=== PATIENT | male | born 1975 | race Caucasian/White ===

== ENCOUNTER 2019-11-26 10:58 | Outpatient (CLI) | payer OTHER, SELFPAY ==
--- NOTE | ~2019-11-26 | CT_ITS ---
EXAMINATION: CT sinus wo con DATE: 11/26/2019 11:22 INDICATION: Allergic rhinitis unspecified TECHNIQUE: Computed tomography (CT) of the paranasal sinuses was performed without intravenous contra st. The dose-length product (DLP) was 305.77 mGy-cm. Iterative reconstruction was used. COMPARISON: None FINDINGS: There is normal development and pneumatization of the paranasal sinuses. There is near comp lete opacification of the left anterior ethmoidal air cells and moderate opacification of the right a nterior ethmoidal air cells. Mild mucosal thickening is present inferiorly in the maxillary sinuses, left greater than right. There is mild mucosal thickening of the sphenoid sinuses. The mastoid air ce lls are well aerated. The bilateral ostiomeatal complexes are occluded. Visualized soft tissues are u nremarkable. IMPRESSION: 1. Sinusitis as detailed above. Reviewed, dictated and finalized at location A.
== END 2019-11-26 10:59 | disposition home or self-care (01) ==
LOC: ANHIMG 11:03
PROVIDERS: PCP Emergency Medicine; Visit Provider Emergency Medicine
DX: J30.9 Allergic rhinitis, unspecified (principal)
CPT/HCPCS: 70486

== ENCOUNTER 2019-12-24 00:54 | Outpatient (CLI) | payer OTHER, SELFPAY ==
[2019-12-24 19:08] LABS: SARS-CoV-2 RNA PCR Negative
== END 2019-12-24 00:55 | disposition home or self-care (01) ==
LOC: ANHCOVIDDT 00:54
PROVIDERS: PCP Emergency Medicine; Visit Provider Otolaryngology
DX: Z01.812 Encounter for preprocedural laboratory examination (principal); Z11.59 Encounter for screening for other viral diseases
CPT/HCPCS: 87635; C9803; U0003

== ENCOUNTER 2019-12-31 00:59 | Outpatient (CLI) | payer OTHER, SELFPAY ==
[2019-12-31 19:25] LABS: SARS-CoV-2 RNA PCR Negative
== END 2019-12-31 01:00 | disposition home or self-care (01) ==
LOC: ANHCOVIDDT 00:59
PROVIDERS: Anesthesiology; PCP Emergency Medicine; Visit Provider Otolaryngology
DX: Z01.818 Encounter for other preprocedural examination (principal); Z11.59 Encounter for screening for other viral diseases
CPT/HCPCS: 87635; C9803; U0003

== ENCOUNTER 2020-01-02 00:51 | Day surgery (SDC) | payer OTHER, SELFPAY ==
[2019-12-12 09:44] VITALS: BMI 37.3
--- NOTE | 2019-12-24 06:44 | PM.HPGS ---
History of Present Illness History of Present Illness Consent: Risks, benefits, and alternatives have been discussed and questions answered. Patient agrees to proceed with procedure. Chief complaint: Chronic Sinusitis, Septal Deviation Narrative: Neal Wagner is a 44 year old male is admitted for a septoplasty and an anterior-posterior ethmoidectomy and maxillary antrostomy on both sides Review of Systems Review of Systems: All systems reviewed & are unremarkable except as noted in HPI and below PMFSH Social History Social History Smoking status: Never smoker Alcohol intake: current Drinks per week: 2 Substance use: current Substance use type: marijuana Last use: 12/12/19 Spiritual care concerns: No Meds Home Medications and Allergies Home Medications Medication Instructions Recorded Confirmed Type alprazolam 0.5 mg tablet 0.5 mg PO BID PRN #30 tablet 11/06/19 12/12/19 Rx budesonide-formoterol HFA 80 2 puff INHALATION Q12H 11/06/19 12/12/19 History mcg-4.5 mcg/actuation aerosol inhaler fluticasone propionate 50 1 spray NASAL DAILY 11/06/19 12/12/19 History mcg/actuation nasal spray,suspension clindamycin HCl 300 mg capsule 300 mg PO Q8H #30 cap 12/11/19 12/12/19 Rx albuterol sulfate 90 mcg/actuation See Rx Instructions .ROUTE 12/18/19 Rx aerosol inhaler .COMPLEX #8.5 inhaler tramadol 50 mg tablet 50 mg PO Q6H PRN #30 tablet 12/18/19 12/18/19 Rx Allergies Allergy/AdvReac Type Severity Reaction Status Date / Time No Known Allergies Allergy Unverified 12/12/19 09:44 Assessment and Plan Additional Plan Septoplasty and anterior-posterior ethmoidectomy maxillary antrostomy bilateral
--- NOTE | 2019-12-26 15:29 | PC.NURSE ---
PREV HX AND MEDICATIONS REMAIN UNCHANGED FROM 12/22/19 ORIGINAL INTERVIEW. NEW COVID TEST DATE AND UPDATED INSTRUCTIONS GIVEN TO PATIENT.
--- NOTE | 2019-12-31 06:38 | PM.HPGS ---
History of Present Illness History of Present Illness Consent: Risks, benefits, and alternatives have been discussed and questions answered. Patient agrees to proceed with procedure. Chief complaint: Chronic Sinusitis, Septal Deviation Narrative: Neal Wagner is a 44 year old male Has recurring episodes of sinusitis been treated with various courses of antibiotics he has a deviated septum with obstruction and trouble breathing out of his nose he is admitted for elective septoplasty and sinus procedure anterior-posterior ethmoid maxillary antrostomy sphenoidotom Review of Systems Review of Systems: All systems reviewed & are unremarkable except as noted in HPI and below PMFSH Social History Social History Smoking status: Never smoker Alcohol intake: current Drinks per week: 2 Substance use: current Substance use type: marijuana Last use: 12/12/19 Spiritual care concerns: No Meds Home Medications and Allergies Home Medications Medication Instructions Recorded Confirmed Type alprazolam 0.5 mg tablet 0.5 mg PO BID PRN #30 tablet 11/06/19 12/12/19 Rx budesonide-formoterol HFA 80 2 puff INHALATION Q12H 11/06/19 12/12/19 History mcg-4.5 mcg/actuation aerosol inhaler fluticasone propionate 50 1 spray NASAL DAILY 11/06/19 12/12/19 History mcg/actuation nasal spray,suspension clindamycin HCl 300 mg capsule 300 mg PO Q8H #30 cap 12/11/19 12/12/19 Rx albuterol sulfate 90 mcg/actuation See Rx Instructions .ROUTE 12/18/19 12/26/19 Rx aerosol inhaler .COMPLEX #8.5 inhaler tramadol 50 mg tablet 50 mg PO Q6H PRN #30 tablet 12/18/19 12/26/19 Rx omeprazole 20 mg capsule,delayed See Rx Instructions .ROUTE 12/27/19 Rx release .COMPLEX #60 cap Allergies Allergy/AdvReac Type Severity Reaction Status Date / Time No Known Allergies Allergy Unverified 12/26/19 15:28 Assessment and Plan Additional Plan plan is for septoplasty bilateral anterior-posterior ethmoid maxillary antrostomy and sphenoidotomy bilater
[2020-01-02] VITALS (9 sets, daily range): BP systolic 104–140; BP diastolic 62–100; PULSE 85–96; RESP 14–35; TEMP 36.4–37.2; O2SAT 98–100
--- NOTE | 2020-01-02 06:05 | WPDHPUPDATE1 ---
History and Physical Update Update Date/Time: 01/02/20 06:05 History and Physical has been reviewed, including an updated exam of the patient. There are NO changes in the patient's condition. Risks, benefits, and alternatives have been discussed and questions answered. Patient agrees to proceed with procedure.
[2020-01-02] MEDS: ACETAMINOPHEN 500 MG TABLET 1000 MG PO (07:17)
[2020-01-02] MEDS: LACTATED RINGERS 1,000 ML 30 ML IV CONT ×2 (07:30→09:23)
--- NOTE | 2020-01-02 07:39 | WPDANESEPPF ---
Anes - Initial Pre Proc Eval Procedure: Operation Date: 01/02/20 09:00 Proposed Procedures p Septoplasty, Maxillary Antrostomy, Sphenoidotomy, Ethmoidectomy, - Kashmir Craig MD Date/Time: 01/02/20 07:39 Surgeon: Kashmir Craig MD Pre Op Diagnosis: Chronic Sinusitis, Septal Deviation Patient Data Age: 44 Gender: M Height: 5 ft 9 in Weight: 118.9 kg Last Vital Signs Temp 97.6 F 01/02/20 07:35 Pulse 96 01/02/20 07:35 Resp 20 01/02/20 07:35 BP 125/79 01/02/20 07:35 Pulse Ox 98 01/02/20 07:35 Allergies Allergy/AdvReac Type Severity Reaction Status Date / Time No Known Allergies Allergy Verified 01/02/20 07:11 Home Medications Medication Instructions Recorded Confirmed Type alprazolam 0.5 mg tablet 0.5 mg PO BID PRN #30 tablet 11/06/19 01/02/20 Rx budesonide-formoterol HFA 80 2 puff INHALATION Q12H 11/06/19 01/02/20 History mcg-4.5 mcg/actuation aerosol inhaler fluticasone propionate 50 1 spray NASAL DAILY 11/06/19 01/02/20 History mcg/actuation nasal spray,suspension albuterol sulfate 90 mcg/actuation See Rx Instructions .ROUTE 12/18/19 01/02/20 Rx aerosol inhaler .COMPLEX #8.5 inhaler tramadol 50 mg tablet 50 mg PO Q6H PRN #30 tablet 12/18/19 01/02/20 Rx omeprazole 20 mg capsule,delayed See Rx Instructions .ROUTE 12/27/19 01/02/20 Rx release .COMPLEX #60 cap Patient hx anesthesia problems: none Family hx anesthesia problems: none PMFSH Social History Social History Smoking status: Never smoker Alcohol intake: current Drinks per week: 2 Substance use: current Substance use type: marijuana Last use: 12/12/19 Spiritual care concerns: No Anes - Eval Final PreProcedure Day of Procedure 01/02/20 07:39 Patient weight: obese Heart: regular rate and rhythm Lungs: clear to auscultation Airway: Mallampati scale class III Neurological: alert and oriented Last oral intake: >/= 8 hours ASA classification: III Emergent: no Anesthetic plan: proceed Anesthesia type and monitoring: general ETT and standard monitoring Informed Consent: The patient's anesthetic plan and its attendant risks and benefits were discussed with the patient/family/POA. Questions were solicited and answers provided to the satisfaction of the patient/family/POA.
[2020-01-02] MEDS: MIDAZOLAM HCL 2 MG/2 ML VIAL IV PUSH (07:42)
[2020-01-02] MEDS: LIDO 1%/EPINEPHRINE 1:100,000 20 ML VIAL 5 ML INFILTRATE (08:39)
--- NOTE | 2020-01-02 09:17 | PM.PROC ---
Procedure Note - Detailed Date of procedure: 01/02/20 Pre-op diagnosis: Chronic Sinusitis, Septal Deviation Post-op diagnosis: same Procedure performed: FESS Description of procedure: Patient prepped and draped in usual fashion after induction of general endotracheal anesthesia. The nose was packed with cocaine 4% impregnated cottonoids. Injected 1% xylocaine 1 to [id number] epinephrine. With the aid of the 0 degree endoscope on the right side the nose was inspected the middle turbinate was medialized and turbenectomy was done with the micro debrider the ethmoid bulla opened with microdebrider as was the basal lamella and the posterior ethmoid. The natural ostia of the maxillary sinus was opened and enlarged with microdebrider thickened mucous membrane lining was removed and then packed with a mature this procedure repeated on the other sinus with identical similar findings. Uncinectomy was done on both sides. The ethomoid bulla was opened with micro debrider thickened mucos membrane was removed. Was then packed with Surgicel. Patient awakened returned to recovery in good condition. the septum was injected with xylocaine with adrenaline a right john transection was made a left anterior and posterior tunnels elevated the bony cartilage junction the bony deviation was removed a strip of septal cartilage was removed off the maxillary crest crest this rolling the cartilaginous and bony remnants the midline of the incision was closed with 4 0 chromic and Whiteside splints sutured in with 2 0 silk patient awakened returned to recovery in good condition Anesthesia: GLMA Surgeon: Kashmir Craig MD Estimated blood loss (mL): 10 Drains: No Packing: Yes (Hemaderm) Pathology: none sent Complications: No immediate complications Condition: stable Disposition: PACU
--- NOTE | 2020-01-02 10:24 | SUR.PHASEI ---
1010 pt states he is experiencing a panic attack/reassurance and comfort measures provided.
== END 2020-01-02 11:40 | disposition home or self-care (01) ==
PROVIDERS: PCP Emergency Medicine; Visit Provider Otolaryngology
PROC: (CPT 30520; principal; 2020-01-02 09:00)
DX: J32.9 Chronic sinusitis, unspecified (principal); J34.2 Deviated nasal septum; F12.90 Cannabis use, unspecified, uncomplicated; E66.9 Obesity, unspecified; Z68.38 Body mass index [BMI] 38.0-38.9, adult
CPT/HCPCS: 31255; 31256; 61782; 30520; A9270; J0330; J1100; J2250; J2405; J2704; J3010; J7120

== ENCOUNTER 2020-01-25 15:07 | Emergency (ER) | payer OTHER, SELFPAY ==
[2020-01-25 15:15] VITALS: BP 128/76; PULSE 99; RESP 24; TEMP 36.7; O2SAT 99
--- NOTE | 2020-01-25 15:33 | ED.ALLEREA ---
HPI - Allergic Reaction General Chief complaint: Allergic Reaction Stated complaint: upper lip swollen Time Seen by Provider: 01/25/20 15:15 Source: patient Mode of arrival: ambulatory Limitations: no limitations History of Present Illness HPI narrative: Neal Wagner is a 44 yo male wit a PMH of GERD and seasonal allrgies who comes to express care with a swollen lip cheek periorbital swelling of unknown cause. Patient states he had so surgery 2 weeks ago because of seasonal allergies in the spring with the bathtub use a [place] pot however use tap water instead of sterile water. He said when he got a bath he noticed that his lips started to swell he was able to eat a few things for lunch is not having difficulty swallowing at this point but face lips area around eyes and his posterior pharynx is mildly edematous Related Data Home Medications Medication Instructions Recorded Confirmed budesonide-formoterol HFA 80 2 puff INHALATION Q12H 11/06/19 01/02/20 mcg-4.5 mcg/actuation aerosol inhaler fluticasone propionate 50 1 spray NASAL DAILY 11/06/19 01/02/20 mcg/actuation nasal spray,suspension Allergies Allergy/AdvReac Type Severity Reaction Status Date / Time No Known Allergies Allergy Verified 01/02/20 07:11 Review of Systems Review of Systems: Narrative: CONSTITUTIONAL: Denies fever, chills, sweats. EYES: Denies visual changes, redness, discharge. Bilateral periorbital eye swelling ENT: Denies rhinorrhea, congestion, sore throat, otalgia. Lower lip is greatly swollen able to speak without difficulty CARDIOVASCULAR: Denies chest pain, palpitations, edema. RESPIRATORY: Denies dyspnea, wheezing, cough no respiratory distress but posterior pharynx is mildly edematous GASTROINTESTINAL: Denies abdominal pain, nausea, vomiting, diarrhea. GENITOURINARY: Denies dysuria, hematuria, abnormal discharge SKIN: Denies rash or itching. No erythema NEUROLOGIC: Denies numbness, or focal weakness. PSYCHIATRIC: Denies anxiety or depression. [facility] Past Medical History Medical History Anxiety Chronic bronchitis Dyspnea on exertion Fatigue GERD (gastroesophageal reflux disease) Family History Family History Other Diabetes mellitus Social History Social History Smoking status: Never smoker Alcohol intake: current Drinks per week: 2 Substance use: current Substance use type: marijuana Last use: 12/12/19 Spiritual care concerns: No Comments At time of signature, I agree with nursing past medical, surgical, social and family history. There is no relevant family history pertinent to the presenting complaint. Exam Narrative: Exam Narrative: GENERAL: This is a well-nourished, well-developed patient, in mild distress. HEAD: normocephalic, atraumatic. EYES:Sclera clear/white. Vision is grossly intact. Periorbital edema EARS: External ears normal, Hearing grossly intact. NOSE: External nose normal without nasal discharge, nares without redness, no rhinorrhea. THROAT: Mucous membranes moist, posterior pharynx mild edema, no respiratory compromise NECK: Neck supple, non-tender CARDIOVASCULAR: Tachycardic rate and rhythm without murmurs, gallops, or rubs. RESPIRATORY: Clear to auscultation. Breath sounds equal bilaterally. No wheezes, rales, or rhonchi. GASTROINTESTINAL: Abdomen soft, non-tender, SKIN: warm, intact with no suspicious lesions or rash, good texture and turgor. Facial swelling, lips swollen NEURO: awake, alert, and oriented to person, place and time. There were no obvious focal neurologic abnormalities. Steady gait EXTREMITIES: Normal range of motion. BACK: Nontender without deformity Course Course Emergency Course: Given Solu-Medrol Pepcid and Benadryl here Given Medrol Dosepak plus Pepcid plus Benadryl Cautioned to
[2020-01-25] MEDS: methylPREDNISolone SOD SUCC 125 MG VIAL IM (15:42)
[2020-01-25] MEDS: diphenhydrAMINE HCl CAP 25 MG CAPSULE PO (15:42)
[2020-01-25] MEDS: FAMOTIDINE 20 MG TABLET PO (15:42)
== END 2020-01-25 16:08 | disposition home or self-care (01) ==
PROVIDERS: Emergency Provider Nurse Practitioner; PCP Emergency Medicine
DX: T78.3XXA Angioneurotic edema, initial encounter (principal); F41.9 Anxiety disorder, unspecified; K21.9 Gastro-esophageal reflux disease without esophagitis
CPT/HCPCS: 96372; 99213; A9270; G0463; J2930

== ENCOUNTER 2020-03-12 09:23 | Emergency (ER) | payer OTHER, SELFPAY ==
--- NOTE | ~2020-03-12 | XR_ITS ---
EXAMINATION: XR chest 2V DATE: 03/12/2020 09:58 INDICATION: Cough. TECHNIQUE: Frontal and lateral views of the chest were obtained. COMPARISON: None. FINDINGS: The chest demonstrates clear lungs without pneumonia, pleural effusion, or pneumothorax. Th e heart size is normal. IMPRESSION: 1. No acute cardiopulmonary disease. Reviewed, dictated and finalized at location A.
[2020-03-12 09:40] VITALS: BP 121/78; PULSE 115; RESP 20; TEMP 36.6; O2SAT 98
--- NOTE | 2020-03-12 09:43 | ED.URI ---
HPI - URI/Sore Throat General Chief Complaint: Upper Respiratory Infection Stated Complaint: chest congestion/shortness of breath/cough Time Seen by Provider: 03/12/20 09:49 Source: patient and RN notes reviewed History of Present Illness HPI Narrative: Patient is a 44-year-old male who presents the urgent care with complaints of chest congestion, shortness of breath and productive yellow cough. Patient states he is experiencing symptoms for approximately 7 months and has been following up with his doctor and ENT. Patient states 1 month ago he had a deviated septum repaired by the ENT and was supposed to rid of his shortness of breath . Patient states that it has not improved and he has been on several courses of steroids as well as using his inhaler. Patient states that in the last week he has had increased wheezing and multiple coughing fits. Patient is also had several negative COVID test. Currently is reporting of a runny nose, congestion, shortness of breath and cough. Denies of any fevers. States that he has been using [id number] cough medication, Claritin, Benadryl and the use of his inhaler. Denies chest pain. No other acute complaints. No acute distress noted. Patient aware of the plan of care. Some parts of this dictation were generated by voice recognition software and may contain typographical and/or grammatical inaccuracies. Related Data Allergies Allergy/AdvReac Type Severity Reaction Status Date / Time No Known Allergies Allergy Verified 03/12/20 09:46 Review of Systems Review of Systems: Narrative: CONSTITUTIONAL: Denies fever, chills, or sweats. EYES: Denies visual changes, redness, or discharge. ENT: Reports of runny nose and left otalgia CARDIOVASCULAR: Denies chest pain, palpitations, or edema. RESPIRATORY: Reports of a productive yellow cough with intermittent dyspnea GASTROINTESTINAL: Denies abdominal pain, nausea, vomiting, or diarrhea. GENITOURINARY: Denies dysuria or hematuria. SKIN: Denies rash or itching. MUSCULOSKELETAL: Denies back pain, joint pain, or myalgia. NEUROLOGIC: Denies headache, numbness, or weakness. All other systems reviewed are negative, except as documented in HPI. [facility] Social History Social History Smoking status: Never smoker Alcohol intake: current Drinks per week: 2 Substance use: current Substance use type: marijuana Last use: 12/12/19 Spiritual care concerns: No Comments At the time of my signature, I reviewed and agree with the nursing past medical, surgical, social, and family history. There is no relevant family history pertinent to the patient complaint. Exam Narrative: Exam Narrative: GENERAL: This is a well-nourished, well-developed patient, in no apparent distress. HEAD: normocephalic, atraumatic. EYES: PERRL. Sclera clear/white. Vision is grossly intact. EARS: External ears normal, auditory canals clear and without drainage, TMs normal without perforation. Hearing grossly intact. NOSE: External nose normal with no obvious nasal discharge, nares without redness, no rhinorrhea. THROAT: Mucous membranes moist, posterior pharynx clear. Mild postnasal drainage NECK: Neck supple CARDIOVASCULAR: Regular rate and rhythm without murmurs, gallops, or rubs. RESPIRATORY: Inspiratory and expiratory wheezes throughout with slight crackles to the bases; audible wheezing SKIN: warm, intact with no suspicious lesions or rash, good texture and turgor. NEURO: awake, alert, and oriented to person, place and time. There were no obvious focal neurologic abnormalities. EXTREMITIES: No clubbing, cyanosis, or edema. Course Vital Signs Vital signs: Vital Signs Temperature 97.9 F 03/12/20 09:40 Pulse Rate 115 H 03/12/20 09:40 Respiratory Rate 20 03/12/20 09:40 Blood Pressure 121/78 03/12/20 09:40 Pulse Oximetry 98 03/12/20 09:40 Temperature 97.9 F 03/12/20 09:40 Pulse Rate 115 H 10/0
== END 2020-03-12 10:28 | disposition home or self-care (01) ==
PROVIDERS: Emergency Provider Nurse Practitioner Family; PCP Emergency Medicine
DX: J40 Bronchitis, not specified as acute or chronic (principal); K21.9 Gastro-esophageal reflux disease without esophagitis; F41.9 Anxiety disorder, unspecified
CPT/HCPCS: 71046; 99213; G0463

== ENCOUNTER 2020-03-17 06:55 | Outpatient (NON) | payer OTHER, SELFPAY ==
[2020-03-17 18:17] LABS: SARS-CoV-2 RNA PCR Negative
== END 2020-03-17 06:56 ==
PROVIDERS: PCP Emergency Medicine; Visit Provider Emergency Medicine
DX: R05 Cough (principal); Z20.828 Contact with and (suspected) exposure to other viral communicable diseases
CPT/HCPCS: 87635; C9803; U0003

== ENCOUNTER → 2020-03-19 15:44 | Outpatient (CLI) | payer OTHER, SELFPAY ==
--- NOTE | ~2020-03-19 | CT_ITS ---
EXAMINATION:CT chest wo con DATE: 03/19/2020 16:01 INDICATION: Cough and shortness of breath. TECHNIQUE: Computed tomography (CT) of the chest was performed without intravenous contrast. Automate d exposure control and iterative reconstruction technique were employed. The dose-length product (DLP ) was 676.36 mGy-cm. COMPARISON: Chest 2 views 03/12/2020 FINDINGS: There is mild emphysema. There are a few nodules in the lungs measuring up to 4 mm, likely benign. No pleural effusion. There are borderline enlarged mediastinal lymph nodes, likely reactive. The heart size is normal. No pericardial effusion. There is mild bilateral gynecomastia. There is a s mall sliding hiatal hernia. There is mild thoracic spondylosis. IMPRESSION: 1. Mild emphysema. 2. Small sliding hiatal hernia. Reviewed, dictated and finalized at location B.
== END ==
PROVIDERS: PCP Emergency Medicine; Visit Provider Emergency Medicine
DX: R06.00 Dyspnea, unspecified (principal); J43.9 Emphysema, unspecified; K44.9 Diaphragmatic hernia without obstruction or gangrene
CPT/HCPCS: 71250

== ENCOUNTER 2020-06-25 07:23 | Outpatient (CLI) | payer OTHER, MEDICAID, SELFPAY ==
--- NOTE | 2020-06-26 17:29 | WPDPFTINT ---
PFT Interpretation This is a pulmonary function test with pre and post-bronchodilator spirometry, plethysmography and diffusing capacity. The test was performed and results interpreted in accordance with the 2019 and 2005 ATS/ERS Task Force guidelines respectively using the Nikunj/Polgar reference equations. of note the patient had a near syncopal episode on the 2nd post bronchodilator spirometry effort. The test was stopped prior to the 3rd attempt and the patient recovered prior to discharge. Findings: Spirometry: There is decreased maximal expiratory airflow at all lung volumes with concave expiratory flow tracing. The pre bronchodilator FVC is 4.30 L, 87% predicted. The pre bronchodilator FEV1 is 2.65 L, 71% predicted. The FEV1: FVC ratio was 62%. The post bronchodilator FVC is 5.18 L, representing a 20% increase. The post bronchodilator FEV1 is 3.39 L, representing a 28% increase. Plethysmography: The total lung capacity is 7.98 L, 119% predicted. Functional residual capacity is 3.43 L, 118% predicted. The residual volume is 2.95 L, 148% predicted. Diffusing capacity: The absolute diffusion capacity is 26.7, 81% predicted. The diffusing capacity corrected for alveolar volume is 5.32, 125% predicted. Impression: There is a mild obstructive abnormality with significant improvement after inhaling a single dose of albuterol. The increase in residual volume is consistent with air trapping from an obstructive abnormality. The absolute diffusing capacity is normal but increased when corrected for alveolar volume. There are no prior studies for comparison
== END 2020-06-25 07:24 | disposition home or self-care (01) ==
PROVIDERS: Visit Provider Internal Medicine Critical Care Medicine
DX: R06.00 Dyspnea, unspecified (principal); R94.2 Abnormal results of pulmonary function studies
CPT/HCPCS: 94060; 94726; 94729

== ENCOUNTER 2020-06-29 05:48 | Emergency (ER) | payer OTHER, MEDICAID, SELFPAY ==
--- NOTE | ~2020-06-29 | XR_ITS ---
EXAMINATION: XR chest 1V portable EXAM DATE: 06/29/2020 06:35 INDICATION: Shortness of breath. TECHNIQUE: Portable AP frontal chest x-ray was obtained. Comparison is made to prior examination from 03/12/2020. FINDINGS: Mild hyperinflation unchanged. The lungs are clear. There are no pleural effusions. The c ardiomediastinal silhouette is within normal limits. There is no pneumothorax suspected. The bones and soft tissues are unremarkable. IMPRESSION: No acute cardiopulmonary findings. Reviewed, dictated and finalized at location A. OLOGY TEACHER
[2020-06-29 05:51] VITALS: BP 144/102; PULSE 117; RESP 20; TEMP 36.3; O2SAT 96
--- NOTE | 2020-06-29 05:58 | ECG_ITS ---
Measurements Intervals [place] Rate: 116 P: 53 [place]: 126 QRS: 26 QRSD: 84 T: 30 QT: 305 QTc: 425 Interpretive Statements SINUS TACHYCARDIA NONSPECIFIC T-WAVE ABNORMALITY- INFERIOR LEADS BASELINE ARTIFACT- I, II, V1-V2 ABNORMAL ECG Electronically Signed On 06-29-2020 7:20:31 [employer] by Tay Reyes D.O.
[2020-06-29 06:07] LABS: White Blood Count 13.4 K/mm3 (4.5-10.0)
[2020-06-29 06:08] LABS: Basophils Absolute Auto 0.1 K/mm3 (0.0-0.1); Basophils Percent Auto 0.9 % (0.2-1.2); Eosinophils Absolute Auto 1.2 K/mm3 (0-0.3); Eosinophils Percent Auto 9.2 % (0-4.4); Hematocrit 46.9 % (42.0-52.0); Hemoglobin 15.3 g/dL (14.0-18.0); Immature Granulocyte Absolute 0.08 K/mm3 (0.00-0.031); Immature Granulocyte Percent A 0.6 % (0-0.5); Lymphocytes Absolute Auto 2.97 K/mm3 (0.9-3.2); Lymphocytes Percent Auto 22.2 % (18.3-44.2); Mean Corpuscular HGB Conc 32.6 g/dl (32-36); Mean Corpuscular Hemoglobin 30.8 pg (26-34); Mean Corpuscular Volume 94.4 fl (80-100); Monocytes Absolute Auto 0.8 K/mm3 (0.1-0.6); Monocytes Percent Auto 5.7 % (2.6-8.5); Neutrophils Absolute Auto 8.2 K/mm3 (1.3-6.7); Neutrophils Percent Auto 61.4 % (45.5-73.1); Platelet Count Result 272 k/mm3 (150-375); Red Blood Count 4.97 M/mm3 (4.6-6.20); Red Cell Distribution Width 12.6 % (11.5-14.5)
--- NOTE | 2020-06-29 06:13 | ED.SOB ---
HPI - SOB/Dyspnea General Chief Complaint: Shortness of Breath/Dyspnea Stated Complaint: SOB Time Seen by Provider: 06/29/20 06:00 Source: patient Mode of arrival: ambulatory Limitations: no limitations History of Present Illness HPI Narrative: Patient is 44 years old white male presents with productive cough for the last few days. Patient denies any fever, chills, nausea, vomiting, chest pain, sore throat, headache, history of COVID-19 infection or exposure to anybody known to have COVID-19. 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 Patient quit smoking years ago, does not drink, uses marijuana Patient denies any body at work or at home having similar symptoms. Related Data Allergies Allergy/AdvReac Type Severity Reaction Status Date / Time No Known Allergies Allergy Verified 06/29/20 06:07 Review of Systems Review of Systems: Narrative: CONSTITUTIONAL: Denies fever, chills, or sweats. EYES: Denies visual changes, redness, or discharge. ENT: Denies rhinorrhea, congestion, sore throat, or otalgia. CARDIOVASCULAR: Denies chest pain, palpitations, or edema. RESPIRATORY: Denies cough or dyspnea. GASTROINTESTINAL: Denies abdominal pain, nausea, vomiting, or diarrhea. GENITOURINARY: Denies dysuria or hematuria. SKIN: Denies rash or itching. MUSCULOSKELETAL: Denies back pain, joint pain, or myalgia. NEUROLOGIC: Denies headache, numbness, or weakness. PSYCHIATRIC: Denies anxiety or depression. PMFSH Past Medical History Medical History (Updated 06/29/20 @ 07:06 by Joan Echeverria MD) Anxiety Chronic bronchitis Dyspnea on exertion Fatigue GERD (gastroesophageal reflux disease) Family History Family History Other Diabetes mellitus Social History Social History Smoking status: Never smoker Alcohol intake: current Drinks per week: 2 Substance use: current Substance use type: marijuana Last use: 12/12/19 Spiritual care concerns: No Exam Narrative: Exam Narrative: General appearance: Well-developed, well-nourished does not look in pain or distress, no significant other at the bedside Skin: Normal color Eyes: Clear conjunctiva ENT: Oropharynx normal, ears normal, nose normal Neck: No JVD Chest and respiratory: Airway patent, no respiratory distress, no accessory muscle use, few scattered rhonchi and wheezing Heart: Tachycardia Abdomen: Soft, nontender, no organomegaly, quiet bowel sounds Vascular: Normal peripheral pulses, normal capillary refill. Neurologic: Alert and oriented ?3 Course Course Emergency Course: Stable Vital Signs Vital signs: Vital Signs Temperature 36.3 C L 06/29/20 05:51 Pulse Rate 117 H 06/29/20 05:51 Respiratory Rate 20 06/29/20 05:51 Blood Pressure 144/102 H 06/29/20 05:51 Pulse Oximetry 96 06/29/20 05:51 Temperature 36.3 C L 06/29/20 05:51 Pulse Rate 117 H 06/29/20 05:51 Respiratory Rate 20 06/29/20 05:51 Blood Pressure 144/102 H 06/29/20 05:51 Pulse Oximetry 96 06/29/20 05:51 MDM - SOB/Dyspnea MDM Narrative Medical decision making narrative: Patient presents with shortness of breath and productive cough. History of asthma. Labs, chest x-ray, ABG on room air, Covid test ordered. Further plan to follow. Differential Diagnosis Differential diagnosis: Likely congestive heart failure, community acquired pneumonia, asthma with exacerbation and pulmonary embolism Lab Data Result diagrams: 06/29/20 06:01 06/29/20 06:01 Labs: Lab Results 06/29/20 06/29/20 06/29/20 Range/Units 06:01 06:01 06:01 WBC Pe
[2020-06-29 06:17] LABS: INR 0.8; Partial Thromboplastin Time 26.7 SECONDS (22.3-36.8)
[2020-06-29 06:20] LABS: D Dimer 0.31 ug/mL (<0.48)
[2020-06-29 06:22] LABS: Alanine Aminotransferase 31 U/L (4-50); Albumin Level 4.1 g/dL (3.5-5.1); Alkaline Phosphatase 79 U/L (38-126); Anion Gap 3 mmol/L (8-16); Aspartate Amino Transferase 25 U/L (17-59); Bilirubin,Total 0.6 mg/dL (0.2-1.3); Blood Urea Nitrogen 17 mg/dL (9-20); Calcium 9.8 mg/dL (8.4-10.2); Carbon Dioxide 28 mmol/L (22-30); Chloride 108 mmol/L (98-107); Estimated CRCL calculation 92 ml/min; Estimated Glomerular Filt Rate > 60; Glucose 129 mg/dL (75-110); Sodium 139 mmol/L (137-145)
[2020-06-29 06:28] LABS: Alveolar/Arterial O2 Gradient 32.4 mmHg; Base Excess ABG -1.5 mEq/l (+/-2.0); Device ROOM AIR; Fractional Inspired Oxygen 21 %; HCO3 ABG 20.8 mEq/l (22.0-26.0); Modified Allen's Test Pass; Oxygen Content ABG 20.9 %vol (16.0-22.0); Oxygen Saturation ABG 96.8 % (95.0-100.0); Oxyhemoglobin 95.2 % THb (90.0-100.0); PCO2 ABG 29.4 mmHg (35.0-45.0); PO2 ABG 82.1 mmHg (80.0-100.0); PO2 FiO2 Ratio Arterial Blood 3.91 %; Site Drawn LEFT RADIAL; Total Hemoglobin 15.6 g/dL (12.0-18.0); pH ABG 7.468 (7.350-7.450)
[2020-06-29 06:36] LABS: Troponin I < 0.012 ng/mL (0.000-0.034)
[2020-06-29 07:25] VITALS: BP 124/95; PULSE 107; RESP 16; O2SAT 99
[2020-06-29 08:22] LABS: NT Pro B Type Natriuretic Pept 15 PG/ML (5-100)
[2020-06-29 16:31] LABS: SARS-CoV-2 RNA PCR Negative
== END 2020-06-29 07:25 | disposition home or self-care (01) ==
PROVIDERS: Emergency Provider Emergency Medicine; PCP Physician Assistant
DX: J41.8 Mixed simple and mucopurulent chronic bronchitis (principal); Z87.891 Personal history of nicotine dependence; Z20.822 Contact with and (suspected) exposure to COVID-19; K21.9 Gastro-esophageal reflux disease without esophagitis; F41.9 Anxiety disorder, unspecified; J45.21 Mild intermittent asthma with (acute) exacerbation
CPT/HCPCS: 36415; 36600; 71045; 80053; 82805; 83880; 84484; 85025; 85380; 85610; 85730; 93005; 99284; C9803; U0003; U0005

== ENCOUNTER 2020-07-15 09:20 | Outpatient (CLI) | payer OTHER, MEDICAID, SELFPAY | END 2020-07-15 09:21 | disposition home or self-care (01) | PROVIDERS: Visit Provider Internal Medicine Critical Care Medicine | DX: R06.00 Dyspnea, unspecified (principal) | CPT/HCPCS: 36415; 82785; 86003 ==

== ENCOUNTER 2020-08-07 08:36 | Outpatient (CLI) | payer OTHER, SELFPAY ==
--- NOTE | 2020-08-07 08:41 | ECHO_ITS ---
Patient Info Name: Neal Wagner Age: 44 years : 1975 Gender: Male Ht: 69 in Wt: 280 lbs BSA: 2.55 m2 HR: 81 bpm BP: 136 / 84 mmHg Technical Quality: Good Exam Date: 08/07/2020 9:09 AM Exam Location: [facility] Patient Status: Outpatient Admit Date: 08/07/2020 Staff Ordering Physician: Salma Queen MD Emergency Vehicle Operator: Diana Boyce RDCS Attending Provider: Salma Queen MD Referring Physician: Bret TOBAR; Exam Type: CA echo doppler color flow Study Info Indications R06.00 - Dyspnea, unspecified Complete two-dimensional, color flow and Doppler transthoracic echocardiogram is performed. Summary 1. Complete two-dimensional, color flow and Doppler transthoracic echocardiogram is performed. 2. Left ventricular chamber dimension is normal. 3. Left ventricular systolic function is normal, estimated at 60-65%. 4. The left ventricular diastolic function is normal. 5. E/e' 9 is minimally elevated. 6. No pulmonary hypertension, estimated pulmonary arterial systolic pressure is 21 mmHg. Left Ventricle E/e' 9 is minimally elevated. Left ventricular chamber dimension is normal. Left ventricular systolic function is normal, estimated at 60-65%. The left ventricular diastolic function is normal. Right Ventricle Right ventricular systolic function is normal. TAPSE is not performed. Right ventricular chamber dimension is normal. Left Atria Left atrial chamber dimension is normal. Right Atria Right atrial chamber dimension is normal. Aortic Valve The aortic valve is trileaflet. There is no aortic valve stenosis. There is no aortic valve regurgitation. Pulmonic Valve There is no pulmonic regurgitation. Mitral Valve There is no mitral valve stenosis. There is no mitral valve regurgitation. Tricuspid Valve There is no tricuspid valve regurgitation. No pulmonary hypertension, estimated pulmonary arterial systolic pressure is 21 mmHg. Pericardium/Pleural There is no pericardial effusion. Inferior Vena Cava Normal inferior vena cava with >50% collapse upon inspiration consistent with normal right atrial pressure, 5 mmHg. Aorta The aortic root size at the sinus of Valsalva is normal. Left Ventricular Outflow Tract Name Value Normal LVOT 2D LVOT Diameter 2.1 cm LVOT Doppler LVOT Peak Gradient 4 mmHg LVOT Mean Gradient 2 mmHg LVOT VTI 18 cm LVOT VTI/AV VTI Ratio 1.0 LVOT Stroke Volume 63 ml LVOT CO 13.7 l/min LVOT CI 5.4 l/min/m2 Pulmonic Valve Name Value Normal PV Doppler PV Peak Gradient 2 mmHg PV Regurgitation Doppler
== END 2020-08-07 08:37 | disposition home or self-care (01) ==
PROVIDERS: Visit Provider Internal Medicine Critical Care Medicine
DX: R06.00 Dyspnea, unspecified (principal)
CPT/HCPCS: 93306

== ENCOUNTER 2020-11-16 12:47 | Emergency (ER) | payer OTHER, MEDICAID, SELFPAY ==
[2020-11-16 13:00] VITALS: BP 135/95; PULSE 131; RESP 20; TEMP 36.6; O2SAT 94
--- NOTE | 2020-11-16 13:25 | ED.URI ---
HPI - URI/Sore Throat General Chief Complaint: Upper Respiratory Infection Stated Complaint: Shortness of breath, Chest pain, Coughing Time Seen by Provider: 11/16/20 13:25 Source: patient, RN notes reviewed and old records reviewed Mode of arrival: ambulatory Limitations: no limitations History of Present Illness HPI Narrative: 45 year old male who [facility] with complaints of cough, shortness of breath, headache, sinus pressure and post nasal drainage for a long time with increase in symptoms for the past 2 days. 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 Patient states no fevers, has clear nasal drainage and states that cough and shortness have increased despite use of inhalers. He is very anxious, states that he had to call off work today due to his symptoms. MD elicited complaint: cough, nasal congestion, sinus pain and other (shortness of breath) Pertinent past history: asthma and other (allergies) Onset (ago): day(s) (increased symptoms for past 2 days) Consistency: progressively worsening Severity: moderate Description of mucous: clear Able to tolerate fluids by mouth: Yes Exacerbating factors: exertion Relieving factors: nothing Associated symptoms: rhinorrhea, nasal congestion, cough and shortness of breath Treatments prior to arrival: other (inhalers) Related Data Home Medications Medication Instructions Recorded Confirmed buspirone 15 mg PO BID 11/16/20 11/16/20 tiotropium bromide [Spiriva 2 puff INHALATION DAILY 11/16/20 11/16/20 Respimat] Allergies Allergy/AdvReac Type Severity Reaction Status Date / Time No Known Allergies Allergy Verified 11/16/20 13:26 Review of Systems Review of Systems: Narrative: CONSTITUTIONAL: Denies fever, chills, or sweats. EYES: Denies visual changes, redness, or discharge. ENT:Positive rhinorrhea, congestion,no sore throat, or otalgia. CARDIOVASCULAR: Denies chest pain, palpitations, or edema, is tachycardic states tightness with breathing denies acute pain RESPIRATORY: Positive cough or dyspnea. GASTROINTESTINAL: Denies abdominal pain, nausea, vomiting, or diarrhea. GENITOURINARY: Denies dysuria or hematuria. SKIN: Denies rash or itching. MUSCULOSKELETAL: Denies back pain, joint pain, or myalgia. NEUROLOGIC: Positive headache,no numbness, or weakness. PSYCHIATRIC: positive anxiety or depression. All systems reviewed & are unremarkable except as noted in HPI and below PMFSH Past Medical History Medical History (Updated 11/17/20 @ 00:01 by Annalee Mckeon) Anxiety Chronic bronchitis Dyspnea on exertion Fatigue GERD (gastroesophageal reflux disease) Surgical History Surgical History (Updated 11/20/20 @ 12:38 by Mariann Brooks NP) History of sinus surgery Hx of nasal septoplasty Family History Family History Other Diabetes mellitus Social History Social History Smoking status: Former smoker Alcohol intake: current Drinks per week: 2 Substance use: current Substance use type: marijuana Last use: 12/12/19 Spiritual care concerns: No Comments At time of signature, agree with nursing past medical, surgical, social and family history. There is no relevant family history pertinent to the presenting complaint Exam Narrative: Exam Narrative: GENERAL: Well-appearing, well-nourished, and in no acute distress.anxious HEAD: Normocephalic, atraumatic. EYES: PERRLA and EOMI. ENT: Nares with mild redness, clear rhinorrhea or epistaxis. Mucous membranes moist.TM's normal with good light reflex, throat mildly red with no lesions or exudates or tonsil adenopathy, clear post nasal drainage present. NECK: Supple, no lymphadenopathy CHEST
[2020-11-16] MEDS: IPRATROPIUM BR 0.02% INH SOLN 0.5 MG/2.5 ML VIAL INHALATION (13:32)
[2020-11-16] MEDS: ALBUTEROL SULFATE NEB 2.5 MG/3 ML INH INHALATION (13:32)
--- NOTE | 2020-11-16 14:05 | ED.URI ---
HPI - URI/Sore Throat General Chief Complaint: Upper Respiratory Infection Stated Complaint: Shortness of breath, Chest pain, Coughing Time Seen by Provider: 11/16/20 13:25 Source: patient, RN notes reviewed and old records reviewed Mode of arrival: ambulatory Limitations: no limitations History of Present Illness HPI Narrative: 45 year old male presents to [facility] care with complaints of increased dyspnea related to his asthma Pertinent past history: asthma Consistency: progressively worsening Related Data Home Medications Medication Instructions Recorded Confirmed buspirone 15 mg PO BID 11/16/20 11/16/20 tiotropium bromide [Spiriva 2 puff INHALATION DAILY 11/16/20 11/16/20 Respimat] Allergies Allergy/AdvReac Type Severity Reaction Status Date / Time No Known Allergies Allergy Verified 11/16/20 13:26 Review of Systems Review of Systems: Narrative: CONSTITUTIONAL: Denies fever, chills, or sweats. EYES: Denies visual changes, redness, or discharge. ENT: Denies rhinorrhea, congestion, sore throat, or otalgia. CARDIOVASCULAR: Denies chest pain, palpitations, or edema. RESPIRATORY: Denies cough or dyspnea. GASTROINTESTINAL: Denies abdominal pain, nausea, vomiting, or diarrhea. GENITOURINARY: Denies dysuria or hematuria. SKIN: Denies rash or itching. MUSCULOSKELETAL: Denies back pain, joint pain, or myalgia. NEUROLOGIC: Denies headache, numbness, or weakness. PSYCHIATRIC: Denies anxiety or depression. All systems reviewed & are unremarkable except as noted in HPI and below PMFSH Past Medical History Medical History (Updated 11/17/20 @ 00:01 by Annalee Mckeon) Anxiety Chronic bronchitis Dyspnea on exertion Fatigue GERD (gastroesophageal reflux disease) Family History Family History Other Diabetes mellitus Social History Social History Smoking status: Former smoker Alcohol intake: current Drinks per week: 2 Substance use: current Substance use type: marijuana Last use: 12/12/19 Spiritual care concerns: No Comments At time of signature, agree with nursing past medical, surgical, social and family history. There is no relevant family history pertinent to the presenting complaint Exam Narrative: Exam Narrative: GENERAL: Well-appearing, well-nourished, and in no acute distress. HEAD: Normocephalic, atraumatic. EYES: PERRLA and EOMI. ENT: Nares clear, no rhinorrhea or epistaxis. Mucous membranes moist. NECK: Supple. CHEST: Clear to auscultation. No respiratory distress. HEART: Regular rate and rhythm. No murmur heard. Normal peripheral pulses. ABDOMEN: Soft, nontender, nondistended, normal active bowel sounds. EXTREMITIES: Normal range of motion. No edema. SKIN: Warm, dry, no rash. NEURO: No focal deficits. Alert and oriented x3. Course Vital Signs Vital signs: Vital Signs Temperature 36.6 C 11/16/20 13:00 Pulse Rate 131 H 11/16/20 13:00 Respiratory Rate 20 11/16/20 13:00 Blood Pressure 135/95 H 11/16/20 13:00 Pulse Oximetry 94 11/16/20 13:00 Temperature 36.6 C 11/16/20 13:00 Pulse Rate 131 H 11/16/20 13:00 Respiratory Rate 20 11/16/20 13:00 Blood Pressure 135/95 H 11/16/20 13:00 Pulse Oximetry 94 11/16/20 13:00 MDM - URI/Sore Throat Differential Diagnosis Differential diagnosis: Likely upper respiratory infection, bronchitis and other (Exacerbation of asthma) Medical Records Attestation: I reviewed the patient's medical records. Critical Care Time Critical Care Time Critical Care Time: No Discharge Plan Discharge Clinical Impression: Asthma exacerbation Patient Disposition: Home, Self-Care Condition: Stable Instructions: Asthma (ED) Additional Instructions: Increase fluids especially juices and water [id number] cough and cold medicine of your choice for your symptoms Continue your inhaler/nebulizer as d
== END 2020-11-16 14:20 | disposition home or self-care (01) ==
PROVIDERS: Emergency Provider Registered Nurse
DX: J45.901 Unspecified asthma with (acute) exacerbation (principal); Z87.891 Personal history of nicotine dependence; K21.9 Gastro-esophageal reflux disease without esophagitis
CPT/HCPCS: 94640; 99213; G0463

== ENCOUNTER 2024-12-27 08:04 | Emergency (ER) | payer OTHER, SELFPAY ==
--- NOTE | ~2024-12-27 | XR_ITS ---
XR elbow LT min 3V Ordering provider: Opal Cuevas NP History: . FOOSH INJURY, GEN PAIN . Comparison: None. FINDINGS: BONES: Fracture in the proximal one third of the radius is noted JOINT SPACES: Normal. SOFT TISSUES: Normal. No definite joint effusion. IMPRESSION: Fracture in the proximal one third of the left radius. Reviewed, dictated and finalized at location A.
--- OUTSIDE RECORDS SUMMARY | 2024-12-27 08:06 | XMS_ITS | Clinical Summary ---
Author Organization [facility] Address [address] [place] [id number] Care Team Providers Care Trimming Caser Name Role Phone Jaren Sosa MD Primary Care Provider Allergies No known active allergies Medications ibuprofen (ADVIL,MOTRIN) 800 mg tablet take 1 tablet by oral route tid prn 90 6 07/09/2015 Active fluticasone propion-salmetero L (ADVAIR DISKUS) 500-50 mcg/dose diskus inhalerIndication s:Maintenance Therapy for Asthma Inhale 1 puff 2 (two) times a day Rinse mouth with water after use. Do not swallow. 60 each 3 02/19/2021 Active budesonide-formot Dougie (Symbicort) 160-4.5 mcg/actuation inhalerIndication s:Severe persistent asthma without complication (HCC) Inhale 2 puffs 2 (two) times a day Rinse mouth with water after use. Do not swallow. 1 each 11 04/12/2021 Active Active Problems Problem Noted Date Diagnosed Date Environmental allergies CLEARY (dyspnea on exertion) Immunizations Immunization Administration Dates Next Due Influenza, Split 03/12/2011 Influenza, Trivalent, High D ose, Split, Preservative Free, Intramuscular 03/02/2016 Tdap 07/13/2003 Surgical History Surgery Date Site/Laterality Comments OTHER SURGICAL HISTORY lumbar disc surg NASAL SEPTUM SURGERY CYST REMOVAL neck Medical History Medical History Date Comments Calculus of kidney kidney stones Gastroesophageal reflux disease GERD Hx Other Medical attention defic it hyperactivity d/o Insomnia Insomnia Anxiety disorder Anxiety Family History Medical History Relation Name Comments COPD Father COPD; Depression Father Depression; dec eased Diabetes Father Diabetes mellit us; Hypertension Father Hypertension; d eceased Depression Mother Depression; kathryn ing Diabetes Mother Diabetes mellit us; living Hypertension Mother Hypertension; l iving Other Sister 2 Alive and well; Relation Name Status Comments Father Alive Mother Alive Sister 1 Alive Sister 2 Social History Tobacco Use Types Packs/Day Years Used Date Smoking Tobacco: Former Cigarettes Q uit: 06/12/2008 Alcohol Use Standard Drinks/Week Comments Yes 0 (1 standard drink = 0.6 oz pur e alcohol) AUDIT-C Answer Date Recorded Q1: How often do you have a drink containing alc ohol? Monthly or less 02/19/2021 Q2: How many drinks containi ng alcohol do you have on a typical day when you are drinking? 1 or 2 02/19/2021 Q3: How often do you have si x or more drinks on one occasion? 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 Gender Identity Not on file Sexual Orientation Not on file Obstetrics History Last Filed Vital Signs Vital Sign Reading Time Taken Comments Blood Pressure 116/82 04/12/2021 3:19 PM CDT Pulse 106 04/12/2021 3:19 PM CDT Temperature 36.7 C (98.1 F) 04/12/2021 3:19 PM CDT Respiratory Rate 20 04/12/2021 3:19 PM CDT Oxygen Saturation 97% 04/12/2021 3:19 PM CDT Inhaled Oxygen Concentration - - Weight 127.5 kg (281 lb) 04/12/2021 3:19 PM CDT Height 179.1 cm (5' 10.5) 04/12/2021 3:19 PM CD T Body Mass Index 39.75 04/12/2021 3:19 PM CDT Plan of Treatment Health Maintenance Due Date Last Done Comments Depression Screening 1975 Hepatitis C Screening 1975 Hepatitis B Screening 09/19/1995 Regular Well Visit/Exam 18-64 09/19/1995 DTaP/Tdap/Td Vaccine (2 - Td or Tdap) 07/13/2013 07/13/2003 Colon Cancer Screening-Colonoscopy 11/19/2020 11/19/2010 Covid-19 Vaccine ( season) 2024 08/17/2020 Influenza Vaccine (Season Ended) 2025 04/09/2020, 03/02/2016, 03/01/2016, Additional history exists Pneumococcal vaccine <65 Aged Out 06/15/2020 No longer eligible based on patient's age to complete this topic Procedures Procedure Name Priority Date/Time Associated Diagnosis Comments COLONOSCOPY 11/19/2010 12:00 AM CDT from Last 3 Months or Most Recently Relevant to Health Maintenance Results * COLONOSCOPY (11/19/2010 12:00 AM CDT) Anatomical Region Laterality Modality Other Narrative 11/19/2010 12:00 AM CDT Ordered by an unspecified provider. Procedure Note Provider, MD Quinton - 11/19/2010 12:00 AM CDT PROCEDURE REPORT Patient: CHELA WAGNER Account: [id number] Room No: : 1975 Patient Type: [facility] Attend.: Adonay Sánchez M.D. Admit Date: 11/19/2010 Dict.: Adonay Sánchez M.D. Disch. Date: NAME OF PROCEDURE: Colonoscopy. DATE OF PROCEDURE: November 19, 2010. HISTORY: This is a 35-year old male with blood in the stool. PHYSICAL EXAMINATION: Well developed male. Lungs are clear.Cardiovascular examination is unremarkable. PROCEDURE: Colonoscopy was performed with the PowerReviews video endoscope.The patient was premedicated by Anesthesia. On digital examination, no abnormalities were palpable. We inserted the endoscope and advanced itto the cecum. The colon was well prepped and visualized. We do note that hehas some very early diverticula in the sigmoid but again no evidence of inflammatory or neoplastic change anywhere through the length of thebowel. The patient tolerated the procedure without difficulty. POSTOPERATIVE DIAGNOSIS: Early diverticulosis, otherwise normal. Adonay Sánchez M.D. DR/dp TD: 11/19/2010 12:08 CC: Jaren Sosa M.D. PROCEDURE REPORT Authenticated by Adonay Sánchez MD On 11/22/2010 08:04:02 AM us Historical Provider ENDOSCOPY PROCEDURES Kelsi l Result from Last 3 Months or Most Recently Relevant to Health Maintenance Insurance BLUE [facility]UE [facility] ID[facility] Care Teams Trimming Caser Relationship Specialty Start Date End Date Jaren Sosa MD PCP - General 07/09/15
--- OUTSIDE RECORDS SUMMARY | 2024-12-27 08:06 | XMS_ITS | Clinical Summary ---
Author Organization [facility] Address [address] [place] [address] Care Team Providers Care Streetcar Motorman Name Role Phone Unavailable Primary Care Provider Unavailabl e Social History Tobacco Use Types Packs/Day Years Used Date Smoking Tobacco: Never Assessed Sex and Gender Information Value Date Recorded Sex Assigned at Not on file Legal Sex Male 9:04 PM CDT Gender Identity Not on file Sexual Orientation Not on file Plan of Treatment Health Maintenance Due Date Last Done Comments Colorectal Cancer Screening Colonoscopy (10 Years) 1975 Annual Physical 1980 Hepatitis C 09/19/1995 DTaP, Tdap and Td Vaccines ( 1 - Tdap) 1996 Hepatitis B Vaccines (1 of 3 - 19+ 3-dose series) 1996 COVID-19 Vaccine ( - 2023-2 5 season) 2024 Meningococcal B Vaccine Aged Out No l onger eligible based on patient's age to complete this topic Meningococcal Vaccine Aged Out No ashkan gabriela eligible based on patient's age to complete this topic Pneumococcal Vaccine: Pediat rics (0 to 5 Years) and At-Risk Patients (6 to 49 Years) Aged Out No longer eligible b ased on patient's age to complete this topic RSV Immunizations Under 20 Months Aged Out No longer eligible based on patient's age to complete this topic
--- OUTSIDE RECORDS SUMMARY | 2024-12-27 08:06 | XMS_ITS | Data Portability ---
Author Organization [facility] Address [address] [place] [address] Care Team Providers Care Silk Conditioner Name Role Phone LOTTIE SCHMITZ Primary Care Provider [phone] Assessment No assessment recorded. Plan of Treatment Reminders Order Date Submit Date Provider Last Modified By Organization Details Last Modified Time Details Appointments None recorded . Lab TSH, ultra-se nsitive, serum 2024 025 DAHIANA Haeny, [address], [address], [place], [address], 5 16:41:11 CMP, serum or plasma 2024 025 DAHIANA Haney, [address], [address], [place], [address], 5 16:41:09 lipid panel, serum 2024 025 DAHIANA Haney, [address], [address], [place], [address], 5 16:41:10 CBC 2024 025 DAHIANA Haney, [address], [address], [place], [address], 5 16:41:11 vitamin D, 25-hydro xy, total, serum 2024 025 DAHIANA LABLORIE, [address] [place] [address] 2, [place], [address], 5 16:41:08 TSH, ultra-se nsitive, serum 2023 024 [facility], [address], [address], [place], [address], 4 14:13:12 CMP, serum or plasma 2023 024 [facility], [address], [address], [place], [address], 4 14:13:11 lipid panel, serum 2023 024 [facility], [address], [address], [place], [address], 4 14:13:11 CBC 2023 024 [facility], [address], [address], [place], [address], 4 14:13:14 vitamin D, 25-hydro xy, total, serum [address] [facility], [address] [place] [address] 2, [place], [address], 4 14:13:16 noninvas miracle colorect al cancer DNA + occult blood screenin g, QL, stool 2023 024 KAILUA KONA [employer] (Cologuard Orders Only), [address], [address], [place], [address], 5 05:32:22 C reactive protein, QN, serum or plasma [address] [facility], [address] [facility] [address], [place], [address], 4 14:13:16 ANDRÉS (antinuc lear antibodi es) screen, serum 2023 024 DAHIANA [facility], [address] [facility], [address], [place], [address], 4 14:13:10 erythroc yte sediment ation rate by zulemaergr en method 2023 024 [facility], [address] [facility], [facility] 2, [place], [address], 4 14:13:15 uric acid, serum or plasma 2023 024 DAHIANA [facility], [address] [facility], [facility] [address], [place], [address], 4 14:13:13 rf (rheumat oid factor) + anti-ccp abs, serum 2023 024 KAILUA KONA [facility], [address] [facility], [facility] 2, [place], [address], 4 14:13:09 Referral physical therapis t referral 2023 024 [facility] [place], [address], [place], [address], 5 11:30:[address] referral 2023 024 joseph Garcia DPM, [address] [facility], [place], [address], 5 11:30:19 Procedures None recorded . Surgeries None recorded . Imaging XR, shoulder , 2 or more view 2023 024 KAILUA KONA [facility]adal[facility] Christianson Scheduling, [address], [place], [address], 4 16:47:39 Medication Orders sertrali ne 100 mg tablet 2024 025 KAILUA KONA [facility]69, [address], [place], [place], [id number], 5 16:40:02 diclofen ac sodium 75 mg tablet,d elayed release 2024 025 [facility] #55076, [address], [place], [place], [id number], 5 16:40:00 monteluk ast 10 mg tablet 2024 025 [facility] #80566, [address], [place], [place], [id number], 5 16:40:04 Airsupra 90 mcg-80 mcg/actu ation HFA aerosol inhaler 2024 025 [facility] #40963, [address], [place], [place], [id number], 5 16:42:22 sertrali ne 100 mg tablet 2023 024 [facility] #04132, [address], [place], [place], [id number], 4 11:59:12 diclofen ac sodium 75 mg tablet,d elayed release 2023 024 [facility] #43693, [address], [place], [place], [id number], 4 11:58:19 monteluk ast 10 mg tablet 2023 024 [facility] #42346, [address], [place], [place], [id number], 4 11:58:18 diclofen ac sodium 75 mg tablet,d elayed release 2023 024 [facility] #71296, [address], [place], [place], [id number], 4 09:10:05 monteluk ast 10 mg tablet [address] [facility] #57188, [address], [place], [place], [id number], 4 16:16:56 Voltaren Arthriti s Pain 1 % topical gel 2022 023 [facility] #04969, [address], [place], [place], [id number], 4 08:43:49 diclofen ac sodium 75 mg tablet,d elayed release 2022 023 [facility] #97493, [address], [place], [place], [id number], 3 15:08:37 Voltaren Arthriti s Pain 1 % topical gel 2022 023 [facility] #07934, [address], [place], [place], [id number], 4 08:43:49 diclofen ac sodium 75 mg tablet,d elayed release 2022 023 [facility] #48036, [address], [place], [place], [id number], 3 12:09:10 monteluk ast 10 mg tablet 2022 023 [facility] #[id number], [address] [facility], [place], [address], 3 12:06:13 Patient TargetsNo targets recorded. Patient Instructions Encounter Date Encounter Id Patient Instructions Last Modified By Organization Details Last Modified Time 11/03/2022 [id number] gastroesophageal reflux disease (GERD): care instructions Not available 11/03/2022 12:06:11 When You Want to Lose Weight: Care Instructions Not available 11/03/2022 12:06:11 learning about vitamin D Not available 11/03/2022 12:08:19 anxiety disorder : care instructions Not available 11/03/2022 12:06:11 Continue all medications as prescribed. Not available 11/03/2022 12:05:45 f/u 6 months DWP barriers to care: none Not available 11/03/2022 12:05:06 06/06/2023 [id number] gastroesophageal reflux disease (GERD): care instructions Not available 06/06/2023 15:08:26 shoulder pain: c are instructions Not available 06/06/2023 18:24:39 When You Want to Lose Weight: Care Instructions Not available 06/06/2023 15:08:26 learning about vitamin D Not available 06/06/2023 15:08:26 anxiety disorder : care instructions Not available 06/06/2023 15:08:26 attention defici t hyperactivity disorder (ADHD) in adults: care instructions Not available 06/06/2023 15:08:26 Continue all medications as prescribed. Not available 06/06/2023 15:04:29 f/u 6 months DWP barriers to care: none Not available 06/06/2023 15:04:30 11/23/2023 [id number] gastroesophageal reflux disease (GERD): care instructions Not available 11/23/2023 09:09:56 shoulder pain: c are instructions Not available 11/23/2023 09:09:56 When You Want to Lose Weight: Care Instructions Not available 11/23/2023 09:09:57 learning about vitamin D Not available 11/23/2023 09:09:56 anxiety disorder : care instructions Not available 11/23/2023 09:09:56 Continue all medications as prescribed. Not available 11/23/2023 09:02:30 f/u 6 months DWP barriers to care: none Not available 11/23/2023 09:06:47 06/04/2024 [id number] gastroesophageal reflux disease (GERD): care instructions Not available 06/04/2024 11:58:11 shoulder pain: c are instructions Not available 06/04/2024 11:58:11 When You Want to Lose Weight: Care Instructions Not available 06/04/2024 11:58:11 learning about vitamin D Not available 06/04/2024 11:58:11 anxiety disorder : care instructions Not available 06/04/2024 11:58:11 Continue all medications as prescribed. Not available 06/04/2024 11:43:48 f/u 6 months DWP barriers to care: none Not available 06/04/2024 11:43:49 12/09/2024 [id number] gastroesophageal reflux disease (GERD): care instructions Not available 12/09/2024 16:39:45 A healthy lifest yle: care instructions Not available 12/09/2024 16:41:15 A healthy lifest yle: care instructions Not available 12/09/2024 16:41:23 learning about vitamin D Not available 12/09/2024 16:39:45 anxiety disorder : care instructions Not available 12/09/2024 16:39:45 Continue all medications as prescribed. Not available 12/09/2024 16:31:43 f/u 6 months DWP barriers to care: none Not available 12/09/2024 16:31:44 Reason for Referral Dust Collector Ore Crushing Referral for Plan tar fasciitis of left foot Referring Physician: [facility], Encounter Date: 06/04/2024 Physical Therapist Referral for Pain of left shoulder joint Referring Physician: [facility], Encounter Date: 06/04/2024 Results Created Date Observation Date Name Description Value Unit Range Abnormal Flag Note LastModifiedBy Organization Detail LastModifiedTime 11/23/19 25 11/22/2024 COLOG UARD cologuard result Cancel led - Order d not applic able Not Available [facility] (Cologuard Orders Only) [address], [place], [address], 11/22/2024 05:32:21 11/23/19 24 11/24/2023 RHEUM ATOID ARTHR ITIS PROFI LE rheumatoid factor (rf) <10.0 Not Available [facility] ([facility]) [address] [place], [address], 11/24/2023 14:13:09 11/23/19 24 11/24/2023 RHEUM ATOID ARTHR ITIS PROFI LE anti-ccp Ab, IgG/IgA 2 units 0-19 Negat miracle <20 Weak posit miracle 20 - 39 Moder ate posit miracle 40 - 59 Stron g posit miracle >59 Not Available [facility] ([facility]) [address] [place], [address], 11/24/2023 14:13:09 11/23/19 24 11/24/2023 ANTIN UCLEA R AB MULTI PLEX RFX 9 ANDRÉS direct NEGATI VE negati ve Not Available [facility] ([facility]) [address] [place], [address], 11/24/2023 14:13:10 11/23/19 24 11/24/2023 LIPID PANEL cholesterol, total 186 mg/dL 100-19 9 Not Available [facility] ([facility]) [address] [place], [address], 11/24/2023 14:13:11 11/23/19 24 11/24/2023 LIPID PANEL triglyceride s 124 mg/dL 0-149 Not Available [facility] ([facility]) [address] [place], [address], 11/24/2023 14:13:11 11/23/19 24 11/24/2023 LIPID PANEL HDL cholesterol 44 mg/dL >39 Not Available [facility] ([facility]) [address] [place], [address], 11/24/2023 14:13:11 11/23/19 24 11/24/2023 LIPID PANEL VLDL cholesterol kristine 22 mg/dL 5-40 Not Available [facility] ([facility]) [address], [place], [address], 11/24/2023 14:13:11 11/23/19 24 11/24/2023 LIPID PANEL LDL chol calc ([facility]) 120 mg/dL 0-99 above high normal Not Available [facility] ([facility]) [address], [place], [address], 11/24/2023 14:13:11 11/23/19 24 11/24/2023 COMP. METAB OLIC PANEL (14) glucose 84 mg/dL 70-99 Not Available [facility] ([facility]) [address] [place], [address], 11/24/2023 14:13:11 11/23/19 24 11/24/2023 COMP. METAB OLIC PANEL (14) BUN 18 mg/dL 6-24 Not Available [facility] ([facility]) [address] [place], [address], 11/24/2023 14:13:11 11/23/19 24 11/24/2023 COMP. METAB OLIC PANEL (14) creatinine 1.09 mg/dL 0.76-1 .27 Not Available [facility] ([facility]) [address] [place], [address], 11/24/2023 14:13:11 11/23/19 24 11/24/2023 COMP. METAB OLIC PANEL (14) eGFR 85 mL/mi n/1.7 3 >59 Not Available [facility] ([facility]) [address] [place], [address], 11/24/2023 14:13:11 11/23/19 24 11/24/2023 COMP. METAB OLIC PANEL (14) BUN/creatini ne ratio 17 9-20 Not Available [facility] ([facility]) [address] [place], [address], 11/24/2023 14:13:11 11/23/19 24 11/24/2023 COMP. METAB OLIC PANEL (14) sodium 140 mmol/ L 134-14 4 Not Available [facility] ([facility]) [address] [place], [address], 11/24/2023 14:13:11 11/23/19 24 11/24/2023 COMP. METAB OLIC PANEL (14) potassium 4.7 mmol/ L 3.5-5. 2 Not Available [facility] ([facility]) [address], [place], [address], 11/24/2023 14:13:11 11/23/19 24 11/24/2023 COMP. METAB OLIC PANEL (14) chloride 103 mmol/ L 96-106 Not Available [facility] ([facility]) [address] [place], [address], 11/24/2023 14:13:11 11/23/19 24 11/24/2023 COMP. METAB OLIC PANEL (14) carbon dioxide, total 25 mmol/ L 20-29 Not Available [facility] ([facility]) [address] [place], [address], 11/24/2023 14:13:11 11/23/19 24 11/24/2023 COMP. METAB OLIC PANEL (14) calcium 9.1 mg/dL 8.7-10 .2 Not Available [facility] ([facility]) [address] [place], [address], 11/24/2023 14:13:11 11/23/19 24 11/24/2023 COMP. METAB OLIC PANEL (14) protein, total 6.4 g/dL 6.0-8. 5 Not Available [facility] ([facility]) [address] [place], [address], 11/24/2023 14:13:11 11/23/19 24 11/24/2023 COMP. METAB OLIC PANEL (14) albumin 4.0 g/dL 4.1-5. 1 below low normal Not Available [facility] ([facility]) [address] [place], [address], 11/24/2023 14:13:11 11/23/19 24 11/24/2023 COMP. METAB OLIC PANEL (14) globulin, total 2.4 g/dL 1.5-4. 5 Not Available [facility] ([facility]) [address] [place], [address], 11/24/2023 14:13:11 11/23/19 24 11/24/2023 COMP. METAB OLIC PANEL (14) A/G ratio 1.7 Not Available [facility] ([facility]) [address] [place], [address], 11/24/2023 14:13:11 11/23/19 24 11/24/2023 COMP. METAB OLIC PANEL (14) bilirubin, total 0.6 mg/dL 0.0-1. 2 Not Available [facility] ([facility]) [address] [place], [address], 11/24/2023 14:13:11 11/23/19 24 11/24/2023 COMP. METAB OLIC PANEL (14) alkaline phosphatase 66 IU/L 44-121 Not Available [facility] ([facility]) [address] [place], [address], 11/24/2023 14:13:11 11/23/19 24 11/24/2023 COMP. METAB OLIC PANEL (14) AST (SGOT) 21 IU/L 0-40 Not Available [facility] ([facility]) [address] [place], [address], 11/24/2023 14:13:11 11/23/19 24 11/24/2023 COMP. METAB OLIC PANEL (14) ALT (SGPT) 32 IU/L 0-44 Not Available [facility] ([facility]) [address] [place], [address], 11/24/2023 14:13:11 11/23/19 24 11/24/2023 TSH RFX ON ABNOR MAL TO FREE T4 TSH 1.300 uIU/m L 0.450- 4.500 Not Available [facility] ([facility]) [address] [place], [address], 11/24/2023 14:13:12 11/23/19 24 11/24/2023 URIC ACID uric acid 5.4 mg/dL 3.8-8. 4 Thera yakovi c rosangela t for gout patie nts: <6.0 Not Available [facility] ([facility]) [address] [place], [address], 11/24/2023 14:13:13 11/23/19 24 11/24/2023 CBC, NO DIFFE RENTI AL/PL ATELE T WBC 7.3 x10e3 /uL 3.4-10 .8 Not Available [facility] ([facility]) [address] [place], [address], 11/24/2023 14:13:14 11/23/19 24 11/24/2023 CBC, NO DIFFE RENTI AL/PL ATELE T RBC 4.90 x10e6 /uL 4.14-5 .80 Not Available [facility] ([facility]) [address] [place], [address], 11/24/2023 14:13:14 11/23/19 24 11/24/2023 CBC, NO DIFFE RENTI AL/PL ATELE T hemoglobin 15.4 g/dL 13.0-1 7.7 Not Available [facility] ([facility]) [address], [place], [address], 11/24/2023 14:13:14 11/23/1911/24/2023 CBC, NO DIFFE RENTI AL/PL ATELE T hematocrit 46.2 % 37.5-5 1.0 Not Available [facility] ([facility]) [address], [place], [address], 11/24/2023 14:13:14 11/23/1911/24/2023 CBC, NO DIFFE RENTI AL/PL ATELE T MCV 94 fL 79-97 Not Available [facility] ([facility]) [address], [place], [address], 11/24/2023 14:13:14 11/23/19 24 11/24/2023 CBC, NO DIFFE RENTI AL/PL ATELE T MCH 31.4 pg 26.6-3 3.0 Not Available [facility] ([facility]) [address] [place], [address], 11/24/2023 14:13:14 11/23/1911/24/2023 CBC, NO DIFFE RENTI AL/PL ATELE T MCHC 33.3 g/dL 31.5-3 5.7 Not Available [facility] ([facility]) [address] [place], [address], 11/24/2023 14:13:14 11/23/1911/24/2023 CBC, NO DIFFE RENTI AL/PL ATELE T RDW 12.4 % 11.6-1 5.4 Not Available [facility] ([facility]) [address] [place], [address], 11/24/2023 14:13:14 11/23/1911/24/2023 CBC, NO DIFFE RENTI AL/PL ATELE T NRBC - Eff ectiv e January 08, 2024, deric reddy 669[address] 7 CBC, No Diffe renti al, No Plate let will be made non-o rdera ble. Lab[facility] rp Offer s: 25016 9 CBC With Diffe renti al/Pl atele t 47474 2 CBC, Plate let, No Diffe renti al Not Available [facility] ([facility]) [address], [place], [address], 11/24/2023 14:13:14 11/23/19 24 11/24/2023 SEDIM ENTAT ION RATE- WESTE RGREN sedimentatio n rate-westerg sushil 2 mm/HR 0-15 Not Available [facility] ([facility]) [address], [place], [address], 11/24/2023 14:13:15 11/23/19 24 11/24/2023 C-HAJA CTIVE PROTE IN, QUANT C-reactive protein, quant 2 mg/L 0-10 Not Available [facility] ([facility]) [address], [place], [address], 11/24/2023 14:13:16 11/23/19 24 11/24/2023 VITAM IN D, 25-HY DROXY vitamin D, 25-hydroxy 22.9 NG/mL 30.0-1 00.0 below low normal Vitam in D defic iency has been defin ed by the Insti tute of Medic ine and an Endoc rine Socie ty pract ice guide line as a level of serum 25-OH vitam in D less than 20 ng/mL (1,2) . The Endoc rine Socie ty went on to furth er defin e vitam in D insuf ficie ncy as a level betwe en 21 and 29 ng/mL (2). 1. IOM (Inst itute of Medic ine). 2009. Dieta ry refer ence intpriscilla es for calci um and D. Rebekah torres [place]: The Natio nal [facility] Press . 2. Cody rios MF, Binkl ey [place], Bismaribel off-F errar i WEAVER, et al. Evalu ation , treat ment, and preve ntion of vitam in D defic iency : an Endoc rine Socie ty clini kristine pract ice guide line. JCEM. 2010; 96(7) :1911 -30. Not Available [facility] ([facility]) [address], [place], [address], 11/24/2023 14:13:16 12/26/19 24 12/26/2023 XR, shoul kellen, 2 or more view No observ ation record ed. [facility] [address] [facility], [place], [address], 01/03/2024 17:20:51 Result Notes None recorded. Problems Name Problem SNOMED Code Status Onset Date Resolution Date Notes Provider Name and Address Organization Details Recorded Time Generalized anxiety disorder 09198777 Active 2020 Lottie Schmitz APN, FNP-C Attn: Candi sarmiento,[address] [place], [place], [address] [place] [address] 2, [facility] 1 11:43:30 Gastro-esop hageal reflux disease with esophagitis 017475591 Active 2020 Lottie Schmitz APN, FNP-C Attn: Candi sarmiento,[address] [place], [place], [address] [place] [address] 2, [facility] 1 11:45:16 Reactive airway disease 684582942531 Active 2020 Lottie Schmitz APN, FNP-Karan Attn: Candi sarmiento,[address] [place], [address], [facility] 1 11:48:35 Environment al allergy 729962345 Active 2020 Lottie Schmitz APN, FNP-C Attn: Candi sarmiento,[address] [place], [address], [facility] 1 11:50:11 Depression screening Active 2020 Lottie Schmitz APN, FNP-C Attn: Candi sarmiento,[address] [place], [address], [place] [facility] 1 11:50:13 Wheezing 22428764 Active 2020 Lottie Schmitz QUANTITATIVE RESEARCH ANALYST, ADMINISTRATIVE ASSOCIATE-C Attn: Haileyissa sarmiento,[address] [facility], [place], [address], [place] [facility] 1 17:25:00 Obesity 483306708 Active 2021 Lottie Schmitz APN, ADMINISTRATIVE ASSOCIATE-C Attn: Haileyissa sarmiento,[address] [facility], [place], [address], [place] [facility] 2 15:03:32 Plantar fasciitis of left foot [id number] 9101 Active 2021 Lottie Schmitz APN, ADMINISTRATIVE ASSOCIATE-C Attn: Candi guillermina,[address] [facility], [place], [address], [place] [facility] 2 15:04:21 Vitamin D deficiency 82735164 Active 2022 Lottie Schmitz APN, ADMINISTRATIVE ASSOCIATE-C Attn: Candi guillermina,[address] [facility], [place], [address], [place] [facility] 3 12:08:06 Depressive disorder 21988700 Active 2023 Lottie Schmitz QUANTITATIVE RESEARCH ANALYST, ADMINISTRATIVE ASSOCIATE-C Attn: Candi guillermina,[address] [facility], [place], [address], [place] [facility] 4 13:15:16 Pain of multiple joints 95490781 Active 2023 Lottie Schmitz QUANTITATIVE RESEARCH ANALYST, ADMINISTRATIVE ASSOCIATE-C Attn: Candi guillermina,[address] [facility], [place], [address], [place] [facility] 4 09:04:18 Pain of left shoulder joint [id number] 9109 Active 2023 Lottie Schmitz QUANTITATIVE RESEARCH ANALYST, ADMINISTRATIVE ASSOCIATE-C Attn: Candi guillermina,[address] [facility], [place], [address], [place] - [facility] 4 09:04:19 Problem Notes Documentation Provider Name and Address Organization Details Recorded Time Behavioral Health Consult Note : This document (1 ) was received from [email or web address] [address] [email or web address] on 09/27/2024 through Direct Message along with the following message body content: Patient Name: CHELA WAGNER. Patient : 1975. Patient . Lindy shen [facility] 09/30/2024 10:00:49 Procedures Surgical History Date Name Laterality Status Provider Name and Address Organization Details Recorded Time Back Surgery completed Teresa Hernandez MA [facility] 12/02/2020 11:21:12 manipulation of displaced nasal septum completed Teresa Hernandez MA [facility] 12/02/2020 11:21:26 Imaging Results None recorded. Procedure Notes None recorded. Medical Equipment None Reported. Allergies No known drug allergies Medications Name Sig Start Date Stop Date Status Note LastModified by Organization Details LastModified Time quetiapin e 25 mg tablet TAKE 1 TABLET BY MOUTH TWICE DAILY NEEDED 01/18 completed Not Available Not Available Not Available amoxicill in 500 mg capsule TAKE 1 CAPSULE BY MOUTH EVERY 8 HOURS UNTIL ALL TAKEN 06/04 completed Not Available Not Available Not Available venlafaxi ne ER 37.5 mg capsule,e xtended release 24 hr TAKE 1 CAPSULE BY MOUTH EVERY DAY 12/02 completed Not Available Not Available Not Available prednison e 10 mg tablet TAKE 4 A DAY IN THE AM WITH FOOD X3 DAYS, 3/ DAY X3 DAYS, 2/DAY X3 DAYS, 1/DAY X3 DAYS 12/02 completed Not Available Not Available Not Available ipratropi um 0.5 mg-albute rol 3 mg (2.5 mg base)/3 mL nebulizat ion soln USE 3 ML VIA NEBULIZE R FOUR TIMES DAILY NEEDED active Not Available Not Available No t Available clindamyc in HCl 300 mg capsule TAKE 1 CAPSULE BY MOUTH EVERY 8 HOURS 12/02 completed Not Available Not Available Not Available albuterol sulfate 2.5 mg/3 mL (0.083 %) solution for nebulizat ion USE 1 VIAL VIA NEBULIZE R EVERY 4 HOURS NEEDED FOR WHEEZING OR SHORTNES S OF BREATH OR COUGH active Not Available Not Available No t Available azithromy dontrell 250 mg tablet TAKE 2 TABLETS BY MOUTH TODAY, THEN TAKE 1 TABLET DAILY FOR 4 DAYS 08/16 completed Not Available Not Available Not Available ibuprofen 800 mg tablet TAKE 1 TABLET BY MOUTH THREE TIMES DAILY NEEDED FOR SEVERE PAIN 11/03 completed Not Available Not Available Not Available hydrocodo ne 5 mg-acetam inophen 325 mg tablet TAKE 1 TABLET BY MOUTH EVERY 4 TO 6 HOURS NEEDED FOR PAIN 11/03 completed Not Available Not Available Not Available ondansetr on HCl 4 mg tablet TAKE 1 TABLET BY MOUTH EVERY 8 HOURS NEEDED FOR NAUSEA 1ST LINE. 12/02 completed Not Available Not Available Not Available prednison e 20 mg tablet TAKE 1 TABLET BY MOUTH TWICE DAILY 12/02 completed Not Available Not Available Not Available clonazepa m 0.5 mg tablet TAKE 1 TABLET BY MOUTH EVERY DAY NEEDED 06/06 completed Not Available Not Available Not Available sertralin e 100 mg tablet Take 1 tablet every day by oral route. 2024 active Not Available Not Available Not Avai lable acetamino phen 300 mg-codein e 30 mg tablet TAKE 1 TABLET BY MOUTH EVERY 6 HOURS NEEDED FOR PAIN 06/04 completed Not Available Not Available Not Available ciproflox acin 500 mg tablet TAKE 1 TABLET BY MOUTH TWICE A DAY FOR 10 DAYS 12/02 completed Not Available Not Available Not Available hydrocodo ne 10 mg-acetam inophen 325 mg tablet TAKE 1 TABLET BY MOUTH EVERY 6 HOURS NEEDED FOR SEVERE PAIN 07/01 completed Not Available Not Available Not Available tramadol 50 mg tablet TAKE 1 TABLET BY MOUTH EVERY 8 HOURS NEEDED FOR MODERATE TO SEVERE PAIN 10/18 completed Not Available Not Available Not Available alprazola m 0.5 mg tablet TAKE 1 TABLET BY MOUTH THREE TIMES A DAY NEEDED FOR ANXIETY 12/02 completed Not Available Not Available Not Available famotidin e 20 mg tablet TAKE 1 TABLET BY MOUTH TWICE A DAY 12/02 completed Not Available Not Available Not Available tamsulosi n 0.4 mg capsule TAKE 1 CAPSULE BY MOUTH EVERY DAY 06/04 completed Not Available Not Available Not Available benzonata te 100 mg capsule TAKE 1 CAPSULE BY MOUTH THREE TIMES DAILY NEEDED FOR COUGH 08/16 completed Not Available Not Available Not Available cephalexi n 500 mg capsule TAKE 1 CAPSULE BY MOUTH EVERY 6 HOURS FOR 10 DAYS 02/26 completed Not Available Not Available Not Available sertralin e 25 mg tablet TAKE 1 TABLET BY MOUTH DAILY FOR 7 DAYS THEN TAKE 2 TABLETS BY MOUTH DAILY FOR 7 DAYS 01/18 completed Not Available Not Available Not Available omeprazol e 20 mg capsule,d elayed release 01/18 completed Not Available Not Available Not Available Banophen 25 mg capsule TAKE 1 CAPSULE BY MOUTH 3 TIMES A DAY NEEDED ALLERGY SYMPTOMS 12/02 completed Not Available Not Available Not Available diclofena c sodium 75 mg tablet,de layed release TAKE 1 TABLET BY MOUTH TWICE DAILY 2024 active Not Available Not Available Not Avai lable mont[place] [facility] 10 mg tablet TAKE 1 TABLET BY MOUTH DAILY 2024 active Not Available Not Available Not Avai lable methylpre dnisolone 4 mg tablets in a dose pack FOLLOW PACKAGE DIRECTIO NS 08/16 completed Not Available Not Available Not Available albuterol sulfate HFA 90 mcg/actua tion aerosol inhaler INHALE 2 PUFFS BY MOUTH EVERY 4 HOURS NEEDED FOR WHEEZING OR COUGH active Not Available Not Available No t Available hydroxyzi ne HCl 10 mg tablet TAKE 1 TABLET BY MOUTH EVERY 8 HOURS FOR PANIC ATTACKS 01/18 completed Not Available Not Available Not Available ondansetr on 4 mg disintegr ating tablet TAKE 1 TABLET BY MOUTH EVERY 8 HOURS NEEDED FOR NAUSEA - 3RD LINE. 06/04 completed Not Available Not Available Not Available naproxen 500 mg tablet TAKE 1 TAB BY MOUTH 2 TIMES DAILY NEEDED FOR MILD OR MORE SEVERE PAIN. 12/02 completed Not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 changes; Pt states he is having trouble with his left shoulder. He says it just constantly hurts and when moving does pop. Denies any trouble with mobility and lifting. Lottie Schmitz APN, FNP-C Attn: Accounting,[address] [facility], [place], [address], [facility] 06/06/2023 18:25:42 11/23/2023 text/html here for follow up, was seeing psych and BH and is doing better with med changes; cannot see provider until new insurance kicks in; breathing good now, avoids allergens with mask and that helps a lot podiatry gave shot and that was helping foot pain, needs refill of diclofenac- cannot go back to see them until his insurance changes; Pt states he is having trouble with his left shoulder. He says it just constantly hurts and when moving does pop. Denies any trouble with mobility and lifting. faimly hx of RA- multple joint pains: wrists, knees, fingers, elbows, shoulders Lottie Schmitz APN, ADMINISTRATIVE ASSOCIATE-C Attn: Accounting,[address] [place], [address], [facility] 11/23/2023 09:14:08 06/04/2024 text/html pt would like podiatry referral again.still having pain in left shoulder- was told its arthritis and waiting until next year to do PT Lottie Schmitz APN, ADMINISTRATIVE ASSOCIATE-C Attn: Accounting,[address] [facility], [place], [address], [facility] 06/04/2024 12:01:32 12/09/2024 text/html here for annual exam,no complaints, needs meds refilled Lottie Schmitz APN, ADMINISTRATIVE ASSOCIATE-C Attn: Accounting,[address] [facility], [place], [address], [facility] 12/09/2024 16:47:43
--- OUTSIDE RECORDS SUMMARY | 2024-12-27 08:06 | XMS_ITS | Encounter Summary ---
Author Organization [facility] Address [address] [place] [address] Phone Care Team Providers Care Certified First Assistant Name Role Phone Pollo Jones Primary Care Provider U navailable Provider, None Primary Care Provider Unavailabl Lottie Soni APRN, CHASER APPRENTICE Primary Care Provider [phone] Denzel Cuellar MD Unavailable [phone] Reason for Visit * Reason Comments Medication Refill Encounter Details Date Type Department Care Team (Late st Contact Info) Description 08/06/2020 Refill [facility] - Primary Care - [place] [address] [place] [address] Pollo Jones, [place] Medication Refill Social History Tobacco Use Types Packs/Day Years Used Date Smoking Tobacco: Former Cigarettes 0.3 15 1 07/11/2001 - 05/11/2017 Smokeless Tobacco: Never Alcohol Use Standard Drinks/Week Comments Not Currently 0 (1 standard drink = 0.6 oz pur e alcohol) Sex and Gender Information Value Date Recorded Sex Assigned at Not on file Legal Sex Male 7:07 PM CDT Gender Identity Not on file Sexual Orientation Not on file 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 No / Unsure 08/03/2020 3:31 PM ARRT TECHNOLOGIST documented as of this encounter Plan of Treatment Not on file documented as of this encounter Visit Diagnoses Not on filedocumented in this encounter Additional Health Concerns Infection Onset Date Last Indicated Resolved Time COVID - 19 05/20/2022 05/20/2022 05/30/2022 12:1 6 AM ARRT TECHNOLOGIST documented as of this encounter Care Teams Certified First Assistant Relationship Specialty Start Date End Date Pollo Jones PAC PCP - General Physician Road Engineer 05/11/20 03/23/22 Provider, None [place] PCP - General 03/24/22 05/19/22 Lottie Sawyer APRN, CHASER APPRENTICE [address] [place] [address] PCP - General Family Medicine 05/20/22 Denzel Cuellar MD [address] [place] [address] Consulting Physician Urology 05/24/22 documented as of this encounter
--- OUTSIDE RECORDS SUMMARY | 2024-12-27 08:06 | XMS_ITS | Encounter Summary ---
Author Organization [facility] Address [address] [place] [address] Phone Care Team Providers Care Healthcare Educator Name Role Phone Pollo Jones Primary Care Provider U navailable Provider, None Primary Care Provider Unavailabl Lottie Soni APRN INSPECTOR FABRIC Primary Care Provider [phone] Denzel Cuellar MD Unavailable [phone] Reason for Visit * Reason Comments Medication Refill Encounter Details Date Type Department Care Team (Late st Contact Info) Description 10/17/2020 Refill [facility] - Primary Care - [place] [address] [place] [address] Pollo Jones PAC Medication Refill Social History Tobacco Use Types [...] file Not on file Not on file documented as of this encounter Miscellaneous Notes * Telephone Encounter - Pollo Jones PAC - 10/19/2020 12:33 PM CDT Rx refill approved. * Telephone Encounter - Taty Hopkins RN - 10/19/2020 10:25 AM CDT Medication failed the protocol, provider to review and approve the medication order if appropriate. Requested Prescriptions Pending Prescriptions Disp Refills busPIRone (BUSPAR) 15 MG Tablet [Pharmacy Med Name: BUSPIRONE HCL 15 MG TABLET] 60 Tablet 2 Sig: TAKE 1 TABLET BY MOUTH TWICE A DAY [facility] Not Delegated - Psychiatry: Anxiolytics/Hypnotics Failed - 10/17/2020 10:33 AM Failed - This refill cannot be delegated Passed - Valid encounter within last 6 months Past Office Visits Recent Outpatient Visits 2 months ago Panic disorder without agoraphobia [facility] Pollo Jones PAC 3 months ago SOB (shortness of breath) [facility] Pollo Jones PAC 4 months ago SOB (shortness of breath) [facility] Pollo Jones PAC 5 months ago SOB (shortness of breath) [facility] Pollo Jones PAC 5 years ago Chronic right shoulder pain [facility] Antonio Obrien, DO Upcoming Appointments Future Appointments In 2 weeks Pollo Jones PAC [facility] - Recent and Past Visits Recent Visits Date Type Provider Dept 08/03/20 Office Visit Pollo Jones PAC [facility] 07/02/20 Office Visit Pollo Jones PAC [facility] 06/15/20 Office Visit Pollo Jones PAC [facility] 05/11/20 [facility] Showing recent visits within past 460 days with a meds authorizing provider and meeting all other requirements Future Appointments Date Type Provider Dept 11/02/20 Appointment [facility] Showing future appointments within next 90 days with a meds authorizing provider and meeting all other requirements documented in this encounter Plan of Treatment Not on file documented as of this encounter Visit Diagnoses Not on filedocumented in this encounter Additional Health Concerns Infection Onset Date Last Indicated Resolved Time COVID - 19 05/20/2022 05/20/2022 05/30/2022 12:1 6 AM FISCAL SPECIALIST documented as of this encounter Care Teams Healthcare Educator Relationship Specialty Start Date End Date Pollo Jones PAC PCP - General Physician Crude Oil Treater 05/11/20 03/23/22 Provider, None [place] PCP - General 03/24/22 05/19/22 Lottie Sawyer APRN, INSPECTOR FABRIC [address] [place] [address] PCP - General Family Medicine 05/20/22 Denzel Cuellar MD [address] [place] [address] Consulting Physician Urology 05/24/22 documented as of this encounter
--- OUTSIDE RECORDS SUMMARY | 2024-12-27 08:06 | XMS_ITS | Referral Summary ---
Author Organization [facility] Address [address] [place] [address] Care Team Providers Care Gameplay Engineer Name Role Phone Jaren Sosa MD Primary Care Provider [phone] Allergies No known active allergies Medications ibuprofen [...] Split, Preservative Free, Intramuscular 03/02/2016 Tdap 07/13/2003 Social History Tobacco Use Types Packs/Day Years [...] on file Legal Sex Male 3:43 PM COVERAGE SPECIALIST RN Gender Identity Not on file Sexual Orientation Not on file Last Filed Vital Signs Vital Sign Reading [...] 04/12/2021 3:19 PM CDT Plan of Treatment Not on file Procedures Procedure Name Priority Date/Time Associated Diagnosis Comments COLONOSCOPY 11/19/2010 12:00 AM CDT from Last 3 Months or Most Recently Relevant to Health Maintenance Results * COLONOSCOPY (11/19/2010 12:00 AM CDT) Anatomical Region Laterality Modality Other Narrative 11/19/2010 12:00 AM CDT Ordered by an unspecified provider. Procedure Note Provider, MD Quinton - 11/19/2010 12:00 AM CDT PROCEDURE REPORT Patient: CHELA WAGNER Account: [id number] Room No: : 1975 Patient Type: [facility] Attend.: Adonay Sánchez M.D. Admit Date: 11/19/2010 Dict.: Adonay Sánchez M.D. Disch. Date: NAME OF PROCEDURE: Colonoscopy. DATE OF PROCEDURE: November 19, 2010. HISTORY: This is a 35-year old male with blood in the stool. PHYSICAL EXAMINATION: Well developed male. Lungs are clear.Cardiovascular examination is unremarkable. PROCEDURE: Colonoscopy was performed with the Crimson Hexagon video endoscope.The patient was premedicated by Anesthesia. [...] Early diverticulosis, otherwise normal. Adonay Sánchez M.D. /teresita TD: 11/19/2010 12:08 CC: Jaren Sosa M.D. PROCEDURE REPORT Authenticated by Adonay Sánchez MD On 11/22/2010 08:04:02 AM Historical Provider MD ENDOSCOPY PROCEDURES Kelsi l Result from Last 3 Months or Most Recently Relevant to Health Maintenance Insurance [facility] AETNA [facility] PPO BLUE [facility] Care Teams Gameplay Engineer Relationship Specialty Start Date End Date Jaren Sosa MD PCP - General 07/09/15
--- OUTSIDE RECORDS SUMMARY | 2024-12-27 08:07 | XMS_ITS | Encounter Summary ---
Author Organization [facility] Address [address] [place] [address] Phone Care Team Providers Care Outdoor Education Teacher Name Role Phone Pollo Jones Primary Care Provider U navailable Provider, None Primary Care Provider Unavailabl Lottie Soni APRN, ECHO VASCULAR TECHNOLOGIST Primary Care Provider [phone] Denzel Cuellar MD Unavailable [phone] Reason for Visit * Reason Comments Medication Refill Encounter Details Date Type Department Care Team (Late st Contact Info) Description 07/07/2020 Refill [facility] - Primary Care - [place] [address] [place] [address] Pollo Jones, [place] Medication Refill [...] have Coronavirus / COVID-19? No / Unsure 07/02/2020 11:13 AM ELEMENT WINDING MACHINE TENDER documented as of this encounter Plan of Treatment Not on file documented as of this encounter Visit Diagnoses Not on filedocumented in this encounter Additional Health Concerns Infection Onset Date Last Indicated Resolved Time COVID - 19 05/20/2022 05/20/2022 05/30/2022 12:1 6 AM ELEMENT WINDING MACHINE TENDER documented as of this encounter Care Teams Outdoor Education Teacher Relationship Specialty Start Date End Date Pollo Jones PAC PCP - General Physician Retail Cashier 05/11/20 03/23/22 Provider, None [place] PCP - General 03/24/22 05/19/22 Lottie Sawyer APRN, ECHO VASCULAR TECHNOLOGIST [address] [place] [address] PCP - General Family Medicine 05/20/22 Denzel Cuellar MD [address] [place] [address] Consulting Physician Urology 05/24/22 documented as of this encounter
--- OUTSIDE RECORDS SUMMARY | 2024-12-27 08:07 | XMS_ITS | Encounter Summary ---
Author Organization [facility] Address [address] [place] [address] Phone Care Team Providers Care Registered Nurse Float Pool Name Role Phone Pollo Jones Primary Care Provider U navailable Provider, None Primary Care Provider Unavailabl Lottie Soni APRN, SCREEN PRINTER Primary Care Provider [phone] Denzel Cuellar MD Unavailable [phone] Reason for Visit * Reason Comments Medication Refill Encounter Details Date Type Department Care Team (Late st Contact Info) Description 09/15/2020 Refill [facility] - Primary Care - [place] [address] [place] [address] Pollo Jones, [place] Medication Refill [...] on file documented as of this encounter Plan of Treatment Not on file documented as of this encounter Visit Diagnoses Not on filedocumented in this encounter Additional Health Concerns Infection Onset Date Last Indicated Resolved Time COVID - 19 05/20/2022 05/20/2022 05/30/2022 12:1 6 AM FRONT OFFICE REPRESENTATIVE documented as of this encounter Care Teams Registered Nurse Float Pool Relationship Specialty Start Date End Date Pollo Jones PAC PCP - General Physician Checkout Supervisor 05/11/20 03/23/22 Provider, None [place] PCP - General 03/24/22 05/19/22 Lotite Sawyer APRN, SCREEN PRINTER [address] [place] [address] PCP - General Family Medicine 05/20/22 Denzel Cuellar MD [address] [place] [address] Consulting Physician Urology 05/24/22 documented as of this encounter
--- OUTSIDE RECORDS SUMMARY | 2024-12-27 08:07 | XMS_ITS | Clinical Summary ---
Author Organization [facility] Address [address] [place] [address] Phone Care Team Providers Care Wallpaper Inspector Name Role Phone Silverio, Lottie TAPIA CNP Primary Care Provider [phone] Denzel Cuellar MD Unavailable Allergies No known active allergies Medications ibuprofen (MOTRIN) 800 MG Tablet Take 1 Tab by mouth 3 times daily. 6 6 Active fluticasone (FLONASE) 50 MCG/ACT Suspension 2 Sprays by Nasal route daily. Use in each nostril as directed. 1 Bottle 0 Active cetirizine (ZyrTEC) 10 MG Tablet Take 1 Tab by mouth daily. 90 Tab 3 0 Active Additional Information Patient not taking.Reported on 06/24/2022 Respiratory Therapy Supplies (Nebulizer/Tubi ng/Mouthpiece) Kit 1 Units by Does not apply route every 4 hours as needed for Other. 1 Each 0 Active budesonide-form oterol fumarate (Symbicort) 160-4.5 MCG/ACT Aerosol take 2 Puffs by inhalation 2 times daily. 1 Inhaler 3 1 Active Additional Information Patient not taking.Reported on 06/24/2022 omeprazole (PriLOSEC) 20 MG CAPSULE DELAYED RELEASE Take 1 Cap by mouth daily. 90 Cap 2 1 Active albuterol (PROVENTIL, VENTOLIN) (2.5 MG/3ML) 0.083% Nebulizer SolnIndications :Shortness of breath,Wheezing 3 mL by Nebulization route every 4 hours as needed for Wheezing, Shortness of Breath or Cough. 90 Vial 3 1 Active Spiriva Respimat 1.25 MCG/ACT Aerosol Solution INHALE TWO PUFFS BY MOUTH EVERY 24 HOURS 1 Active montelukast (SINGULAIR) 10 MG Tablet Take 10 mg by mouth daily. 1 Active albuterol 108 (90 Base) MCG/ACT Aerosol Solution take 2 Puffs by inhalation every 4 hours as needed for Wheezing or Cough. 8.5 g 3 1 Active ALPRAZolam (XANAX) 0.5 MG Tablet Take 1 Tablet by mouth 3 times daily as needed for Anxiety. 10 Tablet 1 Active busPIRone (BUSPAR) 15 MG Tablet TAKE 1 TABLET BY MOUTH TWICE A DAY 60 Tablet 2 1 Active Additional Information Patient not taking.Reported on 06/24/2022 traMADol (ULTRAM) 50 MG TabletIndicatio ns:Contusion of jaw, initial encounter Take 1 Tablet by mouth every 8 hours as needed for Moderate or more severe pain. 12 Tablet 2 Active Additional Information Patient not taking.Reported on 06/24/2022 tamsulosin (FLOMAX) 0.4 MG Capsule Take 1 Capsule by mouth daily. 10 Capsule 2 Active ondansetron (ZOFRAN-ODT) 4 MG TABLET DISPERSIBLE Take 1 Tablet by mouth every 8 hours as needed for Nausea - 3rd line. 14 Tablet 2 Active tamsulosin (FLOMAX) 0.4 MG Capsule Take 1 Capsule by mouth daily. 90 Capsule 3 2 Active HYDROcodone-felicitas taminophen (NORCO) 10-325 MG TabletIndicatio ns:Renal stones Take 1 Tablet by mouth every 6 hours as needed for Severe pain. 20 Tablet 3 Active clonazePAM (KlonoPIN) 0.5 MG Tablet TAKE 1 TABLET BY MOUTH EVERY DAY NEEDED 2 Active ipratropium-alb uterol (DUO-NEB) 0.5-2.5 (3) MG/3ML Solution USE 3 ML VIA NEBULIZER FOUR TIMES DAILY NEEDED 2 Active sertraline (ZOLOFT) 100 MG Tablet sertraline 100 mg tablet Active atomoxetine (STRATTERA) 25 MG Capsule 3 Active ondansetron (ZOFRAN-ODT) 4 MG TABLET DISPERSIBLE Take 1 Tablet by mouth every 8 hours as needed for Nausea - 3rd line. 20 Tablet 3 Active ibuprofen (MOTRIN) 800 MG Tablet Take 1 Tablet by mouth 3 times daily as needed for Severe pain. 30 Tablet 3 3 Active Active Problems Problem Noted Date Diagnosed Date Depression 10/15/2015 Chronic midline low back pain without sciatica 0 10/15/2015 GERD (gastroesophageal reflux disease) 6 Panic disorder without agoraphobia 10/15/2015 Immunizations Immunization Administration Dates Next Due Influenza Vaccine 03/01/2016,03/12/2011 Influenza Vaccine, MDCK,quadrivalent, pres free 04/09/2020 Influenza, Trivalent, Adjuvanted, PF 03/02/2016 Pneumococcal Vaccine Adult - 23 Valent 1 Sars-cov-2 (Covid-19) Vaccine, Unspecified 08/17 TDAP Vaccine 07/13/2003 Family History Medical History Relation Name Comments Chronic Lung Disease Father interst itial lung disease Diabetes Father Hypertension Father No Known Problems Maternal Grandfather No Known Problems Maternal Grandmother Diabetes Mother Hypertension Mother Diabetes Paternal Grandfather Hypertension Paternal Grandfather Other-comment Paternal Grandfather heart issue No Known Problems Paternal Grandmother Crohn's Disease Sister Relation Name Status Comments Father Maternal Grandfather Maternal Grandmother Mother Alive Paternal Grandfather Paternal Grandmother Sister Alive Social History Tobacco Use Types Packs/Day Years Used Date Smoking Tobacco: Some Days Cigarettes 0.3 15 Started: 05/11/2002; Last attempted to quit: 05/11/2017 Smokeless Tobacco: Never Tobacco Cessation:Ready to Q uit: Not Asked; Counseling Given: Not Answered Alcohol Use Standard Drinks/Week Comments Yes 0 (1 standard drink = 0.6 oz pur e alcohol) occasional Sexually Active Control Partners Comments Not Currently Sex and Gender Information Value Date Recorded Sex Assigned at Not on file Legal Sex Male 7:07 PM CDT Gender Identity Not on file Sexual Orientation Not on file Occupation Industry Job Start Date Job End Date Stiven Not on file Not on file Not on file Last Filed Vital Signs Vital Sign Reading Time Taken Comments Blood Pressure 136/80 06/24/2022 11:10 AM UNHAIRING MACHINE OPERATOR Pulse 97 07/22/2022 11:09 AM UNHAIRING MACHINE OPERATOR Temperature 36.6 C (97.8 F) 06/24/2022 11:10 AM UNHAIRING MACHINE OPERATOR Respiratory Rate 20 07/22/2022 11:09 AM UNHAIRING MACHINE OPERATOR Oxygen Saturation 97% 07/22/2022 11:09 AM UNHAIRING MACHINE OPERATOR Inhaled Oxygen Concentration - - Weight 104.8 kg (231 lb) 07/22/2022 11:09 AM UNHAIRING MACHINE OPERATOR Height 170.2 cm (5' 7) 07/22/2022 11:09 AM UNHAIRING MACHINE OPERATOR Body Mass Index 36.18 07/22/2022 11:09 AM UNHAIRING MACHINE OPERATOR Plan of Treatment Health Maintenance Due Date Last Done Comments Hepatitis C Virus (HCV) Screening 1975 Hepatitis B Immunization (1 of 3 - 19+ 3-dose series) 1996 Td Immunization Every 10 Years (Adults With 1 Tdap) 07/13/2013 07/13/2003 Cologuard 2022 Colonoscopy 2022 Colorectal Cancer Screening 2022 Immunochemical Fecal Occult Blood 2022 SARS-COV-2 Immunization ( season) 2024 11/03/2022, 08/17/2020 Influenza Immunization (#1) 02/10/202504/12, 04/09/2020, 03/02/2016, Additional history exists Respiratory Syncytial Virus (RSV) Immunization (Adult) (1 - 1-dose 75+ series) 2052 Pneumococcal Immunization Combined Aged Out 06/15/2020 No longer eligible based on patient's age to complete this topic Human Papillomavirus (HPV) Immunization Aged Out No longer eligible based on patient's age to complete this topic Meningococcal Immunization (ACWY) Aged Out No longer eligible based on patient's age to complete this topic Rotavirus Immunization Aged Out No lo nger eligible based on patient's age to complete this topic Insurance [facility] Care Teams Wallpaper Inspector Relationship Specialty Start Date End Date Lottie Sawyer APRN, SUMMER SESSIONS DIRECTOR [address] [facility] [address] [place] [address] PCP - General Family Medicine 05/20/22 Denzel Cuellar MD #[address] [address] Consulting Physician Urology 05/24/22
--- OUTSIDE RECORDS SUMMARY | 2024-12-27 08:07 | XMS_ITS | Clinical Summary ---
Author Organization [facility] Address [address] [place] [address] Care Team Providers Care Town Manager Name Role Phone Unavailable Primary Care Provider Unavailabl e Source Comments [facility],non-owned Affiliates and Associated Physician Practices is amultiple site organization consisting of ambulatory clinics and hospital sitesin [place], [place], [place] and [place]. This disclosure is being madepursuant to the Care Everywhere program and may not contain all information available regarding this patient. Last updated 18.[facility] flaveit Allergies No known active allergies Medications * Be aware that medications may not be up to date on this document. Alwaysverify current medications with the patient. omeprazole (PRILOSEC) 20 MG capsule Take 20 mg by mouth daily before breakfast Active ALBUTEROL IN Active budesonide-form oterol (SYMBICORT) 160-4.5 MCG/ACT inhaler Inhale 2 puffs by mouth 2 times daily Active Montelukast Sodium (SINGULAIR PO) Activ e Social History Tobacco Use Types Packs/Day Years Used Date Smoking Tobacco: Some Days Smokeless Tobacco: Never Sex and Gender Information Value Date Recorded Sex Assigned at Not on file Legal Sex Male 8:43 AM CDT Gender Identity Not on file Sexual Orientation Not on file Last Filed Vital Signs Vital Sign Reading Time Taken Comments Blood Pressure 130/88 09/29/2020 11:20 AM CDT Pulse 88 09/29/2020 11:20 AM CDT Temperature 36.6 C (97.9 F) 09/29/2020 11:20 AM CDT Respiratory Rate 20 09/29/2020 11:20 AM CDT Oxygen Saturation 98% 09/29/2020 11:20 AM CDT Inhaled Oxygen Concentration - - Weight 122.9 kg (271 lb) 09/29/2020 11:20 AM CDT Height 175.3 cm (5' 9) 09/29/2020 11:20 AM CDT Body Mass Index 40.02 09/29/2020 11:20 AM CDT Plan of Treatment Health Maintenance Due Date Last Done Comments COLOGUARD (AGES 45-75) - COLON CA SCREENING 1977 COLON MONITORING 1977 COLONOSCOPY - COLON CA SCREENING 1977 CT COLONOGRAPHY - COLON CA SCREENING 1977 Colorectal Cancer Screening 1977 FIT - COLON CA SCREENING 1977 FLEX SIG - COLON CA SCREENING 1977 LIPID TESTING 1977 HIV SCREENING 1992 HEPATITIS C SCREENING 09/14/1995 DTAP/TDAP/TD VACCINES (1 - Tdap) 1996 HEPATITIS B VACCINE (1 of 3 - 19+ 3-dose series) 1996 SCREENING FOR DIABETES 09/29/2020 COVID-19 VACCINE (1 - season) 2024 DEPRESSION SCREENING 06/12/2024 INFLUENZA VACCINE (#1) 2025 0, 03/02/2016, 03/01/2016, Additional history exists ZOSTER VACCINE (1 of 2) 09/19/2027 HIB VACCINE Aged Out No longer eligi ble based on patient's age to complete this topic HPV VACCINE Aged Out No longer eligi ble based on patient's age to complete this topic MENINGOCOCCAL (Group B) VACCINE SHARED DECISION-MAKING Aged Out No longer eligible based on patient's age to complete this topic MENINGOCOCCAL GROUPS A/C/Y/W VACCINE Aged Out No longer eligible based on patient's age to complete this topic PNEUMOCOCCAL VACCINE Aged Out No long er eligible based on patient's age to complete this topic Insurance MEDICAID - OUT OF STATE
--- OUTSIDE RECORDS SUMMARY | 2024-12-27 08:07 | XMS_ITS | Encounter Summary ---
Author Organization [facility] Address [address] [place] [address] Phone Care Team Providers Care Industrial Maintenance Technician Name Role Phone Pollo Jones Primary Care Provider U navailable Provider, None Primary Care Provider Unavailabl Lottie Soni APRN, COMPOSITION FLOOR LAYER Primary Care Provider [phone] Denzel Cuellar MD Unavailable [phone] Reason for Visit * Reason Comments Medication Refill Encounter Details Date Type Department Care Team (Late st Contact Info) Description 08/06/[address] [facility] - Primary Care - [place] [address] [place] [address] Pollo Jones, [place] Medication Refill [...] COVID-19? No / Unsure 08/03/2020 3:31 PM LIFE SKILLS COORDINATOR VOLUNTEER documented as of this encounter Plan of Treatment Not on file documented as of this encounter Visit Diagnoses Not on filedocumented in this encounter Additional Health Concerns Infection Onset Date Last Indicated Resolved Time COVID - 19 05/20/2022 05/20/2022 05/30/2022 12:1 6 AM LIFE SKILLS COORDINATOR VOLUNTEER documented as of this encounter Care Teams Industrial Maintenance Technician Relationship Specialty Start Date End Date Pollo Jones PAC PCP - General Physician Online Journalist 05/11/20 03/23/22 Provider, None [place] PCP - General 03/24/22 05/19/22 Lottie Sawyer APRN, COMPOSITION FLOOR LAYER [address] [place] [address] PCP - General Family Medicine 05/20/22 Denzel Cuellar MD [address] [place] [address] Consulting Physician Urology 05/24/22 documented as of this encounter
--- OUTSIDE RECORDS SUMMARY | 2024-12-27 08:07 | XMS_ITS | Encounter Summary ---
Author Organization [facility] Address [address] [place] [address] Phone Care Team Providers Care Candy Decorator Name Role Phone Pollo Jones Primary Care Provider U navailable Provider, None Primary Care Provider Unavailabl Lottie Soni APRN, CERTIFICATION TECHNICIAN Primary Care Provider [phone] Denzel Cuellar MD Unavailable [phone] Reason for Visit * Reason Comments Medication Refill Encounter Details Date Type Department Care Team (Late st Contact Info) Description 07/12/[address] [facility] - Primary Care - [place] [address] [place] [address] Pollo Jones, [place] Medication Refill [...] COVID-19? No / Unsure 07/02/2020 11:13 AM EDM OPERATOR documented as of this encounter Miscellaneous Notes * Telephone Encounter - Pollo Jones PAC - 07/14/2020 9:03 AM EDM OPERATOR Rx refill approved. OPERATOR * Telephone Encounter - Mariann Salguero RN - 07/14/2020 8:39 AM CST Medication failed the protocol, provider to review and approve the medication order if appropriate. Requested Prescriptions Pending Prescriptions Disp Refills busPIRone (BUSPAR) 15 MG Tablet [Pharmacy Med Name: BUSPIRONE HCL 15 MG TABLET] 60 Tab 2 Sig: TAKE 1 TABLET BY MOUTH TWICE A DAY Not Delegated - Psychiatry: Anxiolytics/Hypnotics Failed - 07/12/2020 7:30 AM Failed - This refill cannot be delegated Passed - Valid encounter within last 6 months Past Office Visits Recent Outpatient Visits 1 week ago SOB (shortness of breath) [facility] Pollo Jones PAC 4 weeks ago SOB (shortness of breath) [facility] Pollo Jones PAC 2 months ago SOB (shortness of breath) [facility] Pollo Jones PAC 4 years ago Chronic right shoulder pain [facility] - Antonio Obrien, DO Upcoming Appointments Future Appointments In 2 weeks Usha Peña LCSW [facility], [facility] In 2 weeks Pollo Jones PAC [facility] In 1 month Levi Escalera MD [facility] PULMONOLOGY, [facility] CLINICAL NURSE EDUCATOR - Recent and Past Visits Recent Visits Date Type Provider Dept 07/02/20 Office Visit Pollo Jones PAC [facility] 06/15/20 Office Visit Pollo Jones PAC [facility] 05/11/20 Office Visit Pollo Jones PAC [facility] Showing recent visits within past 460 days with a meds authorizing provider and meeting all other requirements Future Appointments Date Type Provider Dept 08/03/20 Appointment Pollo Jones PAC [facility] Showing future appointments within next 90 days with a meds authorizing provider and meeting all other requirements OPERATOR documented in this encounter Plan of Treatment Not on file documented as of this encounter Visit Diagnoses Not on filedocumented in this encounter Additional Health Concerns Infection Onset Date Last Indicated Resolved Time COVID - 19 05/20/2022 05/20/2022 05/30/2022 12:1 6 AM EDM OPERATOR documented as of this encounter Care Teams Candy Decorator Relationship Specialty Start Date End Date Pollo Jones PAC PCP - General Physician Hr Associate 05/11/20 03/23/22 Provider, None [place] PCP - General 03/24/22 05/19/22 Lottie Sawyer APRN, CERTIFICATION TECHNICIAN [address] [place] [id number] PCP - General Family Medicine 05/20/22 Denzel Cuellar MD [address] [place] [id number] Consulting Physician Urology 05/24/22 documented as of this encounter
--- OUTSIDE RECORDS SUMMARY | 2024-12-27 08:07 | XMS_ITS | Patient Health Record ---
Author Organization [facility] As [facility] Address [address] [place] [address] Care Team Providers Care Loft Worker Apprentice Name Role Phone Rajan Atkinson Unavailable [phone] Reason For Referral No Information Medications Medication SIG (Take, Route, Frequency, Duration) Notes Start Date End Date Status Diclofenac Sodium 75 MG Oral 04/13/2023 Active Sertraline HCl 100 MG Oral 04/13/2023 Active Flovent HFA 220 MCG/ACT Inhalation 04/13/2023 Active traMADol HCl 50 MG Oral 04/13/2023 Active methylPREDNISolone 4 MG Oral 04/13/2023 Active Atomoxetine HCl 80 MG Oral 04/13/2023 Active ProAir HFA 108 (90 Base) MCG/ACT Inhalation 04/13/2023 Active Symbicort 160-4.5 MCG/ACT Inhalation 04/13/2023 Active clonazePAM 0.5 MG Oral 04/13/2023 A ctive Montelukast Sodium 10 MG Oral 04/13/2023 Active Immunizations Vaccine Route Administration Date Status Comme nts Selam Covid-19 Vaccine Unknown 08/17/2020 Administere d Plan Of Treatment No Information Insurance Providers Payer Name Payer Address Payer Phone Subscriber Number Group Number Insured Name Patient Relationship to Insured Coverage Start Date Coverage End Date [facility] [address] [place] [address] [id number] CHELA OSULLIVAN Self - patient is the insured Medical (General) History Surgical History Surgery Date(Month/Year) Sinus surgery Sinus surgery 09/12/2017
--- OUTSIDE RECORDS SUMMARY | 2024-12-27 08:07 | XMS_ITS | Encounter Summary ---
Author Organization [facility] Address [address] [place] [address] Phone Care Team Providers Care Deckhand Name Role Phone Jaren Sosa MD Primary Care Provider [phone] Reason for Referral * Pulmonology (Routine) - Closed Specialty Diagnoses / Procedures Referred By Contac t Referred To Contact Pulmonology Diagnoses Environmental allergies Procedures Pulmonary Function Test -[facility] Adult PFT Lab- CAM-8D; Standard; Spirometry, Spirometry w/bronchodilator, DLCO and Lung Volumes Rene Williamson MD Phone: tel: fax: [address] [address] Phone: tel: fax: Referral ID Status Reason Start Date Expiration Date Visits Re quested Visits Authorized [id number] Closed 04/12/2021 03/21/2022 12 12 Reason for Visit * Pulmonology (Routine) - Closed Specialty Diagnoses / Procedures Referred By Contac t Referred To Contact Pulmonology Diagnoses Environmental allergies Procedures Pulmonary Function Test -[facility]FT [facility]- CAM-8D; Standard; Spirometry, Spirometry w/bronchodilator, DLCO and Lung Volumes Rene Williamson MD Phone: tel: fax: [address] [place] [address] Phone: tel: fax: Referral ID Status Reason Start Date Expiration Date Visits Re quested Visits Authorized [id number] Closed 04/12/2021 03/21/2022 12 12 Encounter Details Date Type Department Care Team (Latest Contact Info) Description 04/12/2021 2:35 PM CDT Hospital Encounter [facility] PFT Lab [address] [address] [place] [id number] Environmental allergies Social History Tobacco Use Types [...] on file Legal 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 Gender Identity Not on file Sexual Orientation Not on file documented as of this encounter Plan of Treatment Not on file documented as of this encounter Procedures Procedure Name Priority Date/Time Associated Diagnosis Comments PULMONARY FUNCTION TEST (PFT) Routine 04/12/2021 3:45 PM CDT Environmental allergies documented in this encounter Results * Pulmonary Function Test - (04/12/2021 3:45 PM CDT) FVC PRE 4.50 L [facility] FVC %PRE PRED 85 % [facility] FVC POST 4.87 L [facility] FVC %POST PRED 92 % [facility] FEV1 PRE 3.12 L [facility] FEV1 %PRE PRED 74 % [facility] FEV1 POST 3.62 L [facility] FEV1 %POST PRED 86 % [facility] FEV1/FVC PRE 69.3 % [facility] FEV1/FVC POST 74.4 % [facility] FRC PL PRE 3.21 L [facility] FRC PL %PRE PRED 90 % [facility] RV PRE 2.87 L [facility] RV %PRE PRED 149 % [facility] TLC PRE 7.47 L [facility] TLC %PRE PRED 106 % [facility] DLCO PRE 28.7 ml/min/mmH g [facility] DLCO %PRE PRED 92 % [facility] Anatomical Region Laterality Modality PFT 04/12/2021 2:55 PM CDT Narrative 04/28/2021 12:52 PM TYPING OFFICE WORKER PFT performed at:->[facility] Adult PFT Lab- CAM-8D Procedure:->Standard Standard:->Spirometry, Spirometry w/bronchodilator, DLCO and Lung Volumes us Rene Williamson MD PFT ORDERABLES Final Result documented in this encounter Visit Diagnoses Diagnosis Environmental allergies Other allergy, other than to medicinal agents documented in this encounter Care Teams Deckhand Relationship Specialty Start Date End Date Jaren Sosa MD PCP - General 07/09/15 documented as of this encounter
[2024-12-27 08:12] VITALS: BP 130/85; PULSE 106; RESP 16; TEMP 36.4; O2SAT 99
--- NOTE | 2024-12-27 08:20 | ED.URI ---
HPI - URI/Sore Throat General Chief Complaint: Extremity Injury, Upper Stated Complaint: WC Source: patient and RN notes reviewed Mode of arrival: ambulatory Limitations: no limitations Related Data Home Medications ?Medication ?Instructions ?Recorded ?Confirmed ?Last Taken ?Type buspirone 15 mg tablet 15 mg PO BID 11/16/20 12/04/20 Unknown History tiotropium bromide 1.25 2 puff inhalation DAILY 11/16/20 12/04/20 Unknown History mcg/actuation mist for inhalation (Spiriva Respimat) diclofenac sodium 75 mg mg PO 12/27/24 Unknown History tablet,delayed release sertraline 100 mg tablet mg 12/27/24 Unknown History Allergies Allergy/AdvReac Type Severity Reaction Status Date / Time No Known Allergies Allergy Verified 11/16/20 13:26 Review of Systems Review of Systems: CONSTITUTIONAL: Denies malaise, chills, sweats, or fever. SKIN: Denies rash or itching, open skin, laceration, abrasion, redness, warmth, swelling. MUSCULOSKELETAL: Reports left knee pain NEUROLOGIC: Denies numbness, weakness All systems reviewed & are unremarkable except as noted in HPI and below PMFSH Past Medical History Medical History (Updated 11/17/20 @ 00:01 by Annalee Mckeon) Fatigue Anxiety GERD (gastroesophageal reflux disease) Dyspnea on exertion Chronic bronchitis Surgical History Surgical History (Updated 11/20/20 @ 12:38 by Mariann Brooks NP) History of sinus surgery Hx of nasal septoplasty Family History Family History Other Diabetes mellitus Social History Social History Smoking status: Former smoker Alcohol intake: current Drinks per week: 2 Substance use: current Substance use type: marijuana Last use: 12/12/19 Spiritual care concerns: No Comments At time of signature, agree with nursing past medical, surgical, social and family history. There is no relevant family history pertinent to the presenting complaint Exam Narrative: GENERAL: Well-appearing, well-nourished, and in no acute distress. HEAD: Normocephalic, atraumatic. EYES: PERRLA, conjunctivae clear NECK: Supple. CHEST: Speaks in full sentences. No respiratory distress. HEART: Regular rate and rhythm. Normal and equal peripheral pulses. EXTREMITIES: [Xxx] has grossly normal strength and sensation, grossly normal range of motion. No edema or ecchymosis. 5/5 strength with [xxx] flexion and extension. Normal sensation with sensitivity to light touch and pain. No point tenderness. No open wounds, no skin tenting, no devitalized tissue or atrophy, no trophic changes, no obvious deformity, alignment normal, nearby joints and structures intact. Distal pulses palpable and equal bilaterally, skin warm, dry, pink. Capillary refill less than 3 seconds. SKIN: Warm, dry, no rash. NEURO: Alert and oriented x3. PSYCH: Normal mood and affect Course Course Emergency Course: Patient is aware of diagnosis, understands and agrees to treatment plan. Anticipatory guidance given. Patient agrees to follow-up as directed and is aware of reasons to seek care at the emergency department. Portions of this record may have been created with voice recognition software Level of Care: Express Care Visit Vital Signs Vital signs: Vital Signs Temperature 97.5 F L 12/27/24 08:12 Pulse Rate 106 H 12/27/24 08:12 Respiratory Rate 16 12/27/24 08:12 Blood Pressure 130/85 12/27/24 08:12 Pulse Oximetry 99 12/27/24 08:12 Oxygen Delivery Room Air 12/27/24 08:12 Temperature 97.5 F L 12/27/24 08:12 Pulse Rate 106 H 12/27/24 08:12 Respiratory Rate 16 12/27/24 08:12 Blood Pressure 130/85 12/27/24 08:12 Pulse Oximetry 99 12/27/24 08:12 Oxygen Delivery Room Air 12/27/24 08:12 Reviewed. Critical Care Time Critical Care Time Critical Care Time: No Discharge Plan Discharge Patient Language: Indonesian Prescriptions: No Action sertraline 100 mg tablet diclofenac sodium 75 mg tablet,delayed release (DR/EC) PO buspirone 15 mg tablet 15 mg PO BID Spiriva Respimat 1.25 mcg/actuation mist 2 puff INHALATION DAILY budesonide-formoterol [Symbicort] 160-4.5 mcg/actuation HFA aerosol inhaler 2 puff inhalation Q12H 30 Days Qty: 10.2 5RF albuterol sulfate [Ventolin HFA] 90 mcg/actuation HFA aerosol inhaler See Rx Instructions .ROUTE .COMPLEX Qty: 18 2RF Dose Instruction: INHALE 1 PUFF BY MOUTH EVERY 4 HOURS NEEDED FOR SHORTNESS OF BREATH OR WHEEZING Rx Instructions: INHALE 1 PUFF BY MOUTH EVERY 4 HOURS NEEDED FOR SHORTNESS OF BREATH OR WHEEZING montelukast 10 mg tablet See Rx Instructions .ROUTE .COMPLEX Qty: 90 1RF Dose Instruction: TAKE ONE TABLET BY MOUTH DAILY Rx Instructions: TAKE ONE TABLET BY MOUTH DAILY Follow-up/Referrals: Silverio,Lottie Castillo APN [Primary Care Provider] -
--- NOTE | 2024-12-27 08:38 | ED.UPPEXIN ---
HPI - Extremity Injury (Upper) General Chief Complaint: Extremity Injury, Upper Stated Complaint: WC Time Seen by Provider: 12/27/24 08:18 Source: patient and RN notes reviewed Mode of arrival: ambulatory Limitations: no limitations History of Present Illness HPI narrative: 49-year-old male presents with concern for left arm pain. 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 He reports he caught himself with his left arm. He reports pain in the elbow and wrist with range of motion, reports mid arm tenderness. He reports he took ibuprofen yesterday. He denies any decreased strength, sensation, range of motion in the arm, joints, hand, digits. Denies bruising, redness, swelling, warmth. Denies open skin MD complaint: injury to: left and arm Related Data Home Medications ?Medication ?Instructions ?Recorded ?Confirmed ?Last Taken ?Type buspirone 15 mg tablet 15 mg PO BID 11/16/20 12/04/20 Unknown History tiotropium bromide 1.25 2 puff inhalation DAILY 11/16/20 12/04/20 Unknown History mcg/actuation mist for inhalation (Spiriva Respimat) diclofenac sodium 75 mg mg PO 12/27/24 Unknown History tablet,delayed release sertraline 100 mg tablet mg 12/27/24 Unknown History Allergies Allergy/AdvReac Type Severity Reaction Status Date / Time No Known Allergies Allergy Verified 11/16/20 13:26 Review of Systems Review of Systems: CONSTITUTIONAL: Denies malaise, chills, sweats, or fever. SKIN: Denies rash or itching, open skin, laceration, abrasion, redness, warmth, swelling. MUSCULOSKELETAL: Reports left arm pain NEUROLOGIC: Denies numbness, weakness All systems reviewed & are unremarkable except as noted in HPI and below PMFSH Past Medical History Medical History (Updated 12/27/24 @ 08:48 by Opal Cuevas NP) Fatigue Anxiety GERD (gastroesophageal reflux disease) Dyspnea on exertion Chronic bronchitis Surgical History Surgical History (Updated 11/20/20 @ 12:38 by Mariann Brooks NP) History of sinus surgery Hx of nasal septoplasty Family History Family History Other Diabetes mellitus Social History Social History Smoking status: Former smoker Alcohol intake: current Drinks per week: 2 Substance use: current Substance use type: marijuana Last use: 12/12/19 Spiritual care concerns: No Comments At time of signature, agree with nursing past medical, surgical, social and family history. There is no relevant family history pertinent to the presenting complaint Exam Narrative: GENERAL: Well-appearing, well-nourished, and in no acute distress. HEAD: Normocephalic, atraumatic. EYES: PERRLA, conjunctivae clear NECK: Supple. CHEST: Speaks in full sentences. No respiratory distress. HEART: Regular rate and rhythm. Normal and equal peripheral pulses. EXTREMITIES: Left arm, elbow, wrist, hand, digits have grossly normal strength and sensation, grossly normal range of motion. No edema or ecchymosis. Normal sensation with sensitivity to light touch and pain. Point tenderness noted to the proximal radius. No open wounds, no skin tenting, no devitalized tissue or atrophy, no trophic changes, no obvious deformity, alignment normal, nearby joints and structures intact. Distal pulses palpable and equal bilaterally, skin warm, dry, pink. Capillary refill less than 3 seconds. SKIN: Warm, dry, no rash. NEURO: Alert and oriented x3. PSYCH: Normal mood and affect Course Course Emergency Course: Patient is aware of diagnosis, understands and agrees to treatment plan. Anticipatory guidance given. Patient agrees to follow-up as directed and is aware of reasons to seek care at the emergency department. Portions of this record may have been created with voice recognition software Level of Care: Express Care Visit Vital Signs Vital signs: Vital Signs Temperature 97.5 F L 12/27/24 08:12 Pulse Rate 106 H 12/27/24 08:12 Respiratory Rate 16 12/27/24 08:12 Blood Pressure 130/85 12/27/24 08:12 Pulse Oximetry 99 12/27/24 08:12 Oxygen Delivery Room Air 12/27/24 08:12 Temperature 97.5 F L 12/27/24 08:12 Pulse Rate 106 H 12/27/24 08:12 Respiratory Rate 16 12/27/24 08:12 Blood Pressure 130/85 12/27/24 08:12 Pulse Oximetry 99 12/27/24 08:12 Oxygen Delivery Room Air 12/27/24 08:12 Reviewed. Procedures Orthopedic Splinting/Casting Injury #1: Splinting/Casting Date: 12/27/24 Splinting/Casting Time: 08:43 Side: left Upper Extremity Injury Location: forearm Splint: customized in ED OCL: long arm Pre-Procedure Neuro Vascular Exam: normal Other Orthopedic Equipment: other (Sling) MDM - Extremity Injury (Upper) MDM Narrative Medical decision making narrative: Patients injury and pain is consistent with musculoskeletal etiology. No signs of neurological or vascular compromise on exam. Compartments and tissues are soft without signs of compartment syndrome. Pain is felt appropriate for further evaluation on an outpatient basis. Imaging Data My impression: Images reviewed, interpreted by radiologist, agree, see report. Radiologist's impression: XR elbow LT min 3V Ordering provider: Opal Cuevas NP History: . FOOSH INJURY, GEN PAIN . Comparison: None. FINDINGS: BONES: Fracture in the proximal one third of the radius is noted JOINT SPACES: Normal. SOFT TISSUES: Normal. No definite joint effusion. IMPRESSION: Fracture in the proximal one third of the left radius. Critical Care Time Critical Care Time Critical Care Time: No Discharge Plan Discharge Clinical Impression: Fracture of radius, proximal Patient Disposition: Home Condition: Stable Instructions: Arm Fracture in Adults (ED) Additional Instructions: Please rest, ice and elevate the affected extremity. Please take Motrin 600mg every 8 hours, as needed, for pain (take with food). Follow up with Orthopedic Surgery in 1-2 days for further evaluation - please call for an appointment. Keep cast clean, dry and on. Please use garbage bag while showering to keep cast dry. Use sling. Please go to ER immediately for increased pain, tingling/numbness, swelling, redness, and fever Patient Language: Montenegrin Prescriptions: No Action sertraline 100 mg tablet diclofenac sodium 75 mg tablet,delayed release (DR/EC) PO buspirone 15 mg tablet 15 mg PO BID Spiriva Respimat 1.25 mcg/actuation mist 2 puff INHALATION DAILY budesonide-formoterol [Symbicort] 160-4.5 mcg/actuation HFA aerosol inhaler 2 puff inhalation Q12H 30 Days Qty: 10.2 5RF albuterol sulfate [Ventolin HFA] 90 mcg/actuation HFA aerosol inhaler See Rx Instructions .ROUTE .COMPLEX Qty: 18 2RF Dose Instruction: INHALE 1 PUFF BY MOUTH EVERY 4 HOURS NEEDED FOR SHORTNESS OF BREATH OR WHEEZING Rx Instructions: INHALE 1 PUFF BY MOUTH EVERY 4 HOURS NEEDED FOR SHORTNESS OF BREATH OR WHEEZING montelukast 10 mg tablet See Rx Instructions .ROUTE .COMPLEX Qty: 90 1RF Dose Instruction: TAKE ONE TABLET BY MOUTH DAILY Rx Instructions: TAKE ONE TABLET BY MOUTH DAILY Follow-up/Referrals: Sawyer,Lottie Castillo APN [Primary Care Provider] - Lg Grant MD [Physician] - Stand Alone Forms: Work/School Release IP
== END 2024-12-27 09:04 | disposition home or self-care (01) ==
PROVIDERS: Emergency Provider Nurse Practitioner; PCP Nurse Practitioner Family
DX: S52.102A Unspecified fracture of upper end of left radius, initial encounter for closed fracture (principal); W01.0XXA Fall on same level from slipping, tripping and stumbling without subsequent striking against object, initial encounter; Y99.0 Civilian activity done for income or pay; K21.9 Gastro-esophageal reflux disease without esophagitis; Z87.891 Personal history of nicotine dependence
CPT/HCPCS: 29105; 73080; 99214; A4565; G0463

== ENCOUNTER 2025-01-07 12:53 | Outpatient (CLI) | payer OTHER, SELFPAY ==
--- NOTE | ~2025-01-07 | XR_ITS ---
EXAM: XR wrist LT min 3V DATE: 01/07/2025 16:05 HISTORY: M25.532 - Pain in left wrist . COMPARISON: None available. FINDINGS: Osseous detail obscured by cast material. Normal mineralization. Possible small ulnar stylo id fracture fragment, seen only in the oblique view. No lytic or blastic lesion. Joint spaces are clark ntained. No erosion or periosteal change. Soft tissues within normal limits. IMPRESSION: Possible small ulnar styloid fracture. No other acute osseous finding detected in the lef t wrist. Comparison to outside studies would be helpful if available. Reviewed, dictated and finalized at location K. IMPRESSION: Possible small ulnar styloid fracture. No other acute osseous findi ng detected in the left wrist. Comparison to outside studies would be helpful i f available.
--- NOTE | ~2025-01-07 | XR_ITS ---
XR elbow LT min 3V 01/07/2025 13:18 Indication: Left arm fracture. Procedure: 3 views left elbow Comparison: 12/27/2024 Findings: There is a displaced comminuted proximal radial fracture. There is a joint effusion of the elbow. No other fracture is identified. Impression: 1: Displaced, comminuted proximal radial diaphyseal fracture. 2: Moderate elbow effusion. Reviewed, dictated and finalized at location B. Impression: 1: Displaced, comminuted proximal radial diaphyseal fracture. 2: Moderate elbow effusion.
--- OUTSIDE RECORDS SUMMARY | 2025-01-07 13:13 | XMS_ITS | Clinical Summary ---
Author Organization [facility] Address [facility] [place] [address] Care Team Providers Care Dewatering Filtering Supervisor Name Role Phone Unavailable Primary Care Provider [...]
--- OUTSIDE RECORDS SUMMARY | 2025-01-07 13:13 | XMS_ITS | Data Portability ---
Author Organization [facility] Address [address] [place] [address] Care Team Providers Care Chair Inspector And Leveler Name Role Phone SCHMITZ LOTTIE Primary Care Provider [phone] Assessment No assessment recorded. Plan of Treatment Reminders Order Date Submit Date Provider Last Modified By Organization Details Last Modified Time Details Appointments None recorded . Lab TSH, ultra-se nsitive, serum 2024 025 DAHIANA Labkaran, [address], [address], [place], [address], 5 16:41:11 CMP, serum or plasma 2024 025 DAHIANA Haney, [address], [address], [place], [address], 5 16:41:09 lipid panel, serum 2024 025 DAHIANA Haney, [address], [address], [place], [address], 5 16:41:10 CBC 2024 025 DAHIANA Haney, [address], [address], [place], [address], 5 16:41:11 vitamin D, 25-hydro xy, total, serum 2024 025 [facility], [address] [place] [address] 2, [place], [address], 5 11:36:22 TSH, ultra-se nsitive, serum 2023 024 [facility], [address], [address], [place], [address], 4 14:13:12 CMP, serum or plasma 2023 024 [facility], [address], [address], [place], [address], 4 14:13:11 lipid panel, serum 2023 024 [facility], [address], [address], [place], [address], 4 14:13:11 CBC 2023 024 [facility], [address], [address], [place], [address], 4 14:13:14 vitamin D, 25-hydro xy, total, serum 2023 024 [facility], [address] [place] [address] 2, [place], [address], 4 14:13:16 noninvas miracle colorect al cancer DNA + occult blood screenin g, QL, stool 2023 024 [facility] [employer] (Cologuard Orders Only), [address], [address], [place], [address], 5 05:32:22 C reactive protein, QN, serum or plasma 2023 024 [facility], [address] [facility] [address], [place], [address], 4 14:13:16 ANDRÉS (antinuc lear antibodi es) screen, serum 2023 024 [facility]NA [facility], [address] [facility], [facility] [address], [place], [address], 4 14:13:10 erythroc yte sediment ation rate by westergr en method 2023 024 [facility], [address] [facility], [facility] [address], [place], [address], 4 14:13:15 uric acid, serum or plasma 2023 024 [facility], [address] [facility], [facility] [address], [place], [address], 4 14:13:13 rf (rheumat oid factor) + anti-ccp abs, serum 2023 024 [facility], [address] [facility], [facility] [address], [place], [address], 4 14:13:09 Referral physical therapis t referral 2023 024 joseph [facility], [address], [place], [address], 5 11:30:[address] referral 2023 024 joseph Garcia DPM, [address] [place], [address], 5 11:30:19 Procedures None recorded . Surgeries None recorded . Imaging XR, shoulder , 2 or more view 2023 024 [place] [facility] Guadalupe Christianson Scheduling, [address], [place], [address], 4 16:47:39 Medication Orders sertrali ne 100 mg tablet 2024 025 [id number], [address], [place], [place], [id number], 5 16:40:02 diclofen ac sodium 75 mg tablet,d elayed release 2024 025 [facility]55184, [address], [place], [place], [id number], 5 16:40:00 monteluk ast 10 mg tablet 2024 025 [facility] #89542, [address], [place], [place], [id number], 5 16:40:04 Airsupra 90 mcg-80 mcg/actu ation HFA aerosol inhaler 2024 025 [facility] #26435, [address], [place], [place], [id number], 5 16:42:22 sertrali ne 100 mg tablet 2023 024 [facility] #21009, [address], [place], [place], [id number], 4 11:59:12 diclofen ac sodium 75 mg tablet,d elayed release 2023 024 [facility] #65334, [address], [place], [place], [id number], 4 11:58:19 monteluk ast 10 mg tablet 2023 024 [facility] #68468, [address], [place], [place], [id number], 4 11:58:18 diclofen ac sodium 75 mg tablet,d elayed release 2023 024 [facility] #35909, [address], [place], [place], [id number], 4 09:10:05 monteluk ast 10 mg tablet 2023 024 [facility] #82342, [address], [place], [place], [id number], 4 16:16:56 Voltaren Arthriti s Pain 1 % topical gel 2022 023 [facility] #10303, [address], [place], [place], [id number], 4 08:43:49 diclofen ac sodium 75 mg tablet,d elayed release 2022 023 [facility] #68997, [address], [place], [place], [id number], 3 15:08:37 Voltaren Arthriti s Pain 1 % topical gel 2022 023 [facility] #23550, [address], [place], [place], [id number], 4 08:43:49 diclofen ac sodium 75 mg tablet,d elayed release 2022 023 [facility] #92235, [address], [place], [place], [id number], 3 12:09:10 monteluk ast 10 mg tablet 2022 023 [facility][id number], [address] [facility], [place], [address], 3 12:06:13 Patient TargetsNo targets recorded. Patient Instructions Encounter Date Encounter Id Patient Instructions Last Modified By Organization Details Last Modified Time 11/03/2022 [id number] gastroesophageal reflux disease (GERD): care instructions Not available 11/03/2022 12:06:11 When You Want to Lose Weight: Care Instructions Not available 11/03/2022 12:06:11 learning about vitamin D Not available 11/03/2022 12:08:19 anxiety disorder : care instructions Not available 11/03/2022 12:06:11 Continue all medications as prescribed. Not available 11/03/2022 12:05:45 f/u 6 months DWP barriers to care: none Not available 11/03/2022 12:05:06 06/06/2023 [id number] gastroesophageal reflux disease (GERD): care instructions Not [...] care: none Not available 06/06/2023 15:04:30 11/23/2023 [id number] gastroesophageal reflux disease (GERD): care instructions Not [...] care: none Not available 11/23/2023 09:06:47 06/04/2024 [id number] gastroesophageal reflux disease (GERD): care instructions Not [...] care: none Not available 06/04/2024 11:43:49 12/09/2024 [id number] gastroesophageal reflux disease (GERD): care instructions Not [...] Not available 12/09/2024 16:31:44 Reason for Referral Education Paraprofessional Referral for Plan tar fasciitis of left foot Referring Physician: [facility], Encounter Date: 06/04/2024 Physical Therapist Referral for Pain of left shoulder joint Referring Physician: [facility], Encounter Date: 06/04/2024 Results Created Date Observation Date Name Description Value Unit Range Abnormal Flag Note LastModifiedBy Organization Detail LastModifiedTime 11/23/19 25 11/22/2024 COLOG UARD cologuard result Cancel led - Order d not applic able Not Available [facility] (Cologuard Orders Only) [address], [place], [address], 11/22/2024 05:32:21 11/23/19 24 11/24/2023 RHEUM ATOID ARTHR ITIS PROFI LE rheumatoid factor (rf) <10.0 Not Available [facility] ([facility]) [address] [place], [address], 11/24/2023 14:13:09 11/23/19 24 11/24/2023 RHEUM ATOID ARTHR ITIS PROFI LE anti-ccp Ab, IgG/IgA 2 units 0-19 Negat miracle <20 Weak posit miracle 20 - 39 Moder ate posit miracle 40 - 59 Stron g posit miracle >59 Not Available [facility] ([facility]) [address] [place], [address], 11/24/2023 14:13:09 11/23/19 24 11/24/2023 ANTIN UCLEA R AB MULTI PLEX RFX 9 ANDRÉS direct NEGATI VE negati ve Not Available [facility] ([facility]) [address] [place], [address], 11/24/2023 14:13:10 11/23/19 24 11/24/2023 LIPID PANEL cholesterol, total 186 mg/dL 100-19 9 Not Available [facility] ([facility]) [address] [place], [address], 11/24/2023 14:13:11 11/23/19 24 11/24/2023 LIPID PANEL triglyceride s 124 mg/dL 0-149 Not Available [facility] ([facility]) [address] [place], [address], 11/24/2023 14:13:11 11/23/19 24 11/24/2023 LIPID PANEL HDL cholesterol 44 mg/dL >39 Not Available [facility] ([facility]) [address] [place], [address], 11/24/2023 14:13:11 11/23/19 24 11/24/2023 LIPID PANEL VLDL cholesterol kristine 22 mg/dL 5-40 Not Available [facility] ([facility]) [address] [facility], [place], [address], 11/24/2023 14:13:11 11/23/19 24 11/24/2023 LIPID PANEL LDL chol calc ([facility]) 120 mg/dL 0-99 above high normal Not Available [facility] ([facility]) [address] [place], [address], 11/24/2023 14:13:11 11/23/19 24 11/24/2023 COMP. METAB OLIC PANEL (14) glucose 84 mg/dL 70-99 Not Available [facility] ([facility]) [address] [place], [address], 11/24/2023 14:13:11 11/23/19 24 11/24/2023 COMP. METAB OLIC PANEL (14) BUN 18 mg/dL 6-24 Not Available [facility] ([facility]) [address] [place], [address], 11/24/2023 14:13:11 11/23/19 24 11/24/2023 COMP. METAB OLIC PANEL (14) creatinine 1.09 mg/dL 0.76-1 .27 Not Available [facility] ([facility]) [address] [place], [address], 11/24/2023 14:13:11 11/23/19 24 11/24/2023 COMP. METAB OLIC PANEL (14) eGFR 85 mL/mi n/1.7 3 >59 Not Available [facility] ([facility]) [address] [place], [address], 11/24/2023 14:13:11 11/23/19 24 11/24/2023 COMP. METAB OLIC PANEL (14) BUN/creatini ne ratio 17 9-20 Not Available [facility] ([facility]) [address] [facility], [place], [address], 11/24/2023 14:13:11 11/23/19 24 11/24/2023 COMP. METAB OLIC PANEL (14) sodium 140 mmol/ L 134-14 4 Not Available [facility] ([facility]) [address] [facility], [place], [address], 11/24/2023 14:13:11 11/23/19 24 11/24/2023 COMP. METAB OLIC PANEL (14) potassium 4.7 mmol/ L 3.5-5. 2 Not Available [facility] ([facility]) [address] [facility], [place], [address], 11/24/2023 14:13:11 11/23/19 24 11/24/2023 COMP. METAB OLIC PANEL (14) chloride 103 mmol/ L 96-106 Not Available [facility] ([facility]) [address] [facility], [place], [address], 11/24/2023 14:13:11 11/23/19 24 11/24/2023 COMP. METAB OLIC PANEL (14) carbon dioxide, total 25 mmol/ L 20-29 Not Available [facility] ([facility]) [address] [facility], [place], [address], 11/24/2023 14:13:11 11/23/19 24 11/24/2023 COMP. METAB OLIC PANEL (14) calcium 9.1 mg/dL 8.7-10 .2 Not Available [facility] ([facility]) [address] [facility], [place], [address], 11/24/2023 14:13:11 11/23/19 24 11/24/2023 COMP. METAB OLIC PANEL (14) protein, total 6.4 g/dL 6.0-8. 5 Not Available [facility] ([facility]) [address] [place], [address], 11/24/2023 14:13:11 11/23/19 24 11/24/2023 COMP. METAB OLIC PANEL (14) albumin 4.0 g/dL 4.1-5. 1 below low normal Not Available [facility] ([facility]) [address] [place], [address], 11/24/2023 14:13:11 11/23/19 24 11/24/2023 COMP. METAB OLIC PANEL (14) globulin, total 2.4 g/dL 1.5-4. 5 Not Available [facility] ([facility]) [address] [place], [address], 11/24/2023 14:13:11 11/23/19 24 11/24/2023 COMP. METAB OLIC PANEL (14) A/G ratio 1.7 Not Available [facility] ([facility]) [address] [place], [address], 11/24/2023 14:13:11 11/23/19 24 11/24/2023 COMP. METAB OLIC PANEL (14) bilirubin, total 0.6 mg/dL 0.0-1. 2 Not Available [facility] ([facility]) [address] [place], [address], 11/24/2023 14:13:11 11/23/19 24 11/24/2023 COMP. METAB OLIC PANEL (14) alkaline phosphatase 66 IU/L 44-121 Not Available [facility] ([facility]) [address] [place], [address], 11/24/2023 14:13:11 11/23/19 24 11/24/2023 COMP. METAB OLIC PANEL (14) AST (SGOT) 21 IU/L 0-40 Not Available [facility] ([facility]) [address] [facility], [address], 11/24/2023 14:13:11 11/23/19 24 11/24/2023 COMP. METAB OLIC PANEL (14) ALT (SGPT) 32 IU/L 0-44 Not Available [facility] ([facility]) [address] [facility], [place], [address], 11/24/2023 14:13:11 11/23/19 24 11/24/2023 TSH RFX ON ABNOR MAL TO FREE T4 TSH 1.300 uIU/m L 0.450- 4.500 Not Available [facility] ([facility]) [address] [place], [address], 11/24/2023 14:13:12 11/23/19 24 11/24/2023 URIC ACID uric acid 5.4 mg/dL 3.8-8. 4 Thera yakovi c rosangela t for gout patie nts: <6.0 Not Available [facility] ([facility]) [address] [facility], [place], [address], 11/24/2023 14:13:13 11/23/19 24 11/24/2023 CBC, NO DIFFE RENTI AL/PL ATELE T WBC 7.3 x10e3 /uL 3.4-10 .8 Not Available [facility] ([facility]) [address] [place], [address], 11/24/2023 14:13:14 11/23/19 24 11/24/2023 CBC, NO DIFFE RENTI AL/PL ATELE T RBC 4.90 x10e6 /uL 4.14-5 .80 Not Available [facility] ([facility]) [address] [place], [address], 11/24/2023 14:13:14 11/23/19 24 11/24/2023 CBC, NO DIFFE RENTI AL/PL ATELE T hemoglobin 15.4 g/dL 13.0-1 7.7 Not Available [facility] ([facility]) [address] [facility], [place], [address], 11/24/2023 14:13:14 11/23/1911/24/2023 CBC, NO DIFFE RENTI AL/PL ATELE T hematocrit 46.2 % 37.5-5 1.0 Not Available [facility] ([facility]) [address] [facility], [place], [address], 11/24/2023 14:13:14 11/23/19 24 11/24/2023 CBC, NO DIFFE RENTI AL/PL ATELE T MCV 94 fL 79-97 Not Available [facility] ([facility]) [address] [facility], [place], [address], 11/24/2023 14:13:14 11/23/19 24 11/24/2023 CBC, NO DIFFE RENTI AL/PL ATELE T MCH 31.4 pg 26.6-3 3.0 Not Available [facility] ([facility]) [address] [facility], [place], [address], 11/24/2023 14:13:14 11/23/1911/24/2023 CBC, NO DIFFE RENTI AL/PL ATELE T MCHC 33.3 g/dL 31.5-3 5.7 Not Available [facility] ([facility]) [address] [facility], [place], [address], 11/24/2023 14:13:14 11/23/1911/24/2023 CBC, NO DIFFE RENTI AL/PL ATELE T RDW 12.4 % 11.6-1 5.4 Not Available [facility] ([facility]) [address] [facility], [place], [address], 11/24/2023 14:13:14 11/23/19 24 11/24/2023 CBC, NO DIFFE RENTI AL/PL ATELE T NRBC - Eff ectiv e January 08, 2024, deric reddy 70298 7 CBC, No Diffe renti al, No Plate let will be made non-o rdera ble. [facility] Offer s: 65143 9 CBC With Diffe renti al/Pl atele t 79363 2 CBC, Plate let, No Diffe renti al Not Available [facility] ([facility]) [address] [facility], [place], [address], 11/24/2023 14:13:14 11/23/19 24 11/24/2023 SEDIM ENTAT ION RATE- WESTE RGREN sedimentatio n rate-westerg sushil 2 mm/HR 0-15 Not Available [facility] ([facility]) [address] [place], [address], 11/24/2023 14:13:15 11/23/19 24 11/24/2023 C-HAJA CTIVE PROTE IN, QUANT C-reactive protein, quant 2 mg/L 0-10 Not Available [facility] ([facility]) [address] [facility], [place], [address], 11/24/2023 14:13:16 11/23/19 24 11/24/2023 VITAM IN [...] 1. IOM (Inst itute of Medic ine). 2010. Dieta ry refer ence intak es for calci um and D. Rebekah torres [place]: The Natio nal [facility] Press . 2. Cody rios MF, Binjeannie ey [place], Sherlyn off-F errar i WEAVER, et al. Evalu ation , treat ment, and preve ntion of vitam in D defic iency : an Endoc rine Socie ty clini kristine pract ice guide line. JCEM. 2010; 96(7) :1911 -30. Not Available [facility] ([facility]) [address], [place], [address], 11/24/2023 14:13:16 12/26/19 24 12/26/2023 XR, shoul kellen, 2 or more view No observ ation record ed. [facility] [address] [facility] , [place], [address], 01/03/2024 17:20:51 12/28/19 25 12/27/2024 XR, elbow , 3 or more view No observ ation record ed. [facility] [address], [place], [address], 12/30/2024 15:32:11 Result Notes None recorded. Problems Name Problem SNOMED Code Status Onset Date Resolution Date Notes Provider Name and Address Organization Details Recorded Time Generalized anxiety disorder 48778237 Active 2020 Lottie Schmitz APN, FNP-C Attn: Candi sarmiento,[address] [place], [address], [facility] 1 11:43:30 Gastro-esop hageal reflux disease with esophagitis 480210812 Active 2020 Lottie Schmitz APN, FNP-C Attn: Candi sarmiento,[address] [place], [address], [facility] 1 11:45:16 Reactive airway disease 265348935323 Active 2020 Lottie Schmitz APN, FNP-Karan Attn: Candi sarmiento,[address] [place], [address], [facility] 11:48:35 Environment al allergy 412638595 Active 2020 Lottie Schmitz APN, FNP-C Attn: Candi sarmiento,[address] [facility] [place], [address], [place] [facility] 1 11:50:11 Depression screening Active 2020 Lottie Schmitz APN, CASH GRAIN FARMER-C Attn: Accountin g,[address] [facility], [place], [address], [place] [facility] 1 11:50:13 Wheezing 50604921 Active 2020 Lottie Schmitz GENETICS PHYSICIAN, CASH GRAIN FARMER-C Attn: Accountin g,[address] [facility], [place], [address], [place] [facility] 1 17:25:00 Obesity 369279427 Active 2021 Lottie Schmitz GENETICS PHYSICIAN, CASH GRAIN FARMER-C Attn: Accountin g,[address] [facility], [place], [address], [place] [facility] 2 15:03:32 Plantar fasciitis of left foot 5902818776936 9101 Active 2021 Lottie Schmitz APN, CASH GRAIN FARMER-C Attn: Accountin g,[address] [facility], [place], [address], [place] [facility] 2 15:04:21 Vitamin D deficiency 52371424 Active 2022 Lottie Schmitz GENETICS PHYSICIAN, CASH GRAIN FARMER-C Attn: Accountin g,[address] [facility], [place], [address], [place] [facility] 3 12:08:06 Depressive disorder 75434104 Active 2023 Lottie Schmitz GENETICS PHYSICIAN, CASH GRAIN FARMER-C Attn: Accountin g,[address] [facility], [place], [address], [place] [facility] 4 13:15:16 Pain of multiple joints 35370997 Active 2023 Lottie Schmitz GENETICS PHYSICIAN, CASH GRAIN FARMER-C Attn: Accountin g,[address] [facility], [place], [address], [place] [facility] 4 09:04:18 Pain of left shoulder joint 2713802316225 9109 Active 2023 Lottie Schmitz APN, LIBANC Attn: Candi guillermina,[address] [facility], [place], [address], [facility] 09:04:19 Problem Notes Documentation Provider Name and Address Organization Details Recorded Time Behavioral Health Consult Note : This document (1 of 1) was received from [email or web address] [address] [email or web address] on 09/27/2024 through Direct Message along with the following message body content: Patient Name: CHELA WAGNER. Patient : 1975. Patient . Lindy shen [facility] 09/30/2024 10:00:49 Procedures Surgical History Date Name Laterality Status Provider Name and Address Organization Details Recorded Time Back Surgery completed Teresa Hernandez MA [facility] 12/02/2020 11:21:12 manipulation of displaced nasal septum completed Teresa Hernandez MA [facility] 12/02/2020 11:21:26 Imaging Results None recorded. Procedure [...] completed Not Available Not Available Not Available IBU 600 mg tablet Take 1 tablet 3 times a day by oral route as needed. 2024 active Not Available Not Available Not Avai lable tamsulosi n 0.4 mg capsule TAKE 1 [...] Relief 50 mcg/actua tion nasal spray,evie pension [employer] 1 spray every day by intranas al [...] pen injector 10/18 completed prescrib ed by allergmana king but cost too much Not Available Not Available Not Available Qelbree 200 mg capsule,e xtended release TAKE 2 CAPSULES BY MOUTH EVERY DAY 07/01 completed Not Available Not Available Not Available Airsupra 90 mcg-80 mcg/actua tion HFA aerosol inhaler Inhale by inhalati on route for 84 days. active Not Available Not Available No t Available Vitals Date Recorded Body height Body mass index (BMI) Body weight Oxygen saturation Oxygen saturation in Arterial blood by Pulse oximetry Heart rate Respiratory rate Body temperature Systolic And Diastolic Provider Name and Address Organization Details Last Updated DateTime 3 175.26 cm 36 kg/m2 209261. 54 g 98 % 98 % 102 /min 16 /min 98 [degF] 120/80 mm[Hg] Faith Richey [facility] 3 11:50:41 Date Recorded Body height Body mass index (BMI) Body weight Oxygen saturation Oxygen saturation in Arterial blood by Pulse oximetry Respiratory rate Body temperature Heart rate Systolic And Diastolic Provider Name and Address Organization Details Last Updated DateTime 4 175.26 cm 36.2 kg/m2 111384. 13 g 99 % 99 % 16 /min 97.5 [degF] 78 /min 126/86 mm[Hg] LORETTA Manzo [facility] 4 08:45:44 Date Recorded Body height Body mass index (BMI) Body weight Oxygen saturation Oxygen saturation in Arterial blood by Pulse oximetry Heart rate Respiratory rate Body temperature Systolic And Diastolic Provider Name and Address Organization Details Last Updated DateTime 5 175.26 cm 37.9 kg/m2 238472. 45 g 96 % 96 % 82 /min 18 /min 97.5 [degF] 114/71 mm[Hg] Dianna Carrillo MA [facility] 5 16:22:07 Date Recorded Body height Body mass index (BMI) Body weight Oxygen saturation Oxygen saturation in Arterial blood by Pulse oximetry Respiratory rate Body temperature Heart rate Systolic And Diastolic Provider Name and Address Organization Details Last Updated DateTime 4 175.26 cm 36.5 kg/m2 917743. 32 g 97 % 97 % 16 /min 98 [degF] 88 /min 118/86 mm[Hg] LORETTA Manzo [facility] 4 11:24:06 Date Recorded Body height Body mass index (BMI) Body weight Oxygen saturation Oxygen saturation in Arterial blood by Pulse oximetry Heart rate Respiratory rate Body temperature Systolic And Diastolic Provider Name and Address Organization Details Last Updated DateTime 3 175.26 cm 36.9 kg/m2 696739. 66 g 96 % 96 % 101 /min 16 /min 98.2 [degF] 122/84 mm[Hg] Blessing Jett MA [facility] 3 14:38:36 Social History Question Answer Notes LastModified by [email or web address] ion Details LastModified Time Tobacco Smoking Status Former Smoker quit 2019 Faith Richey [facility] 01/18/2022 12:09:25 Do You Have An Advance Directive? No Information not available 12/02/2020 Are You Blind Or Do You Have Difficulty Seeing? No Glasses Information not available 01/28/2021 What Is Your Level Of Caffeine Consumption? Moderate [email or web address] Information not available 07/01/2022 In The 14 [...] Diet Are You Following? REGULAR Portion Control [email or web address] Information not available 07/01/2022 Are There Any [...] Age Did You Start Smoking Tobacco? 16 [email or web address] Information not available 01/18/2022 Are You Passively Exposed To Smoke? Yes Information no t available 12/02/2020 How Much Tobacco Do You Smoke? No [email or web address] Information not available 01/14/2021 Do You Use Sunscreen Routinely? No Information not available 12/02/2020 Has Tobacco Cessation Counseling Been Provided? No Information not available 12/09/2024 On What Date Was Tobacco Cessation Counseling Provided? 12/09/2024 Information not available 12/09/2024 How Many Years Have You Smoked Tobacco? 27 [email or web address] Information not available 01/18/2022 Sex: Male Functional [...] 12/02/2020 Are you able to care for yourself independently? Yes Information not available 12/02/2020 What is your occupation? [place] [employer] [email or web address] Information not available 11/03/2022 What is your exercise level? Occasional [email or web address] Information not available 01/18/2022 Mental Status Question Answer Note LastModified by Organization D etails LastModified Time Do you feel stressed (tense, restless, nervous, or anxious, or unable to sleep at night)? [id number] Information not available 01/28/2021 Family History Relationship [...] Response Coronary Artery Disease N Other N Atrial Fibrillation N High Blood Pressure N Depression Y COPD N Blood Clots N Anxiety Disorder Y Muscle, Joint, or Bone Problems N Acid Reflux (GERD) Y Cancer N Stroke N ADHD N High Cholesterol N Liver Disease N Schizophrenia N Headaches N Thyroid Problems N Kidney or Bladder Problems N GI Problems N Eating Disorder N Skin Problems N Anemia N Heart Attack (CA) N Diabetes N Seizures/Epilepsy N Asthma N Allergies N Substance Abuse N Hepatitis N Heart Failure N Osteoporosis N Immunizations Vaccine Type Date Status Note Provider Nam e and Address Organization Details Recorded Time pneumococcal polysaccharide PPV23 1 completed Lottie Schmitz APN, CASH GRAIN FARMER-C Attn: Accounting,[address] [place], [address], [facility] 07/01/2022 15:20:16 COVID-19 vaccine, vector-nr, rS-Ad26, PF, 0.5 mL 1 completed Lottie Schmitz APN, C[employer] GRAIN FARMER-C Attn: Accounting,[address] [place], [address], [facility] 07/01/2022 15:20:16 Influenza, split virus, trivalent, PF 6 completed Lottie Schmitz APN [employer]C Attn: Accounting,[address], [place], [address], [place] [facility] 07/01/2022 15:20:16 COVID-19, mRNA, LNP-S, bivalent, PF, 30 mcg/0.3 mL dose 3 completed Faith shen, [place] - [facility] 11/03/2022 14:29:06 Past Encounters Encounter ID Performer Location Encounter Start Date Encounter Closed Date Diagnosis/Indication Diagnosis SNOMED-CT Code Diagnosis ICD10 Code Diagnosis Note [id number] MD Marcos Verdugohasmukh [address] [place] [address] 12/09/2019 09:35:43 12/10/2019 14:59:09 Suspected COVID-19 602812197 Z03.038 [id number] MD Eugenio Ronquillo (Adult Med) [address] [place] [address] 12/02/2020 10:37:32 12/04/2020 04:20:47 Adult health examination 391459735 Z00.01 Encouraged patient to eat well balanced meals, live active lifestyle and attend routine vision/den presley apts. Obesity 692781906 E66.9 advised low fat, low cholestero l diet, regular exercise and weight reduction. 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, Depression screening 171 734360 Z13.31 pos BEATRIS and PHQ9, dwp scores, pt declines referral, is frustrated that he does not have answers, not depressed but does feel anxious when his breathing worsens Reactive a irway disease 5741569572 06 J45.909 dwp will need to get records from pulmonary, pt unsure of dx- asthma or copd or severe allergies, very poor historianc ont rescue inhaler/ne bulizer prncont ICS-will try to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
--- OUTSIDE RECORDS SUMMARY | 2025-01-07 13:13 | XMS_ITS | Referral Summary ---
Author Organization [facility] Address [address] [place] [address] Care Team Providers Care Commercial Account Executive Name Role Phone Jaren Sosa MD Primary Care Provider [phone] Encounters Date Type Department Care Team Description 12/27/2024 Telephone [facility] Medical [facility] Orthopedics and Sports Medicine [address] 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 Admit Date: 11/19/2010 Dict.: Adonay Sánchez M.D. Disch. Date: NAME OF PROCEDURE: Colonoscopy. DATE OF PROCEDURE: November 19, 2010. HISTORY: This is a 35-year old male with blood in the stool. PHYSICAL EXAMINATION: Well developed male. Lungs are clear.Cardiovascular examination is unremarkable. PROCEDURE: Colonoscopy was performed with the [employer] video endoscope.The patient was premedicated by Anesthesia. [...] Relevant to Health Maintenance Insurance [facility] Care Teams Commercial Account Executive Relationship Specialty Start Date End Date Ian, Jaren D., MD PCP - General 07/09/15
--- OUTSIDE RECORDS SUMMARY | 2025-01-07 13:13 | XMS_ITS | Encounter Summary ---
Author Organization [facility] Address [address] [place] [address] Phone Care Team Providers Care Bag Patcher Name Role Phone Pollo Jones Primary Care Provider U navailable Provider, None Primary Care Provider Unavailabl Lottie Soni APRN CHARGE ACCOUNT CLERK Primary Care Provider [phone] Denzel Cuellar MD Unavailable [phone] Reason for Visit * Reason Comments Medication Refill Encounter Details Date Type Department Care Team (Late st Contact Info) Description 10/17/2020 Refill [facility] - Primary Care - [place] [address] [place] [address] Pollo Jones PAC Medication Refill [...] 2 months ago Panic disorder without agoraphobia [facility] Pollo Jones PAC 3 months ago SOB (shortness of breath) [facility] Pollo Jones PAC 4 months ago SOB (shortness of breath) [facility] Pollo Jones PAC 5 months ago SOB (shortness of breath) [facility] Pollo Jones PAC 5 years ago Chronic right shoulder pain [facility] Antonio Obrien, DO Upcoming Appointments Future Appointments In 2 weeks Pollo Jones PAC [facility] - Recent and Past Visits Recent Visits Date Type Provider Dept 08/03/20 Office Visit Pollo Jones PAC [facility] 07/02/20 Office Visit Pollo Jones PAC [facility] 06/15/20 Office Visit Pollo Jones PAC [facility] 05/11/20 Office Visit Pollo Jones PAC [facility] Showing recent visits within past 460 days with a meds authorizing provider and meeting all other requirements Future Appointments Date Type Provider Dept 11/02/20 Appointment Pollo Jones PAC [facility] Showing future appointments within next 90 days with a meds authorizing provider and meeting all other requirements documented in this encounter Plan of Treatment Not on file documented as of this encounter Visit Diagnoses Not on filedocumented in this encounter Additional Health Concerns Infection Onset Date Last Indicated Resolved Time COVID - 19 05/20/2022 05/20/2022 05/30/2022 12:1 6 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
--- OUTSIDE RECORDS SUMMARY | 2025-01-07 13:13 | XMS_ITS | Clinical Summary ---
Author Organization [facility] Address [address] [place] [address] Care Team Providers Care Interior Design Assistant Name Role Phone Jaren Sosa MD Primary Care Provider [phone] Allergies No known active allergies Medications ibuprofen [...] Date Environmental allergies CLEARY (dyspnea on exertion) Encounters Date Type Department Care Team Description 12/27/2024 Telephone [facility] Medical Group Orthopedics and Sports Medicine [address] [facility] [address] [place] [address] Akbar Owens MD from Last 3 Months Immunizations Immunization Administration Dates Next Due Influenza, [...] on file 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 Admit Date: 11/19/2010 Dict.: Adonay Sánchez M.D. Disch. Date: NAME OF PROCEDURE: Colonoscopy. DATE OF PROCEDURE: November 19, 2010. HISTORY: This is a 35-year old male with blood in the stool. PHYSICAL EXAMINATION: Well developed male. Lungs are clear.Cardiovascular examination is unremarkable. PROCEDURE: Colonoscopy was performed with the [employer] video endoscope.The patient was premedicated by Anesthesia. [...] Early diverticulosis, otherwise normal. Adonay Sánchez M.D. DR/teresita TD: 11/19/2010 12:08 CC: Jaren Ian, M.D. PROCEDURE REPORT Authenticated by Adonay Sánchez MD On 11/22/2010 08:04:02 AM us Historical Provider ENDOSCOPY PROCEDURES Kelsi l Result from Last 3 Months or Most Recently Relevant to Health Maintenance Insurance [facility] Care Teams Interior Design Assistant Relationship Specialty Start Date End Date Jaren Sosa MD PCP - General 07/09/15
--- OUTSIDE RECORDS SUMMARY | 2025-01-07 13:14 | XMS_ITS | Encounter Summary ---
Author Organization [facility] Address [address] [place] [address] Phone Care Team Providers Care Housekeeper/Custodian/Laundry Worker Name Role Phone Jaren Sosa MD Primary Care Provider [phone] Reason for Referral * Pulmonology (Routine) - Closed Specialty Diagnoses / Procedures Referred By Contac t Referred To Contact Pulmonology Diagnoses Environmental allergies Procedures Pulmonary Function Test -[facility] Adult PFT Lab- CAM-8D; Standard; Spirometry, Spirometry w/bronchodilator, DLCO and Lung Volumes Rene Williamson MD Phone: tel: fax: [address] [address] Phone: tel: fax: Referral ID Status Reason Start Date Expiration Date Visits Re quested Visits Authorized [id number] Closed 04/12/2021 03/21/2022 12 12 Reason for Visit * Pulmonology (Routine) - Closed Specialty Diagnoses / Procedures Referred By Contac t Referred To Contact Pulmonology Diagnoses Environmental allergies Procedures Pulmonary Function Test -[facility] Adult PFT Lab- CAM-8D; Standard; Spirometry, Spirometry w/bronchodilator, DLCO and Lung Volumes Rene Williamson MD Phone: tel: fax: [address] [place] [address] Phone: tel: fax: Referral ID Status Reason Start Date Expiration Date Visits Re quested Visits Authorized [id number] Closed 04/12/2021 03/21/2022 12 12 Encounter Details Date Type Department Care Team (Latest Contact Info) Description 04/12/2021 2:35 PM CDT Hospital Encounter [facility] PFT Lab [address] [facility] Medical Office Building [address] [place] [id number] Environmental allergies Social History Tobacco Use Types [...] on file 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 Gender Identity Not on file Sexual Orientation Not on file documented as of this encounter Plan of Treatment Not on file documented as of this encounter Procedures Procedure Name Priority Date/Time Associated Diagnosis Comments PULMONARY FUNCTION TEST (PFT) Routine 04/12/2021 3:45 PM CDT Environmental allergies documented in this encounter Results * Pulmonary Function Test - (04/12/2021 3:45 PM CDT) FVC PRE 4.50 L [facility] FVC %PRE PRED 85 % [facility] FVC POST 4.87 L [facility] FVC %POST PRED 92 % [facility] FEV1 PRE 3.12 L [facility] FEV1 %PRE PRED 74 % [facility] FEV1 POST 3.62 L [facility] FEV1 %POST PRED 86 % [facility] FEV1/FVC PRE 69.3 % [facility] FEV1/FVC POST 74.4 % [facility] FRC PL PRE 3.21 L [facility] FRC PL %PRE PRED 90 % [facility] RV PRE 2.87 L [facility] RV %PRE PRED 149 % [facility] TLC PRE 7.47 L [facility] TLC %PRE PRED 106 % [facility] DLCO PRE 28.7 ml/min/mmH g [facility] DLCO %PRE PRED 92 % [facility] Anatomical Region Laterality Modality PFT 04/12/2021 2:55 PM CDT Narrative 04/28/2021 12:52 PM DIRECTOR OF GIFT PLANNING PFT performed at:->[facility] Adult PFT Lab- CAM-8D Procedure:->Standard Standard:->Spirometry, Spirometry w/bronchodilator, DLCO and Lung Volumes us Rene Williamson MD PFT ORDERABLES Final Result documented in this encounter Visit Diagnoses Diagnosis Environmental allergies Other allergy, other than to medicinal agents documented in this encounter Care Teams Housekeeper/Custodian/Laundry Worker Relationship Specialty Start Date End Date Jaren Sosa MD PCP - General 07/09/15 documented as of this encounter
--- OUTSIDE RECORDS SUMMARY | 2025-01-07 13:14 | XMS_ITS | Clinical Summary ---
Author Organization [facility] Address [address] [place] [address] Phone Care Team Providers Care Cloth Desizing Range Tender Name Role Phone Silverio, Lottie TAPIA CNP Primary Care Provider [phone] Denzel Cuellar MD Unavailable [phone] Allergies No known active allergies Medications ibuprofen [...] Comments Blood Pressure 136/80 06/24/2022 11:10 AM STAFFING RN Pulse 97 07/22/2022 11:09 AM STAFFING RN Temperature 36.6 C (97.8 F) 06/24/2022 11:10 AM STAFFING RN Respiratory Rate 20 07/22/2022 11:09 AM STAFFING RN Oxygen Saturation 97% 07/22/2022 11:09 AM STAFFING RN Inhaled Oxygen Concentration - - Weight 104.8 kg (231 lb) 07/22/2022 11:09 AM STAFFING RN Height 170.2 cm (5' 7) 07/22/2022 11:09 AM STAFFING RN Body Mass Index 36.18 07/22/2022 11:09 AM STAFFING RN Plan of Treatment Health Maintenance Due Date [...] patient's age to complete this topic Insurance [facility] Care Teams Cloth Desizing Range Tender Relationship Specialty Start Date End Date Lottie Sawyer APRN, EGG TESTER [address] [facility] [address] [place] [address] PCP - General Family Medicine 05/20/22 Denzel Cuellar MD [address] [address] Consulting Physician Urology 05/24/22
--- OUTSIDE RECORDS SUMMARY | 2025-01-07 13:14 | XMS_ITS | Encounter Summary ---
Author Organization [facility] Address [address] [place] [address] Phone Care Team Providers Care Technology Infusion Specialist Name Role Phone Pollo Jones Primary Care Provider U navailable Provider, None Primary Care Provider Unavailabl Lottie Soni APRN, STRATEGIC DEBRIEFING OFFICER Primary Care Provider [phone] Denzel Cuellar MD Unavailable [phone] Reason for Visit * Reason Comments Medication Refill Encounter Details Date Type Department Care Team (Late st Contact Info) Description 08/06/2020 Refill [facility] - Primary Care - [place] [address] [place] [address] Pollo Jones, [place] Medication Refill [...] COVID-19? No / Unsure 08/03/2020 3:31 PM CARDIOLOGY PHYSICIAN ASSISTANT documented as of this encounter Plan of Treatment Not on file documented as of this encounter Visit Diagnoses Not on filedocumented in this encounter Additional Health Concerns Infection Onset Date Last Indicated Resolved Time COVID - 19 05/20/2022 05/20/2022 05/30/2022 12:1 6 AM CARDIOLOGY PHYSICIAN ASSISTANT documented as of this encounter Care Teams Technology Infusion Specialist Relationship Specialty Start Date End Date Pollo Jones PAC PCP - General Physician Netting Inspector 05/11/20 03/23/22 Provider, None [place] PCP - General 03/24/22 05/19/22 Lottie Sawyer APRN, STRATEGIC DEBRIEFING OFFICER [address] [place] [address] PCP - General Family Medicine 05/20/22 Denzel Cuellar MD [address] [place] [address] Consulting Physician Urology 05/24/22 documented as of this encounter
--- OUTSIDE RECORDS SUMMARY | 2025-01-07 13:14 | XMS_ITS | Encounter Summary ---
Author Organization [facility] Address [address] [place] [address] Phone Care Team Providers Care Help Desk Agent Name Role Phone Pollo Jones Primary Care Provider U navailable Provider, None Primary Care Provider Unavailabl Lottie Soni APRN, PRESCHOOL ASSISTANT PRINCIPAL Primary Care Provider [phone] Denzel Cuellar MD Unavailable [phone] Reason for Visit * Reason Comments Medication Refill Encounter Details Date Type Department Care Team (Late st Contact Info) Description 09/15/2020 Refill [facility] - Primary Care - [place] [address] [place] [address] Pollo Jones, [place] Medication Refill [...] 19 05/20/2022 05/20/2022 05/30/2022 12:1 6 AM RESIDENT PROGRAM SPECIALIST documented as of this encounter Care Teams Help Desk Agent Relationship Specialty Start Date End Date Pollo Jones PAC PCP - General Physician Feeder Worker Power Unit Operator 05/11/20 03/23/22 Provider, None [place] PCP - General 03/24/22 05/19/22 Lottie Sawyer APRN, PRESCHOOL ASSISTANT PRINCIPAL [address] [place] [address] PCP - General Family Medicine 05/20/22 Denzel Cuellar MD [address] [place] [address] Consulting Physician Urology 05/24/22 documented as of this encounter
--- OUTSIDE RECORDS SUMMARY | 2025-01-07 13:14 | XMS_ITS | Encounter Summary ---
Author Organization [facility] Address [address] [place] [address] Phone Care Team Providers Care Sewer And Cutter Finger Buff Material Name Role Phone Pollo Jones Primary Care Provider U navailable Provider, None Primary Care Provider Unavailabl Lottie Soni APRN, LIDAR TECHNICIAN Primary Care Provider [phone] Denzel Cuellar MD Unavailable [phone] Reason for Visit * Reason Comments Medication Refill Encounter Details Date Type Department Care Team (Late st Contact Info) Description 08/06/2020 Refill [facility] - Primary Care - [place] [address] [place] [address] Pollo Jones, [place] Medication Refill [...] COVID-19? No / Unsure 08/03/2020 3:31 PM MDS MANAGER documented as of this encounter Plan of Treatment Not on file documented as of this encounter Visit Diagnoses Not on filedocumented in this encounter Additional Health Concerns Infection Onset Date Last Indicated Resolved Time COVID - 19 05/20/2022 05/20/2022 05/30/2022 12:1 6 AM MDS MANAGER documented as of this encounter Care Teams Sewer And Cutter Finger Buff Material Relationship Specialty Start Date End Date Pollo Jones PAC PCP - General Physician Process Server 05/11/20 03/23/22 Provider, None [place] PCP - General 03/24/22 05/19/22 Lottie Sawyer APRN, LIDAR TECHNICIAN [address] [place] [address] PCP - General Family Medicine 05/20/22 Denzel Cuellar MD [address] [place] [address] Consulting Physician Urology 05/24/22 documented as of this encounter
--- OUTSIDE RECORDS SUMMARY | 2025-01-07 13:14 | XMS_ITS | Encounter Summary ---
Author Organization [facility] Address [address] [place] [address] Phone Care Team Providers Care Utility Bill Collection Clerk Name Role Phone Pollo Jones Primary Care Provider U navailable Provider, None Primary Care Provider Unavailabl Lottie Soni APRN, COSTUME RENTAL CLERK Primary Care Provider [phone] Denzel Cuellar MD Unavailable [phone] Reason for Visit * Reason Comments Medication Refill Encounter Details Date Type Department Care Team (Late st Contact Info) Description 07/07/2020 Refill [facility] - Primary Care - [place] [address] [place] [address] Pollo Jones, [place] Medication Refill [...] COVID-19? No / Unsure 07/02/2020 11:13 AM CAKE WRINGER documented as of this encounter Plan of Treatment Not on file documented as of this encounter Visit Diagnoses Not on filedocumented in this encounter Additional Health Concerns Infection Onset Date Last Indicated Resolved Time COVID - 19 05/20/2022 05/20/2022 05/30/2022 12:1 6 AM CAKE WRINGER documented as of this encounter Care Teams Utility Bill Collection Clerk Relationship Specialty Start Date End Date Pollo Jones PAC PCP - General Physician Pension Agent 05/11/20 03/23/22 Provider, None [place] PCP - General 03/24/22 05/19/22 Lottie Sawyer APRN, COSTUME RENTAL CLERK [address] [place] [address] PCP - General Family Medicine 05/20/22 Denzel Cuellar MD [address] [place] [address] Consulting Physician Urology 05/24/22 documented as of this encounter
--- OUTSIDE RECORDS SUMMARY | 2025-01-07 13:14 | XMS_ITS | Patient Health Record ---
Author Organization [facility] Address [address] [place] [address] Care Team Providers Care Semiconductor Testing Group Leader Name Role Phone Rajan Atkinson Unavailable [phone] Reason For Referral No Information Medications Medication [...] Insured Coverage Start Date Coverage End Date [facility] [address] [place] [address] [id number] CHELA OSULLIVAN Self - patient is the insured Medical (General) History Surgical History Surgery Date(Month/Year) Sinus surgery Sinus surgery 09/12/2017
--- OUTSIDE RECORDS SUMMARY | 2025-01-07 13:14 | XMS_ITS | Clinical Summary ---
Author Organization [facility] Address [address] [place] [address] Care Team Providers Care Ammonia Box Tender Name Role Phone Unavailable Primary Care Provider Unavailabl e Source Comments [facility],non-owned Affiliates and Associated Physician Practices is amultiple site organization consisting of ambulatory clinics and hospital sitesin [place], [place], [place] and [place]. This disclosure is being madepursuant to the Care Everywhere program and may not contain all information available regarding this patient. Last updated 18.[facility] [employer] Allergies No known active allergies Medications * [...]
--- OUTSIDE RECORDS SUMMARY | 2025-01-07 13:14 | XMS_ITS | Encounter Summary ---
Author Organization [facility] Address [address] [place] [address] Phone Care Team Providers Care Marketing Operations Coordinator Name Role Phone Pollo Jones Primary Care Provider U navailable Provider, None Primary Care Provider Unavailabl Lottie Soni APRN, SPECIAL FORCES SENIOR SERGEANT Primary Care Provider [phone] Denzel Cuellar MD Unavailable [phone] Reason for Visit * Reason Comments Medication Refill Encounter Details Date Type Department Care Team (Late st Contact Info) Description 07/12/2020 Refill [facility] - Primary Care - [place] [address] [place] [address] Pollo Jones, [place] Medication Refill [...] COVID-19? No / Unsure 07/02/2020 11:13 AM DETENTION OFFICER documented as of this encounter Miscellaneous Notes * Telephone Encounter - Pollo Jones PAC - 07/14/2020 9:03 AM DETENTION OFFICER Rx refill approved. NTION OFFICER * Telephone Encounter - Mariann Salguero RN [...] ago SOB (shortness of breath) [facility] Pollo Jones PAC 4 weeks ago SOB (shortness of breath) [facility] Pollo Jones PAC 2 months ago SOB (shortness of breath) [facility] Pollo Jones PAC 4 years ago Chronic right shoulder pain [facility]rien, DO Upcoming Appointments Future Appointments In 2 weeks Usha Peña LCSW [facility], [facility] In 2 weeks Pollo Jones PAC [facility] In 1 month Levi Escalera MD [facility] PULMONOLOGY, [facility] SENIOR SOUS CHEF - Recent and Past Visits Recent Visits Date Type Provider Dept 07/02/20 Office Visit Pollo Jones PAC [facility] 06/15/20 Office Visit Pollo Jones PAC [facility] 05/11/20 Office Visit Pollo Jones PAC [facility] [place] Showing recent visits within past 460 days with a meds authorizing provider and meeting all other requirements Future Appointments Date Type Provider Dept 08/03/20 Appointment Pollo Jones PAC [facility] Showing future appointments within next 90 days with a meds authorizing provider and meeting all other requirements NTION OFFICER documented in this encounter Plan of Treatment Not on file documented as of this encounter Visit Diagnoses Not on filedocumented in this encounter Additional Health Concerns Infection Onset Date Last Indicated Resolved Time COVID - 19 05/20/2022 05/20/2022 05/30/2022 12:1 6 AM DETENTION OFFICER documented as of this encounter Care Teams Marketing Operations Coordinator Relationship Specialty Start Date End Date Pollo Jones PAC PCP - General Physician Patent Prosecution Attorney 05/11/20 03/23/22 Provider, None [place] PCP - General 03/24/22 05/19/22 Lottie Sawyer APRN, SPECIAL FORCES SENIOR SERGEANT [address] [place] [address] PCP - General Family Medicine 05/20/22 Denzel Cuellar MD [address] [place] [address] Consulting Physician Urology 05/24/22 documented as of this encounter
== END 2025-01-07 12:54 | disposition home or self-care (01) ==
PROVIDERS: PCP Nurse Practitioner Family; Visit Provider Orthopaedic Surgery
DX: S52.352A Displaced comminuted fracture of shaft of radius, left arm, initial encounter for closed fracture (principal); M25.422 Effusion, left elbow; X58.XXXA Exposure to other specified factors, initial encounter
CPT/HCPCS: 73080; 73110

== ENCOUNTER 2025-02-20 00:07 | Day surgery (SDC) | payer BC, SELFPAY ==
--- OUTSIDE RECORDS SUMMARY | 2021-04-12 14:35 | XMS_ITS | Encounter Summary ---
Author Organization [facility] Address [address] [place] [address] Phone Care Team Providers Care It Applications Manager Name Role Phone Jaren Sosa MD Primary Care Provider [phone] Reason for Referral * Pulmonology (Routine) - Closed Specialty Diagnoses / Procedures Referred By Marina king Referred To Contact Pulmonology Diagnoses Environmental allergies Procedures Pulmonary Function Test -[facility]FT [facility]- CAM-8D; Standard; Spirometry, Spirometry w/bronchodilator, DLCO and Lung Volumes Rene Williamson MD Phone: tel: fax: [facility] [address] [facility] [address] [place] [address] Phone: tel: fax: Referral ID Status Reason Start Date Expiration Date Visits Re quested Visits Authorized [id number] Closed 04/12/2021 03/21/2022 12 12 Reason for Visit * Pulmonology (Routine) - Closed Specialty Diagnoses / Procedures Referred By Marina king Referred To Contact Pulmonology Diagnoses Environmental allergies Procedures Pulmonary Function Test -[facility]FT [facility]- CAM-8D; Standard; Spirometry, Spirometry w/bronchodilator, DLCO and Lung Volumes Rene Williamson MD Phone: tel: fax: [facility] [address] [facility] [address] [place] [address] Phone: tel: fax: Referral ID Status Reason Start Date Expiration Date Visits Re quested Visits Authorized [id number] Closed 04/12/2021 03/21/2022 12 12 Encounter Details Date Type Department Care Team (Latest Contact Info) Description 04/12/2021 2:35 PM CDT Hospital Encounter [facility] [address] [facility] [address] [place] [address] Environmental allergies Social History Tobacco Use Types Packs/Day Years Used Date Smoking Tobacco: Former Cigarettes Q uit: 06/12/2008 Smokeless Tobacco: Never Alcohol Use Standard Drinks/Week Comments Yes 0 (1 standard drink = 0.6 oz pur e alcohol) AUDIT-C Answer Date Recorded Q1: How often do you have a drink containing alc ohol? Monthly or less 01/14/2025 Q2: How many drinks containi ng alcohol do you have on a typical day when you are drinking? 1 or 2 01/14/2025 Q3: How often do you have si x or more drinks on one occasion? Never 01/14/2025 Personal Safety Answer Date Recorded Have you ever been in or are you currently in a harmful physical or emotional relationship or is someone making you feel afraid or unsafe? 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 Monthly or less 01/14/2025 1:27 PM LAWANDAT Wayne Hodges RN Q2: How many drinks containing alcohol do you have on a typical day when you are drinking? 1 or 2 01/14/2025 1:27 PM LAWANDAT [place], Tr acey, RN Q3: How often do you have six or more drinks on one occasion? Never 01/14/2025 1:27 PM CDT Wayne Hodges RN documented as of this encounter Plan of Treatment Not on file documented as of this encounter Procedures Procedure Name Priority Date/Time Associated Diagnosis Comments PULMONARY FUNCTION TEST (PFT) Routine 04/12/2021 3:45 PM CDT Environmental allergies documented in this encounter Results * Pulmonary Function Test - (04/12/2021 3:45 PM CDT) FVC PRE 4.50 L [facility] FVC %PRE PRED 85 % [facility] FVC POST 4.87 L [facility] FVC %POST PRED 92 % [facility] FEV1 PRE 3.12 L [facility] FEV1 %PRE PRED 74 % [facility] FEV1 POST 3.62 L [facility] FEV1 %POST PRED 86 % [facility] FEV1/FVC PRE 69.3 % [facility] FEV1/FVC POST 74.4 % [facility] FRC PL PRE 3.[address] [facility] FRC PL %PRE PRED 90 % [facility] RV PRE 2.87 L [facility] RV %PRE PRED 149 % [facility] TLC PRE 7.47 L [facility] TLC %PRE PRED 106 % [facility] DLCO PRE 28.7 ml/min/mmH g [facility] DLCO %PRE PRED 92 % [facility] Anatomical Region Laterality Modality PFT 04/12/2021 2:55 PM CDT Narrative 04/28/2021 12:52 PM MANAGER PAYER PFT performed at:->[facility] Adult PFT Lab- CAM-8D Procedure:->Standard Standard:->Spirometry, Spirometry w/bronchodilator, DLCO and Lung Volumes us Rene Williamson MD PFT ORDERABLES Final Result documented in this encounter Visit Diagnoses Diagnosis Environmental allergies Other allergy, other than to medicinal agents documented in this encounter Care Teams It Applications Manager Relationship Specialty Start Date End Date Jaren Sosa MD PCP - General 07/09/15 documented as of this encounter
[2025-02-18 15:33] VITALS: BMI 38.5
--- NOTE | 2025-02-18 15:34 | PC.NURSE ---
Report to the Outpatient Waiting Room, entrance under the green pavilion located off [facility], at time _1215_ on date _[id number]_. Planned Procedure Time: _215pm_.? Time changes happen often and if your time is changed the preop area will call you the afternoon before. - You and your visitor will be asked to self-screen and do not enter if you have any COVID symptoms. Please call surgeon if you need to reschedule. - A mask is optional within the hospital at this time. Patients may have clear liquids (water, carbonated beverages, clear teas, apple juice) until 3 hours prior to surgery with a maximum of 20 ounces. - No food from midnight until time of surgery and no smoking, or chewing tobacco (or any form of nicotine). No chewing gum, candy or mints. Take only the following medications with a SIP of water on the morning of surgery: __Sertraline and if needed Oxycodone and inhalers.___ DO NOT STOP ANY OF YOUR OTHER PRESCRIPTION MEDICATIONS PRIOR TO SURGERY EXCEPT THE FOLLOWING Hold all vitamins and supplements for 3 days per anesthesiologist. Medications to discontinue per physician Stop taking Ibuprofen now. Date to take last dose Please no make-up, nail amharic, hairspray, perfume, deodorant, or body powder the day of surgery.? No jewelry (including any body piercings) or valuables the day of surgery, leave them at home.? Please take a shower or bath the night before, or the morning of, surgery with an antibacterial soap.? Wear comfortable, loose fitting clothing.? - Jewelry must be removed prior to entering the operating room.? Rings and piercings that are not removed may be cut off. - The hospital will not accept responsibility for valuables.? - Please leave all valuables, including medications, at home the day of surgery. If you are going home after surgery, a licensed patient transportation driver must drive you home.? - NO public transportation without another adult if you receive anesthesia. - We recommend that an adult stay with you for 24 hours following discharge. - We also recommend that you do not drive, make important decision, drink alcoholic beverages, or take any drugs that were not prescribed by your health care provider for at least 24 hours after your discharge time. Follow any additional instructions given to you from your surgeon. Telephone instructions given to __Neal and Azalia___and asked if any additional questions and then verbalized understanding. Patient advised to call surgeon office or pre surgery nurse liaison [phone] if any additional questions.
[2025-02-20] VITALS (9 sets, daily range): BP systolic 111–143; BP diastolic 66–81; PULSE 86–99; RESP 16–20; TEMP 36.3–36.9; O2SAT 96–100
--- NOTE | ~2025-02-20 | XR_ITS ---
EXAMINATION: XR surgery orthopedic DATE: 02/20/2025 09:39 INDICATION: ORIF right ankle fracture TECHNIQUE: 5 fluoroscopic images of the right ankle were obtained during procedure performed by Dr. Wright. Radiologist was not present for the imaging or procedure. The amount of fluoroscopy time used during this procedure was 0.3 minutes. Total DAP was 0.176 Gycm^2. COMPARISON: None. FINDINGS: There is a mildly comminuted mid diaphyseal fracture of the right fibula with one cortical width anteromedial displacement. There is intervening posterior butterfly fragment which remains nondisplaced with respect to the proximal fibula. Subsequent images demonstrate the distal tibiofibular likely tightrope type syndesmotic fixation with lateral sided metallic plate and 2 medial sided metallic buttons position on either side of a pair of lucent tunnels traversing the metaphyseal regions of the distal tibia and fibula. Normal alignment at the right ankle with congruent ankle mortise. IMPRESSION: 1. Fluoroscopy utilized during distal tibiofibular tightrope type syndesmotic fixation with congruent ankle mortise. 2. Mildly displaced, mildly comminuted diaphyseal fracture of the right fibula. Reviewed, dictated and finalized at location A. IMPRESSION: 1. Fluoroscopy utilized during distal tibiofibular tightrope type syndesmotic f ixation with congruent ankle mortise. 2. Mildly displaced, mildly comminuted diaphyseal fracture of the right fibula.
--- OUTSIDE RECORDS SUMMARY | 2025-02-20 00:10 | XMS_ITS | Encounter Summary ---
Author Organization [facility] Address [address] [place] [address] Phone Care Team Providers Care Highway Technician Name Role Phone Pollo Jones Primary Care Provider U navailable Provider, None Primary Care Provider Unavailabl Lottie Soni APRN, SALES AND MARKETING ADMINISTRATOR Primary Care Provider [phone] Denzel Cuellar MD Unavailable [phone] Reason for Visit * Reason Comments Medication Refill Encounter Details Date Type Department Care Team (Late st Contact Info) Description 08/06/2020 Refill [facility] - Primary Care - [place] [address] [place] [address] Pollo Jones, [place] Medication Refill [...] COVID-19? No / Unsure 08/03/2020 3:31 PM CERAMIC COATER MACHINE documented as of this encounter Plan of Treatment Not on file documented as of this encounter Visit Diagnoses Not on filedocumented in this encounter Additional Health Concerns Infection Onset Date Last Indicated Resolved Time COVID - 19 05/20/2022 05/20/2022 05/30/2022 12:1 6 AM CERAMIC COATER MACHINE documented as of this encounter Care Teams Highway Technician Relationship Specialty Start Date End Date Pollo Jones PAC PCP - General Physician Salt Machine Operator 05/11/20 03/23/22 Provider, None [place] PCP - General 03/24/22 05/19/22 Lottie Sawyer APRN, SALES AND MARKETING ADMINISTRATOR [place] PCP - General Family Medicine 05/20/22 Denzel Cuellar MD #[address] [address] Consulting Physician Urology 05/24/22 documented as of this encounter
--- OUTSIDE RECORDS SUMMARY | 2025-02-20 00:10 | XMS_ITS | Encounter Summary ---
Author Organization [facility] Address [address] [place] [address] Phone Care Team Providers Care Manager Mechanical Name Role Phone Pollo Jones Primary Care Provider U navailable Provider, None Primary Care Provider Unavailabl Lottie Soni APRN, STOCK ANALYST Primary Care Provider [phone] Denzel uCellar MD Unavailable [phone] Reason for Visit * Reason Comments Medication Refill Encounter Details Date Type Department Care Team (Late st Contact Info) Description 07/12/2020 Refill [facility] - Primary Care - [place] [address] [place] [address] Pollo Jones, [place] Medication Refill [...] COVID-19? No / Unsure 07/02/2020 11:13 AM TIP CUTTER documented as of this encounter Miscellaneous Notes * Telephone Encounter - Pollo Jones PAC - 07/14/2020 9:03 AM TIP CUTTER Rx refill approved. CUTTER * Telephone Encounter - Mariann Salguero RN [...] ago SOB (shortness of breath) [facility] Pollo Jones PAC 4 weeks ago SOB (shortness of breath) [facility] Pollo Jones PAC 2 months ago SOB (shortness of breath) [facility] Pollo Jones PAC 4 years ago Chronic right shoulder pain [facility] - Antonio Obrien, DO Upcoming Appointments Future Appointments In 2 weeks Usha Peña LCSW [facility], [facility] In 2 weeks Pollo Jones PAC [facility] [place] In 1 month Levi Escalera MD [facility] PULMONOLOGY, [facility] TRANSPORTATION DRIVER - Recent and Past Visits Recent Visits Date Type Provider Dept 07/02/20 Office Visit Pollo Jones PAC [facility] [place] 06/15/20 Office Visit [facility] 05/11/20 Office Visit Pollo Jones PAC [facility] [place] Showing recent visits within past 460 days with a meds authorizing provider and meeting all other requirements Future Appointments Date Type Provider Dept 08/03/20 Appointment Pollo Jones PAC [facility] Showing future appointments within next 90 days with a meds authorizing provider and meeting all other requirements CUTTER documented in this encounter Plan of Treatment Not on file documented as of this encounter Visit Diagnoses Not on filedocumented in this encounter Additional Health Concerns Infection Onset Date Last Indicated Resolved Time COVID - 19 05/20/2022 05/20/2022 05/30/2022 12:1 6 AM TIP CUTTER documented as of this encounter Care Teams Manager Mechanical Relationship Specialty Start Date End Date Pollo Jones PAC PCP - General Physician Forming Fixer 05/11/20 03/23/22 Provider, None [place] PCP - General 03/24/22 05/19/22 Lottie Sawyer APRN, STOCK ANALYST [place] PCP - General Family Medicine 05/20/22 Denzel Cuellar MD [address] [address] Consulting Physician Urology 05/24/22 documented as of this encounter
--- OUTSIDE RECORDS SUMMARY | 2025-02-20 00:10 | XMS_ITS | Clinical Summary ---
Author Organization [facility] Address [address] [place] [address] Phone Care Team Providers Care Rice Drier Name Role Phone Silverio, Lottie TAPIA CNP Primary Care Provider [phone] Denzel Cuellar MD Unavailable [phone] Allergies No known active allergies Medications fluticasone (FLONASE) 50 MCG/ACT Suspension 2 Sprays by Nasal route daily. Use in each nostril as directed. 1 Bottle 10/12/19 20 Active Respiratory Therapy Supplies (Nebulizer/Tubi ng/Mouthpiece) Kit 1 Units by Does not apply route every 4 hours as needed for Other. 1 Each 05/11/20 20 Active budesonide-form oterol fumarate (Symbicort) 160-4.5 MCG/ACT Aerosol take 2 Puffs by inhalation 2 times daily. 1 Inhaler 3 06/15/19 21 Active Additional Information Patient not taking.Reported on 06/24/2022 omeprazole (PriLOSEC) 20 MG CAPSULE DELAYED RELEASE Take 1 Cap by mouth daily. 90 Cap 2 07/02/19 21 Active albuterol (PROVENTIL, VENTOLIN) (2.5 MG/3ML) 0.083% Nebulizer SolnIndications :Shortness of breath,Wheezing 3 mL by Nebulization route every 4 hours as needed for Wheezing, Shortness of Breath or Cough. 90 Vial 3 08/03/19 21 Active Spiriva Respimat 1.25 MCG/ACT Aerosol Solution INHALE TWO PUFFS BY MOUTH EVERY 24 HOURS 07/14/19 Active montelukast (SINGULAIR) 10 MG Tablet Take 10 mg by mouth daily. 07/14/19 21 Active albuterol 108 (90 Base) MCG/ACT Aerosol Solution take 2 Puffs by inhalation every 4 hours as needed for Wheezing or Cough. 8.5 g 3 08/03/19 21 Active ALPRAZolam (XANAX) 0.5 MG Tablet Take 1 Tablet by mouth 3 times daily as needed for Anxiety. 10 Tablet 08/03/19 21 Active ipratropium-alb uterol (DUO-NEB) 0.5-2.5 (3) MG/3ML Solution USE 3 ML VIA NEBULIZER FOUR TIMES DAILY NEEDED 06/02/20 22 Active sertraline (ZOLOFT) 100 MG Tablet sertraline 100 mg tablet Active atomoxetine (STRATTERA) 25 MG Capsule 06/17/19 23 Active oxyCODONE-aceta minophen (Percocet) 5-325 MG TabletIndicatio ns:Closed right fibular fracture Take 1 Tablet by mouth every 6 hours as needed for Severe pain. 20 Tablet 02/17/20 25 Active ibuprofen (MOTRIN) 800 MG Tablet Take 1 Tab by mouth 3 times daily. 6 09/07/19 16 025 Discontin ued(Med List Clean Up) cetirizine (ZyrTEC) 10 MG Tablet Take 1 Tab by mouth daily. 90 Tab 3 05/11/20 20 025 Discontin ued(Med List Clean Up) busPIRone (BUSPAR) 15 MG Tablet TAKE 1 TABLET BY MOUTH TWICE A DAY 60 Tablet 2 10/20/19 21 025 Discontin ued(Med List Clean Up) traMADol (ULTRAM) 50 MG TabletIndicatio ns:Contusion of jaw, initial encounter Take 1 Tablet by mouth every 8 hours as needed for Moderate or more severe pain. 12 Tablet 10/03/19 22 025 Discontin ued(Med List Clean Up) tamsulosin (FLOMAX) 0.4 MG Capsule Take 1 Capsule by mouth daily. 10 Capsule 05/20/20 22 025 Discontin ued(Med List Clean Up) ondansetron (ZOFRAN-ODT) 4 MG TABLET DISPERSIBLE Take 1 Tablet by mouth every 8 hours as needed for Nausea - 3rd line. 14 Tablet 05/24/20 22 025 Discontin ued(Med List Clean Up) tamsulosin (FLOMAX) 0.4 MG Capsule Take 1 Capsule by mouth daily. 90 Capsule 3 05/24/20 22 025 Discontin ued(Med List Clean Up) HYDROcodone-felicitas taminophen (NORCO) 10-325 MG TabletIndicatio ns:Renal stones Take 1 Tablet by mouth every 6 hours as needed for Severe pain. 20 Tablet 06/17/19 23 025 Discontin ued(Med List Clean Up) clonazePAM (KlonoPIN) 0.5 MG Tablet TAKE 1 TABLET BY MOUTH EVERY DAY NEEDED 06/06/20 22 025 Discontin ued(Med List Clean Up) ondansetron (ZOFRAN-ODT) 4 MG TABLET DISPERSIBLE Take 1 Tablet by mouth every 8 hours as needed for Nausea - 3rd line. 20 Tablet 06/24/19 23 025 Discontin ued(Med List Clean Up) ibuprofen (MOTRIN) 800 MG Tablet Take 1 Tablet by mouth 3 times daily as needed for Severe pain. 30 Tablet 3 06/24/19 23 025 Discontin ued(Med List Clean Up) Active Problems Problem Noted Date Diagnosed Date Depression 10/15/2015 Chronic midline low back pain without sciatica 0 10/15/2015 GERD (gastroesophageal reflux disease) 6 Panic disorder without agoraphobia 10/15/2015 Encounters Date Type Department Care Team Description 02/16/2025 8:01 PM CDT - 02/16/2025 8:54 PM CDT Emergency [facility] Emergency [address] [place] [id number] Cristo Galdamez, [place] Closed right fibular fracture Discharge Disposition: Discharged to home or Selfcare 02/16/2025 Travel from Last 3 Months Immunizations Immunization Administration Dates Next Due Influenza Vaccine 03/01/2016,03/12/2011 Influenza Vaccine, MDCK,quadrivalent, pres free 04/09/2020 Influenza, Trivalent, Adjuvanted, PF 03/02/2016 Pneumococcal Vaccine Adult - 23 Valent Sars-cov-2 (Covid-19) Vaccine, Unspecified 08/17 TDAP Vaccine [...] Sign Reading Time Taken Comments Blood Pressure 147/86 02/16/2025 8:45 PM CDT Pulse 86 02/16/2025 8:45 PM CDT Temperature 36.4 C (97.6 F) 02/16/2025 7:51 PM CDT Respiratory Rate 16 02/16/2025 8:45 PM CDT Oxygen Saturation 97% 02/16/2025 8:45 PM CDT Inhaled Oxygen Concentration - - Weight 117.9 kg (260 lb) 02/16/2025 7:51 PM CDT Height 175.3 cm (5' 9) 02/16/2025 7:51 PM CDT Body Mass Index 38.4 02/16/2025 7:51 PM CDT Plan of Treatment Health Maintenance Due Date Last Done Comments Hepatitis C Virus (HCV) Screening 1977 Hepatitis B Immunization (1 of 3 - 19+ 3-dose series) 1996 Td Immunization Every 10 Years (Adults With 1 Tdap) 07/13/2013 07/13/2003 Pneumococcal Immunization Combined (2 of 2 - PCV) 06/15/2021 06/15/2020 Cologuard 2022 Colonoscopy 2022 Colorectal Cancer Screening 2022 Immunochemical Fecal Occult Blood 2022 Influenza Immunization (#1) 02/10/202504/12, 04/09/2020, 03/02/2016, Additional history exists SARS-COV-2 Immunization (3 - 2024- season) 2025 11/03/2022, 08/17/2020 Respiratory Syncytial Virus (RSV) Immunization (Adult) (1 - 1-dose 75+ series) 2052 Human Papillomavirus (HPV) Immunization Aged Out No longer eligible based on patient's age to complete this topic Meningococcal Immunization (ACWY) Aged Out No longer eligible based on patient's age to complete this topic Rotavirus Immunization Aged Out No lo nger eligible based on patient's age to complete this topic Procedures Procedure Name Priority Date/Time Associated Diagnosis Comments XR TIBIA & FIBULA RIGHT STAT 02/16/2025 8:22 PM CDT XR ANKLE 3 OR MORE VIEWS RIGHT STAT 02/16/2025 8:22 PM CDT SPLINT APPLICATION Routine 02/16/2025 8: 18 PM CDT from Last 3 Months Results * XR TIBIA & FIBULA RIGHT (02/16/2025 8:22 PM CDT) Anatomical Region Laterality Modality LOWER EXTREMITY, leg Right Digital Rad iography 02/16/2025 8:32 PM CDT Impressions 02/16/2025 8:32 PM CDT FINDINGS/IMPRESSION: There is acute fracture of the fibular diaphysis at the junction of its middle and distal thirds, comminuted with a posterior butterfly fragment, and distal fragment anteriorly displaced by approximately one half shaft width. There is acute fracture of the posterior malleolus of the distal tibia, with a nondisplaced fracture line as well as a small mildly inferiorly displaced comminuted fracture fragment. There is widening of the medial mortise to approximately 0.8 cm. Diffuse soft tissue swelling about the ankle, most pronounced medially. Constellation of findings consistent with unstable supination external rotation type injury. Follow-up with orthopedics service recommended. No radiopaque foreign bodies or abnormal air collections are present in the soft tissues. Compromised evaluation of the knee without dedicated joint views. Narrative 02/16/2025 8:32 PM CDT DICTATING PHYSICIAN: Ramon Hidalgo M.D. PROCEDURE: XR TIBIA & FIBULA RIGHT, XR ANKLE 3 OR MORE VIEWS RIGHT INDICATION: pain in right ankle, right lower leg after fall down steps and twisting ankle x 1.5 hours YARD LABOR SUPERVISOR. Pt states his ankle was bent sideways after fall and he moved it back into place YARD LABOR SUPERVISOR TECHNIQUE: Frontal and lateral views of the right tibia and fibula. 2 view(s) submitted. COMPARISON: Right ankle radiographs of same day Procedure Note Ramon Hidalgo MD - 02/16/2025 DICTATING PHYSICIAN: Ramon iHdalgo M.D. PROCEDURE: XR TIBIA & FIBULA RIGHT, XR ANKLE 3 OR MORE VIEWS RIGHT INDICATION: pain in right ankle, right lower leg after fall down steps andtwisting ankle x 1.5 hours YARD LABOR SUPERVISOR. Pt states his ankle was bent sidewaysafter fall and he moved it back into place YARD LABOR SUPERVISOR TECHNIQUE: Frontal and lateral views of the right tibia and fibula. 2view(s) submitted. COMPARISON: Right ankle radiographs of same day FINDINGS/IMPRESSION: There is acute fracture of the fibular diaphysis at the junction of itsmiddle and distal thirds, comminuted with a posterior butterfly fragment,and distal fragment anteriorly displaced by approximately one half shaftwidth. There is acute fracture of the posterior malleolus of the distaltibia, with a nondisplaced fracture line as well as a small mildlyinferiorly displaced comminuted fracture fragment. There is widening ofthe medial mortise to approximately 0.8 cm. Diffuse soft tissue swellingabout the ankle, most pronounced medially. Constellation of findingsconsistent with unstable supination external rotation type injury.Follow-up with orthopedics service recommended. No radiopaque foreignbodies or abnormal air collections are present in the soft tissues.Compromised evaluation of the knee without dedicated joint views. us Yousif Barnard MD IMG DIAGNOSTIC ORDERABLES Final Result * XR ANKLE 3 OR MORE VIEWS RIGHT (02/16/2025 8:22 PM CDT) Anatomical Region Laterality Modality LOWER EXTREMITY, ankle Right Digital R adiography 02/16/2025 8:35 PM CDT Impressions 02/16/2025 8:35 PM CDT FINDINGS/IMPRESSION: There is acute fracture of the fibular diaphysis at the junction of its middle and distal thirds, comminuted with a posterior butterfly fragment, and distal fragment anteriorly displaced by approximately one half shaft width. There is acute fracture of the posterior malleolus of the distal tibia, with a nondisplaced fracture line as well as a small mildly inferiorly displaced comminuted fracture fragment. There is widening of the medial mortise to approximately 0.8 cm. Diffuse soft tissue swelling about the ankle, most pronounced medially. Constellation of findings consistent with unstable supination external rotation type injury. Follow-up with orthopedics service recommended. No radiopaque foreign bodies or abnormal air collections are present in the soft tissues. Narrative 02/16/2025 8:35 PM CDT DICTATING PHYSICIAN: Ramon Hidalgo M.D. 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 Pt states his ankle was bent sideways after fall and he moved it back into place YARD LABOR SUPERVISOR TECHNIQUE: Frontal, lateral, and oblique views of the right ankle. 3 view(s) submitted. COMPARISON: Tibia/fibular radiographs of same day Procedure Note Ramon Hidalgo MD - 02/16/2025 DICTATING PHYSICIAN: Ramon Hidalgo M.D. PROCEDURE: XR ANKLE 3 OR MORE VIEWS RIGHT INDICATION: pain in right ankle, right lower leg after fall down steps andtwisting ankle x 1.5 hours YARD LABOR SUPERVISOR. Pt states his ankle was bent sidewaysafter fall and he moved it back into place YARD LABOR SUPERVISOR TECHNIQUE: Frontal, lateral, and oblique views of the right ankle. 3view(s) submitted. COMPARISON: Tibia/fibular radiographs of same day FINDINGS/IMPRESSION: There is acute fracture of the fibular diaphysis at the junction of itsmiddle and distal thirds, comminuted with a posterior butterfly fragment,and distal fragment anteriorly displaced by approximately one half shaftwidth. There is acute fracture of the posterior malleolus of the distaltibia, with a nondisplaced fracture line as well as a small mildlyinferiorly displaced comminuted fracture fragment. There is widening ofthe medial mortise to approximately 0.8 cm. Diffuse soft tissue swellingabout the ankle, most pronounced medially. Constellation of findingsconsistent with unstable supination external rotation type injury.Follow-up with orthopedics service recommended. No radiopaque foreign bodies or abnormal air collections are present inthe soft tissues. Yousif Barnard MD IMG DIAGNOSTIC ORDERABLES Final Result * Splint Application (02/16/2025 8:18 PM CDT) Narrative Yousif Barnard MD - 02/16/2025 8:18 PM CDT Yousif Barnard MD 02/16/2025 10:40 PM Splint Application Performed by: Cristo Galdamez PAC Authorized by: Cristo Galdamez PAC Consent: Consent obtained: Verbal and written Risks, benefits, and alternatives were discussed: yes Risks discussed: Discoloration and numbness [place] protocol: Procedure explained and questions answered to patient or proxy's satisfaction: yes Relevant documents present and verified: yes Test results available: yes Imaging studies available: yes Required blood products, implants, devices, and special equipment available: yes Site/side marked: yes Immediately prior to procedure a time out was called: yes Patient identity confirmed: Verbally with patient, hospital-assigned identification number and arm band Pre-procedure details: Distal neurologic exam: Normal Distal perfusion: distal pulses strong and brisk capillary refill Procedure details: Location: Leg Leg location: R lower leg Strapping: no Splint type: Long leg Supplies: Cotton padding, elastic bandage, plaster and crutches Attestation: Splint applied and adjusted personally by me Post-procedure details: Distal neurologic exam: Normal Cristo Galdamez PAC PROCEDURE/MINOR SURG ICAL ORDERABLES Final Result from Last 3 Months Insurance [facility] Care Teams Rice Drier Relationship Specialty Start Date End Date Lottie Sawyer APRN, SUPERVISOR FILTER ASSEMBLY PCP - General Family Medicine 05/20/22 Denzel Cuellar MD #[address] [place] [place], [address] [address] Consulting Physician Urology 05/24/22
--- OUTSIDE RECORDS SUMMARY | 2025-02-20 00:10 | XMS_ITS | Encounter Summary ---
Author Organization [facility] Address [address] [place] [address] Phone Care Team Providers Care Asbestos Hazard Abatement Worker Name Role Phone Pollo Jones Primary Care Provider U navailable Provider, None Primary Care Provider Unavailabl Lottie Soni APRN CONTROL SYSTEMS DEVELOPER Primary Care Provider [phone] Denzel Cuellar MD Unavailable [phone] Reason for Visit * Reason Comments Medication Refill Encounter Details Date Type Department Care Team (Late st Contact Info) Description 10/17/2020 [facility]ill [facility] - [place] [address] [place] [address] Pollo Jones PAC Medication Refill [...] 2 months ago Panic disorder without agoraphobia [facility] Pollo Jones PAC 3 months ago SOB (shortness of breath) [facility] Pollo Jones PAC 4 months ago SOB (shortness of breath) [facility] Pollo Jones PAC 5 months ago SOB (shortness of breath) [facility] Pollo Jones PAC 5 years ago [facility] Antonio Obrien, DO Upcoming Appointments Future Appointments In 2 weeks Pollo Jones PAC [facility] - Recent and Past Visits Recent Visits Date Type Provider Dept 08/03/20 [facility] Office Visit Pollo Jones PAC [facility] [place] 06/15/20 Office Visit Pollo Jones PAC [facility] 05/11/20 [facility] Show[facility] recent visits within past 460 days with a meds authorizing provider and meeting all other requirements Future Appointments Date Type Provider Dept 11/02/20 Appointment Pollo Jones PAC [facility] [place] Showing future appointments within next 90 days with a meds authorizing provider and meeting all other requirements documented in this encounter Plan of Treatment Not on file documented as of this encounter Visit Diagnoses Not on filedocumented in this encounter Additional Health Concerns Infection Onset Date Last Indicated Resolved Time COVID - 19 05/20/2022 05/20/2022 05/30/2022 12:1 6 AM COMMUNITY MIDWIFE documented as of this encounter Care Teams Asbestos Hazard Abatement Worker Relationship Specialty Start Date End Date Pollo Jones PAC PCP - General Physician Mechanic'S Assistant 05/11/20 03/23/22 Provider, None [place] PCP - General 03/24/22 05/19/22 Lottie Sawyer APRN, CONTROL SYSTEMS DEVELOPER CT PCP - General Family Medicine 05/20/22 Denzel Cuellar MD #[address] [address] Consulting Physician Urology 05/24/22 documented as of this encounter
--- OUTSIDE RECORDS SUMMARY | 2025-02-20 00:10 | XMS_ITS | Encounter Summary ---
Author Organization [facility] Address [address] [place] [address] Phone Care Team Providers Care Classifications Officer Cc/Cm Name Role Phone Pollo Jones Primary Care Provider U navailable Provider, None Primary Care Provider Unavailabl Lottie Soni APRN, MARINE RADIO INSTALLER AND SERVICER Primary Care Provider [phone] Denzel Cuellar MD Unavailable [phone] Reason for Visit * Reason Comments Medication Refill Encounter Details Date Type Department Care Team (Late st Contact Info) Description 07/07/2020 Refill [facility] - Primary Care - [place] [address] [place] [address] Pollo Jones, [place] Medication Refill [...] COVID-19? No / Unsure 07/02/2020 11:13 AM RIP/MOULD OPERATOR documented as of this encounter Plan of Treatment Not on file documented as of this encounter Visit Diagnoses Not on filedocumented in this encounter Additional Health Concerns Infection Onset Date Last Indicated Resolved Time COVID - 19 05/20/2022 05/20/2022 05/30/2022 12:1 6 AM RIP/MOULD OPERATOR documented as of this encounter Care Teams Classifications Officer Cc/Cm Relationship Specialty Start Date End Date Pollo Jones PAC PCP - General Physician Counter Pocket Trimmer 05/11/20 03/23/22 Provider, None [place] PCP - General 03/24/22 05/19/22 Lottie Sawyer APRN, MARINE RADIO INSTALLER AND SERVICER [place] PCP - General Family Medicine 05/20/22 Denzel Cuellar MD #[address] [address] Consulting Physician Urology 05/24/22 documented as of this encounter
--- OUTSIDE RECORDS SUMMARY | 2025-02-20 00:10 | XMS_ITS | Patient Health Record ---
Author Organization [facility] Address [address] [place] [address] Care Team Providers Care Apartment Leasing Agent Name Role Phone Rajan Atkinson Unavailable [phone] Reason For Referral No Information Medications Medication SIG (Take, Route, Frequency, Duration) Notes Start Date End Date Status Diclofenac Sodium 75 MG Tabl et Delayed Release Oral 04/13/2023 Active Sertraline HCl 100 MG Tablet Oral 04/13/2023 Active Flovent HFA 220 MCG/ACT Aerosol Inhalation 04/13/2023 Active traMADol HCl 50 MG Tablet Oral 04/13/2023 Active methylPREDNISolone 4 MG Tabl et Therapy Pack Oral 04/13/2023 Active Atomoxetine HCl 80 MG Capsule Oral 04/13/2023 Active ProAir HFA 108 (90 Base) MCG/ACT Aerosol Solution Inhalation 04/13/2023 Act miracle Symbicort 160-4.5 MCG/ACT Aerosol Inhalation 04/13/2023 Active clonazePAM 0.5 MG Tablet Oral 04/13/2023 Active Montelukast Sodium 10 MG Tablet Oral 04/13/2023 Active Immunizations Vaccine Route Administration Date Status Comme nts [place] Covid-19 Vaccine Unknown 08/17/2020 Administere d Social History Social History Additional Details Category Social Info Options Details Migrated Social History Migrated Social History Alcohol Intake: None 12/20/2021,Tobacco Years: Former smoker 12/20/2021 Plan Of Treatment No Information Insurance Providers Payer Name Payer Address Payer Phone Subscriber Number Group Number Insured Name Patient Relationship to Insured Coverage Start Date Coverage End Date [facility] [address] [place] [address] [id number] CHELA OSULLIVAN Self - patient is the insured Medical (General) History Surgical History Surgery Date(Month/Year) Sinus surgery Sinus surgery 09/12/2017
--- OUTSIDE RECORDS SUMMARY | 2025-02-20 00:10 | XMS_ITS | Encounter Summary ---
Author Organization [facility] Address [address] [place] [address] Phone Care Team Providers Care Set Up / Operator Name Role Phone Pollo Jones Primary Care Provider U navailable Provider, None Primary Care Provider Unavailabl Lottie Soni APRN, SAILING MASTER Primary Care Provider [phone] Denzel Cuellar MD Unavailable [phone] Reason for Visit * Reason Comments Medication Refill Encounter Details Date Type Department Care Team (Late st Contact Info) Description 08/06/2020 Refill [facility] - Primary Care - [place] [address] [place] [address] Pollo Jones, [place] Medication Refill [...] COVID-19? No / Unsure 08/03/2020 3:31 PM RN PSYCHIATRIC documented as of this encounter Plan of Treatment Not on file documented as of this encounter Visit Diagnoses Not on filedocumented in this encounter Additional Health Concerns Infection Onset Date Last Indicated Resolved Time COVID - 19 05/20/2022 05/20/2022 05/30/2022 12:1 6 AM RN PSYCHIATRIC documented as of this encounter Care Teams Set Up / Operator Relationship Specialty Start Date End Date Pollo Jones PAC PCP - General Physician Asbestos Removal Supervisor 05/11/20 03/23/22 Provider, None [place] PCP - General 03/24/22 05/19/22 Lottie Sawyer APRN, SAILING MASTER [place] PCP - General Family Medicine 05/20/22 Denzel Cuellar MD [address] [address] Consulting Physician Urology 05/24/22 documented as of this encounter
--- OUTSIDE RECORDS SUMMARY | 2025-02-20 00:10 | XMS_ITS | Clinical Summary ---
Author Organization [facility] Address [address] [place] [address] Care Team Providers Care Dog Licenser Name Role Phone Jaren Sosa MD Primary Care Provider [phone] Mateo Miller MD Unavailable [phone] Allergies No known active allergies Medications fluticasone propion-salmeter oL (ADVAIR DISKUS) 500-50 mcg/dose diskus inhalerIndicatio ns:Maintenance Therapy for Asthma Inhale 1 puff 2 (two) times a day Rinse mouth with water after use. Do not swallow. 60 each 3 02/20/20 21 Active Additional Information Patient taking differently:1 puff inhalationAs needed, Rinse mouth with water after use. Do not swallow., Indications: Maintenance Therapy for Asthma, Reported on 01/14/2025 budesonide-formo teroL (Symbicort) 160-4.5 mcg/actuation inhalerIndicatio ns:Severe persistent asthma without complication (HCC) Inhale 2 puffs 2 (two) times a day Rinse mouth with water after use. Do not swallow. 1 each 11 04/12/20 21 Active Additional Information Patient taking differently:2 puff inhalationAs needed, Rinse mouth with water after use. Do not swallow., Reported on 01/14/2025 tamsulosin (FLOMAX) 0.4 mg extended release capsule Take 1 capsule (0.4 mg total) by mouth daily 05/20/20 22 Active montelukast (SINGULAIR) 10 mg tablet Take 1 tablet (10 mg total) by mouth daily Active sertraline (ZOLOFT) 100 mg tablet Take 1 tablet (100 mg total) by mouth daily Active atomoxetine (STRATTERA) 80 mg capsule Take 1 capsule (80 mg total) by mouth daily Active omeprazole (PriLOSEC) 20 mg capsule Take 1 capsule (20 mg total) by mouth daily Active diphenhydrAMINE HCL 25 mg tablet,disintegr ating Take 25 mg by mouth every 4 (four) hours Active ibuprofen (ADVIL,MOTRIN) 800 mg tabletIndication s:Anti-inflammat ory Take 1 tablet (800 mg total) by mouth every 8 (eight) hours as needed for pain 60 tablet 01/23/20 25 Active ibuprofen (ADVIL,MOTRIN) 800 mg tablet take 1 tablet by oral route tid prn 90 6 07/09/19 16 025 Discontin ued(Thera py completed ) HYDROcodone-acet aminophen (NORCO) 5-325 mg per tabletIndication s:Pain Take 2 tablets by mouth every 6 (six) hours as needed for pain 16 tablet 01/16/20 25 025 Discontin ued(Thera py completed ) Active Problems Problem Noted Date Diagnosed Date Closed displaced oblique fracture of shaft of le ft radius 01/13/2025 Multiple joint pain 11/23/2023 Vitamin D deficiency 11/03/2022 Generalized anxiety disorder 12/02/2020 Gastro-esophageal reflux disease with esophagiti s 12/02/2020 Chronic midline low back pain without sciatica 0 10/15/2015 Depression 10/15/2015 Environmental allergies CLEARY (dyspnea on exertion) Encounters Date Type Department Care Team Description 02/17/2025 Telephone [facility] Orthopedics and Sports Medicine [address] [facility] [address] [place] [address] Akbar Owens MD fracture 01/27/2025 12:00 PM CDT Office Visit [facility] Medicine Orthopaedic Surgery [address] [place] [address] 2nd Floor [address] [place] [address] Mateo Miller MD Displaced oblique fracture of shaft of left radius, initial encounter for closed fracture (Primary Dx) 01/22/2025 Orders Only [facility] [address] [place] [address] [phone] Mateo Miller MD 01/22/2025 Documentation [facility] [address] [place] [address] Mateo Miller MD 01/22/2025 Telephone [facility] Orthopaedic Surgery [address] [place] [address] 2nd Floor [address] [place] [phone] Mateo Miller MD 01/21/2025 Plan of Care Documentation [facility] Medicine Occupational Therapy [address] [place] [address] 1st Floor [address] [place] [address] 01/20/2025 1:00 PM CDT Therapy [facility] Medicine Occupational Therapy [address] [place] [address] Floor [address] [place] [phone] Vani Morales OT Closed displaced oblique fracture of shaft of left radius with routine healing, subsequent encounter (Primary Dx) 01/15/2025 3:10 PM CDT - 01/15/2025 4:35 PM CDT Surgery [facility] [address] [place] [address] Mateo Miller MD LEFT RADIUS OPEN REDUCTION INTERNAL FIXATION 01/15/2025 2:44 PM CDT Anesthesia Event [facility] [address] [place] [address] Taj Gomes MD Phillips, Megan Lynn, NP 01/15/2025 12:38 PM CDT - 01/15/2025 5:18 PM CDT Hospital Encounter [facility] [address] [place] [address] Mateo Miller MD Closed displaced oblique fracture of shaft of left radius, initial encounter (Primary Dx) Discharge Disposition: Discharge to home or self care 01/14/2025 Telephone [facility] Orthopaedic Surgery [address] [place] [address] 2nd Floor [address] [place] [phone] Mateo Miller MD 01/14/2025 Telephone [facility] Medicine Orthopaedic Surgery [address] [facility] 2nd Floor [address] [place] [address] Archana Pang RMA [id number] 01/13/2025 2:30 PM CDT Office Visit [facility] Medicine Orthopaedic Surgery [address] [facility] 2nd Floor [address] [place] [address] Mateo Miller MD Displaced oblique fracture of shaft of left radius, initial encounter for closed fracture (Primary Dx) 01/09/2025 Telephone [facility] Orthopaedic Surgery [address] [facility] [address] [place] [address] Vivian Murray BS WORK COMP INTAKE FORM RIGHT ELBOW 12/27/2024 Telephone [facility] Medical Group Orthopedics and Sports Medicine [address] [facility] [address] [place] [address] Akbar Owens MD from Last 3 Months Immunizations Immunization Administration Dates Next Due Influenza, Split 03/12/2011 Influenza, Trivalent, High D ose, Split, Preservative Free, Intramuscular 03/02/2016 Tdap 07/13/2003 Surgical History Surgery Date Site/Laterality Comments OTHER SURGICAL HISTORY lumbar disc-no hardware NASAL SEPTUM SURGERY 06/12/2021 - 06/11/2022 CYST REMOVAL neck-age 5 Medical History Medical History Date Comments Calculus of kidney kidney stones Gastroesophageal reflux disease GERD Hx Other Medical attention defic it hyperactivity d/o Insomnia Insomnia Anxiety disorder Anxiety Asthma prn inhalers onl y Seasonal allergies Family History Medical History Relation Name Comments [...] Cigarettes Q uit: 06/12/2008 Smokeless Tobacco: Never Tobacco Cessation:Counseling Given: Not Answered Alcohol Use Standard Drinks/Week [...] file Legal 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 Gender Identity Not on file Sexual Orientation Not on file Obstetrics History Last Filed Vital Signs Vital Sign Reading Time Taken Comments Blood Pressure 146/75 01/15/2025 4:56 PM CDT Pulse 93 01/15/2025 5:00 PM CDT Temperature 36.4 C (97.5 F) 01/15/2025 5:00 PM CDT Respiratory Rate 28 01/15/2025 5:00 PM CDT Oxygen Saturation 94% 01/15/2025 5:00 PM CDT Inhaled Oxygen Concentration - - Weight 115.7 kg (255 lb) 01/15/2025 12:50 PM CDT Height 175.3 cm (5' 9) 01/15/2025 12:50 PM CDT Body Mass Index 37.66 01/15/2025 12:50 PM CDT Plan of Treatment Health Maintenance Due Date Last Done Comments Depression Screening 1975 Hepatitis C Screening 1975 Hepatitis B Screening 09/19/1995 Regular Well Visit/Exam 18-64 09/19/1995 DTaP/Tdap/Td Vaccine (2 - Td or Tdap) 07/13/2013 07/13/2003 Colon Cancer Screening-Colonoscopy 11/19/20202010 Pneumococcal vaccine <65 (2 of 2 - PCV) 06/15/2021 06/15/2020 Covid-19 Vaccine ( - 2024-2 6 season) 2025 08/17/2020 Influenza Vaccine (#1) 2025 , 03/02/2016, 03/01/2016, Additional history exists Medical Devices Implanted Type Area Shipping And Receiving Assistant Device Identifier Shelf Expiration Date Model / Serial / Lot [employer] Joanna Pedifrag 2.7mm 16mm Self Tap Hexalobe Cortical T10 Screw Bone [id number] - [id number] Implanted:Qty: 2 on 01/15/2025 by Mateo Miller MD at [facility] [place] Left: Radius [employer] Joanna 16 / / [employer] Joanna 2.7mm 14mm Self Tap Hexalobe Cortical T10 Screw Bone Stainless [id number] - [id number] Implanted:Qty: 2 on 01/15/2025 by Mateo Miller MD at [facility] Left: Radius [employer] Joanna 14 / / [employer] Joanna Pedifrag 2.7mm 12mm Self Tap Hexalobe Cortical T10 Screw Bone - [id number] Implanted:Qty: 1 on 01/15/2025 by Mateo Miller MD at [facility] Left: Radius [employer] Joanna 12 / / [employer] Joanna Screw Bone Cortical Cannulated St Full Thread Locking Pedifrag 2.7x12mm [id number] - [id number] Implanted:Qty: 1 on 01/15/2025 by Mateo Miller MD at [facility] Left: Radius [employer] Joanna 12 / / [employer] Joanna Pedifrag 2.7mm - [id number] Implanted:Qty: 1 on 01/15/2025 by Mateo Miller MD at [facility] Left: Radius [employer] Joanna 07 / / Explanted Type Area Shipping And Receiving Assistant Device Identifier Shelf Expiration Date Model / Serial / Lot [employer] Joanna Screw Bone Cortical Cannulated St Full Thread Locking Pedifrag 2.7x14mm [id number] - [id number] Explanted:Qty: 1 on 01/15/2025 at [facility] Left: Radius [employer] Joanna 14 / / Procedures Procedure Name Priority Date/Time Associated Diagnosis Comments HI AN PROCEDURE PLACEHOLDER Routine 01/15/2025 3:00 PM CDT HI AN ELECTIVE SUPRAGLOTTIC AIRWAY Routine 01/15/2025 3:00 PM CDT OPEN REDUCTION INTERNAL FIXATION - RADIUS 01/15/2025 2:46 PM CDT Closed displaced oblique fracture of shaft of left radius, initial encounter Case Notes 01/14 - Per [facility] move to 01/15 at the [facility]. NB Special Needs ANCEF, MODULAR HAND SET HI AN PROCEDURE PLACEHOLDER Routine 01/15/2025 2:30 PM CDT HI CAST SUP LNG ARM SPLINT FBRG Routine 01/14/2025 8:41 AM CDT Displaced oblique fracture of shaft of left radius, initial encounter for closed fracture HI APPLICATION LONG ARM SPLINT SHOULDER HAND Routine 01/14/2025 8:41 AM CDT Displaced oblique fracture of shaft of left radius, initial encounter for closed fracture COLONOSCOPY 11/19/2010 12:00 AM CDT from Last 3 Months or Most Recently Relevant to Health Maintenance Results * HI AN ELECTIVE SUPRAGLOTTIC AIRWAY, HI AN PROCEDURE PLACEHOLDER (01/15/2025 3:00 PM CDT) Meredith Weaver CRNA - 01/15/2025 3:00 PM CDT Meredith Cabrera CRNA 01/15/2025 3:01 PM Airway Patient location: OR Urgency: elective Indications for airway management: anesthesia Difficult airway: no Staff: Placed by: HOME RESTORATION SERVICE CLEANER: Meredith Cabrera CRNA Airway prep: Preoxygenated: yes Patient position: sniffing Mask difficulty assessment: 0 - not attempted Spontaneous ventilation during airway: absent Sedation level during airway: GA Final airway details: Final airway type: supraglottic airway Final supraglottic airway: unique SGA size: 5 Number of attempts: 1no Taj Gomes MD ANESTHESIA ORDERABLES Final Result * HI AN PROCEDURE PLACEHOLDER (01/15/2025 2:30 PM CDT) Taj Ge MD - 01/15/2025 2:30 PM CDT Taj Gomes MD 01/15/2025 2:30 PM Peripheral Block Patient location during procedure: pre-op holding Reason for block: post-op pain management per surgeon request Ultrasound image in chart or stored: yes Block type: single shot Laterality: left Block type: brachial - supraclavicular Staff: Placed by: Anesthesiologist: Taj Gomes MD Procedure prep: Preprocedure checklist: patient identified, procedure contraindications assessed, site marked, procedure consent, surgical consent, IV checked, risks, benefits and alternatives discussed, monitors and equipment checked and timeout performed Patient position: sitting and head of bed elevated Procedure performed while patient: sedate with meaningful contact Monitoring: oximetry Supplemental O2: nasal cannula Prep solution: chlorhexidine/alcohol Skin infiltrated with lidocaine 1%: yes Peripheral nerve block: Technique: ultrasound guided Needle type: short-bevel and echogenic Needle gauge: 21 G Needle length: 100 mm Injection assessment: injection made incrementally with constant monitoring, local visualized surrounding nerve on ultrasound, negative aspiration for heme, no paresthesias noted, normal resistance to injection and see flowsheet for medication details Assessment: Block success: full evaluation pending Events: patient tolerated procedure well with no complications Taj Gomes MD ANESTHESIA ORDERABLES Final Result * HI APPLICATION LONG ARM SPLINT SHOULDER HAND, HI CAST SUP LNG ARM SPLINT FBRG (01/14/2025 8:41 AM CDT) Narrative Pollo Dash - 01/14/2025 8:41 AM CDT Pollo Dash 01/14/2025 8:42 AM Ortho Casting/Splinting Documentation Date/Time: 01/14/2025 8:41 AM Performed by: Pollo Dash Authorized by: Mateo Miller MD Sensation: Normal Skin Condition: Clean, dry, and intact Azael/Sutures Removed: No Pin Pulled: No Cast Removed: No Cast Applied: Yes Overwrap: No Location: Arm Arm: L lower arm Splint type: Posterior long-arm splint Supplies: Fiberglass Additional Supplies: Cotton padding and elastic bandage(s) Number of fiberglass rolls used: 1 Capillary Refill: Normal Patient tolerance of procedure: Tolerated well, no immediate complications us Mateo Miller MD IN CLINIC/BEDSIDE ORDERAB LES Final Result * COLONOSCOPY (11/19/2010 12:00 AM CDT) Anatomical Region Laterality Modality Other Narrative 11/19/2010 12:00 AM CDT Ordered by an unspecified provider. Procedure Note ProviderQuinton MD - 11/19/2010 12:00 AM CDT PROCEDURE REPORT Patient: CHELA OSULLIVAN Account: [id number] Room No: : 1975 Patient Type: OPA Attend.: Adonay Sánchez M.D. Admit Date: 11/19/2010 Dict.: Adonay Sánchez M.D. Disch. Date: NAME OF PROCEDURE: Colonoscopy. DATE OF PROCEDURE: November 19, 2010. HISTORY: This is a 35-year old male with blood in the stool. PHYSICAL EXAMINATION: Well developed male. Lungs are clear.Cardiovascular examination is unremarkable. PROCEDURE: Colonoscopy was performed with the [employer] video endoscope.The patient was premedicated by Anesthesia. [...] M.D. DR/teresita TD: 11/19/2010 12:08 CC: Jaren Sosa M.D. PROCEDURE REPORT Authenticated by Adonay Sánchez MD On 11/22/2010 08:04:02 AM Historical Provider ENDOSCOPY PROCEDURES Kelsi l Result from Last 3 Months or Most Recently Relevant to Health Maintenance Insurance [facility] WORK[employer] COMPENSATION GENERIC Advance Directives For more information, please contact: [phone] * Full Code (Latest Code Status on File) Date Activated Date Inactivated Comments 01/15/2025 4:10 PM 01/15/2025 9:31 PM Care Teams Dog Licenser Relationship Specialty Start Date End Date Jaren Sosa MD PCP - General 07/09/15 [place] [id number] [place] [address] Surgeon Orthopedic Surgery 01/15/25
--- OUTSIDE RECORDS SUMMARY | 2025-02-20 00:10 | XMS_ITS | Clinical Summary ---
Author Organization [facility] Address [facility] [place] [address] Care Team Providers Care Horticultural Specialty Grower Field Name Role Phone Unavailable Primary Care Provider [...] COVID-19 Vaccine ( - 2023-2 5 season) 2025 Meningococcal B Vaccine Aged Out No l [...]
--- OUTSIDE RECORDS SUMMARY | 2025-02-20 00:10 | XMS_ITS | Encounter Summary ---
Author Organization [facility] Address [address] [place] [address] Phone Care Team Providers Care Bark Tanner Name Role Phone Pollo Jones Primary Care Provider U navailable Provider, None Primary Care Provider Unavailabl Lottie Soni APRN, LOTUS NOTES ADMINISTRATOR Primary Care Provider [phone] Denzel Cuellar MD Unavailable [phone] Reason for Visit * Reason Comments Medication Refill Encounter Details Date Type Department Care Team (Late st Contact Info) Description 09/15/2020 Refill [facility] - Primary Care - [place] [address] [place] [address] Pollo Jones, [place] Medication Refill [...] 19 05/20/2022 05/20/2022 05/30/2022 12:1 6 AM TOXICS PROGRAM OFFICER documented as of this encounter Care Teams Bark Tanner Relationship Specialty Start Date End Date Pollo Jones PAC PCP - General Physician Road Mender 05/11/20 03/23/22 Provider, None [place] PCP - General 03/24/22 05/19/22 Lottie Sawyer APRN, LOTUS NOTES ADMINISTRATOR [place] PCP - General Family Medicine 05/20/22 Denzel Cuellar MD [address] [facility] [address] [place] [address] Consulting Physician Urology 05/24/22 documented as of this encounter
--- OUTSIDE RECORDS SUMMARY | 2025-02-20 00:10 | XMS_ITS | Clinical Summary ---
Author Organization [facility] Address [address] [place] [address] Care Team Providers Care Web Coordinator Name Role Phone Unavailable Primary Care Provider Unavailabl e Source Comments [facility],non-owned Affiliates and Associated Physician Practices is amultiple site organization consisting of ambulatory clinics and hospital sitesin [place], [place], [place] and [place]. This disclosure is being madepursuant to the Care Everywhere program and may not contain all information available regarding this patient. Last updated 18.[facility] Allergies No known active allergies Medications * [...]
[2025-02-20] MEDS: ACETAMINOPHEN 500 MG TABLET 1000 MG PO (06:42)
[2025-02-20] MEDS: LACTATED RINGERS 1,000 ML 30 ML IV CONT ×2 (06:50→10:12)
[2025-02-20] MEDS: KETOROLAC 15 MG/ML VIAL (*BKC) IV PUSH (06:52)
[2025-02-20] MEDS: MIDAZOLAM HCL (*CRX) 2 MG/2 ML VIAL IV PUSH (06:55)
--- NOTE | 2025-02-20 07:34 | WPDANESEPPF ---
Anes - Initial Pre Proc Eval Procedure: Operation Date: 02/20/25 08:15 Proposed Procedures p Open Reduction Internal Fixation Right Ankle Fracture, - Kirk Wright MD s Right Ankle Ligament Repair - Kirk Wright MD Date/Time: 02/20/25 07:34 Surgeon: Kirk Wright MD Pre Op Diagnosis: right ankle fx Patient Data Age: 49 Gender: M Height: 1.75 m Weight: 117.2 kg Last Vital Signs Temp 36.3 C L 02/20/25 06:20 Pulse 91 02/20/25 06:20 Resp 20 02/20/25 06:20 BP 143/78 H 02/20/25 06:20 Pulse Ox 99 02/20/25 06:20 O2 Del Method Room Air 02/20/25 06:20 Allergies Allergy/AdvReac Type Severity Reaction Status Date / Time No Known Allergies Allergy Verified 02/20/25 07:11 Home Medications ?Medication ?Instructions ?Recorded ?Confirmed ?Type albuterol sulfate 90 mcg/actuation See Rx Instructions .Route 03/04/20 02/18/25 Rx aerosol inhaler (Ventolin HFA) .COMPLEX ##18 montelukast 10 mg tablet See Rx Instructions .Route 12/21/20 02/20/25 Rx .COMPLEX #90 tabs sertraline 100 mg tablet 100 mg PO DAILY 12/27/24 02/20/25 History cyclobenzaprine 7.5 mg tablet 7.5 mg PO TID PRN muscle spasm #30 02/18/25 02/20/25 Rx tabs ibuprofen 800 mg tablet 800 mg PO Q6H 02/18/25 02/20/25 History oxycodone-acetaminophen 7.5 mg-325 1 tablet PO Q4-6H PRN pain #30 tabs 02/18/25 02/18/25 Rx mg tablet hydrocodone 5 mg-acetaminophen 325 1 tablet PO Q6-8H 02/20/25 02/20/25 History mg tablet Patient hx anesthesia problems: none Family hx anesthesia problems: none Results Review: All pre-operative results and documents have been reviewed as part of the pre-operative evaluation. [facility] Past Medical History Medical History (Updated 02/19/25 @ 14:49 by Da Roa DO) Asthma Sprain of deltoid ligament of right ankle, initial encounter Acute disruption of syndesmosis of ankle joint Closed right fibular fracture Fatigue Anxiety GERD (gastroesophageal reflux disease) Dyspnea on exertion Chronic bronchitis Surgical History Surgical History (Updated 02/19/25 @ 13:31 by Marci Holt) History of surgery on arm ORIF Dr. Miller History of sinus surgery Hx of nasal septoplasty Family History Family History Other Diabetes mellitus Social History Social History (Updated 02/19/25 @ 13:32 by Marci Holt) Years smoked: 31 Smoking status: Former smoker Tobacco type: cigarettes Smoking end date: 02/18/23 Alcohol intake: current Drinks per week: 2 Substance use: current Substance use type: marijuana Other substance usage details: Daily Last use: 12/12/19 Do You Feel Safe in your Home?: No Lack of Transportation: No Lack of Food: Never True Current Housing: I Have Housing Concerned About Future Housing: No Difficulty Paying Gas/Electric Bills: No Difficulty Paying for Meds: No Currently Unemployed: No Education: High School Diploma/GED Difficulty w/ Childcare or Family Care: No Living arrangements: with family Occupation/Education: occupation Additional occupation/education comments: [employer] Gender identity (if verbalized by the patient): Male Spiritual care concerns: No Anes - Eval Final PreProcedure Day of Procedure 02/20/25 07:34 Patient weight: obese Heart: regular rate and rhythm Lungs: clear to auscultation Airway: Mallampati scale class II and special considerations poor dentition (several loose teeth including front teeth. Informed patient of risk of teeth falling out and he accepted risk) Neurological: alert and oriented Last oral intake: >/= 8 hours ASA classification: III Emergent: no Anesthetic plan: proceed Anesthesia type and monitoring: general LMA and standard monitoring Results Review: All pre-operative results and documents have been reviewed as part of the pre-operative evaluation. Informed Consent: The patient's anesthetic plan and its attendant risks and benefits were discussed with the patient/family/POA. Questions were solicited and answers provided to the satisfaction of the patient/family/POA.
--- NOTE | 2025-02-20 08:10 | WPDHPUPDATE1 ---
History and Physical Update Update Date/Time: 02/20/25 08:10 History and Physical has been reviewed, including an updated exam of the patient. There are NO changes in the patient's condition. Risks, benefits, and alternatives have been discussed and questions answered. Patient agrees to proceed with procedure.
[2025-02-20] MEDS: ceFAZolin 2 GM in SODIUM CHLORIDE 0.9% IV 50 ML 100 ML IVPB (08:27)
[2025-02-20] MEDS: BUPIVACAINE/EPINEPHRINE 0.5% 50 ML VIAL 30 ML INFILTRATE (09:05)
--- NOTE | 2025-02-20 10:25 | W.PM.PROC2 ---
Procedure Note - Detailed Date of Procedure 02/20/25 Pre-op Diagnosis right ankle fx, ankle syndesmosis and deltoid ligament disruption Post-op Diagnosis Same Procedure Performed Open reduction internal fixation right ankle distal syndesmosis, direct repair deltoid ligament. Surgeon Kirk Wright MD Copywriter 1st assistant laboratory director Anesthesia General Indications 49-year-old who injured his right ankle sustained fracture dislocation the ankle joint. He presents for operative treatment. Findings Disruption of the deltoid ligament from the medial malleolus. Chondral fragments from the medial talar dome in the ankle joint. Disruption distal syndesmosis, midshaft fibula fracture. Description of Procedure After informed consent, the operative extremity was marked in the preoperative holding area. Patient received intravenous antibiotics. Patient was then taken to the operating room and underwent general anesthesia by the anesthesia team. They were positioned supine on the operating room table. A time-out was performed confirming the patient, site of the surgery, operative plan. Lower extremity then prepped and draped in the usual sterile surgical fashion using ChloraPrep skin solution. Foot and ankle exsanguinated and a thigh tourniquet inflated to 250 mmHg. Longitudinal incision made over the lateral ankle distal fibula with a 15 blade knife. Hemostasis controlled with electrocautery. Full-thickness soft tissue flaps developed and the fascia was incised in line with the skin incision. Periosteum incised in line with the skin incision and elevated. Fluoroscopy then used to guide placement and a 2 hole plate was placed against the lateral fibula. Ankle and syndesmosis were reduced and syndesmosis fixed with tight suture fixation system. Drill hole placed from lateral to medial and verified with image intensification. Tight rope device placed and deployed medially. Tightening on the lateral aspect with the ankle in neutral position. Good alignment and stability of the fracture noted. Good alignment of the syndesmosis and good stability of the syndesmosis noted. Image intensification used to confirm placement of the hardware. Wound thoroughly irrigated with antibiotic solution. Fascia repaired with 00 Vicryl interrupted suture. Subcutaneous tissue repaired with 000 Monocryl interrupted suture and 3-0 Monocryl running subcuticular stitch. Stress views of the ankle and performed. Instability and disruption of the medial deltoid ligament noted. Medial longitudinal incision made over the medial malleolus 15 blade hemostasis control. Fascia incised in line skin incision. The deep deltoid ligament noted to be avulse from the medial malleolus. And medial joint was inspected and 2 chondral fragments were noted to be loose from the medial talar dome. These were removed in the ankle joint was irrigated suctioned. Deltoid ligament then repaired with 2 2.0 mm fiber tacks placed through drill holes of the medial malleolus and verified image intensification. Suture well been through the deltoid ligament and the deltoid ligament repair to the medial malleolus. Stress views of the ankle confirmed good stability of the ankle mortise in all directions. Medial wound irrigated and fascia repaired with 2-0 Vicryl interrupted suture. Subcutaneous tissue repaired with 3-0 Monocryl interrupted suture and skin repaired with 3-0 Monocryl running subcuticular stitch. Sterile dressings applied. Patient awoken from anesthesia, extubated and taken to the recovery room in stable condition. All sponge, needle and instrument counts correct at the end of the case. Palpable dorsalis pedis pulse noted prior to dressing. Implants Arthrex 2 hole plate with 2 tight rope syndesmosis fixation devices. 2.0 mm fiber tack x2 Estimated Blood Loss 5 Tourniquet Time Total Tourniquet Time: 66 Drains No Packing No Pathology None sent Complications None Condition Stable Disposition PACU [facility] Billing Surgery - Charge Forward: Surgery Billing
[2025-02-20] MEDS: oxyCODONE HCL (*CRX) 5 MG TAB IR PO (11:20)
[2025-02-20] MEDS: fentaNYL CITRATE INJ (*CRX) 100 MCG/2 ML VIAL 25 MCG IV PUSH ×2 (11:40→11:43)
== END 2025-02-20 11:48 | disposition home or self-care (01) ==
PROVIDERS: PCP Nurse Practitioner Family; Visit Provider Orthopaedic Surgery
PROC: (CPT 27829; principal; 2025-02-20 08:15)
PROC: (CPT 27829; 2025-02-20 08:15)
DX: S82.451A Displaced comminuted fracture of shaft of right fibula, initial encounter for closed fracture (principal); S93.421A Sprain of deltoid ligament of right ankle, initial encounter; K21.9 Gastro-esophageal reflux disease without esophagitis; J45.909 Unspecified asthma, uncomplicated; F41.9 Anxiety disorder, unspecified; J42 Unspecified chronic bronchitis; R53.83 Other fatigue; X50.1XXA Overexertion from prolonged static or awkward postures, initial encounter; F12.90 Cannabis use, unspecified, uncomplicated; E66.9 Obesity, unspecified; Z68.38 Body mass index [BMI] 38.0-38.9, adult; Z79.51 Long term (current) use of inhaled steroids; Z79.891 Long term (current) use of opiate analgesic; Z79.1 Long term (current) use of non-steroidal anti-inflammatories (NSAID); Z98.890 Other specified postprocedural states; Z87.891 Personal history of nicotine dependence
CPT/HCPCS: 27829; 27695; 99199; J0690; A9270; C1713; J1100; J1171; J1885; J2003; J2250; J2405; J2704; J3010; J7120